=== PATIENT | female | born 1995 | race Caucasian/White ===

== ENCOUNTER 2019-09-22 12:12 | Outpatient (CLI) | payer OTHER, SELFPAY ==
--- NOTE | ~2019-09-22 | XR_ITS ---
EXAMINATION: XR wrist LT w scaphoid DATE: 09/22/2019 12:40 INDICATION: Left wrist pain. TECHNIQUE: 5 views of left wrist were obtained. COMPARISON: None. FINDINGS: Bone alignment is normal. No fracture. Joint spaces are well maintained. IMPRESSION: 1. Normal left wrist. Reviewed, dictated and finalized at location A. IMPRESSION: 1. Normal left wrist.
== END 2019-09-22 12:13 | disposition home or self-care (01) ==
LOC: ANHIMG 12:17
PROVIDERS: PCP Family Medicine; Visit Provider Physician Assistant
DX: M25.532 Pain in left wrist (principal)
CPT/HCPCS: 73110

== ENCOUNTER 2020-01-10 16:24 | Emergency (ER) | payer OTHER, SELFPAY ==
--- NOTE | ~2020-01-10 | XR_ITS ---
EXAMINATION: XR chest 2V EXAM DATE: 01/10/2020 16:54 INDICATION: Anterior chest pain for 2 weeks. TECHNIQUE: Frontal and lateral projections of the chest obtained and reviewed. There is no prior kyle dy for comparison. FINDINGS: The lungs are clear. There are no pleural effusions. The cardiomediastinal silhouette is within normal limits. There is no pneumothorax suspected. The bones and soft tissues are unremarkab le. IMPRESSION: No acute cardiopulmonary findings. Reviewed, dictated and finalized at location B.
[2020-01-10 16:35] VITALS: BP 154/97; PULSE 108; RESP 14; TEMP 36.9; O2SAT 100
--- NOTE | 2020-01-10 16:39 | ED.GENADULT ---
HPI - General Adult General Chief complaint: Upper Respiratory Infection Stated complaint: trouble breathing Time Seen by Provider: 01/10/20 16:40 Source: patient Mode of arrival: ambulatory Limitations: no limitations History of Present Illness HPI narrative: 24-year-old female patient presents to the [facility] with complaints of shortness of breath for the past 2 weeks. Patient states that she did have a coworker and they came up positive for COVID and patient states that she was tested on Friday and she was negative. Patient states that she does have a little bit of chest pain at times when she breathes in but no chest pain when breathing out. Patient states that she does have a cough at times and a little bit of congestion to the nose but no runny nose, no ear pain, no sore throat. No abdominal pain, nausea, vomiting or diarrhea. No fevers. And denies being on control at this time. Patient does have a history of asthma and does have an inhaler at home but she states that it last month and she has not tried using her inhaler at this time. Related Data Home Medications Medication Instructions Recorded Confirmed escitalopram oxalate 10 mg tablet 10 mg PO DAILY 04/26/19 01/10/20 Allergies Allergy/AdvReac Type Severity Reaction Status Date / Time cefdinir Allergy Unknown Abdominal Verified 01/10/20 16:46 pain Cephalosporins Allergy Unknown Abdominal Verified 01/10/20 16:46 pain citalopram Allergy Unknown Confusion Verified 01/10/20 16:46 Penicillins Allergy Unknown Urticaria Verified 01/10/20 16:46 Plan B (1.5mm levorogestrel) Allergy Intermediate urticaria Uncoded 11/09/19 11:15 Review of Systems Review of Systems: Narrative: CONSTITUTIONAL: Denies fever, chills, or sweats. EYES: Denies visual changes, redness, or discharge. ENT: Denies rhinorrhea, congestion, sore throat, or otalgia. CARDIOVASCULAR: Denies chest pain, palpitations, or edema. RESPIRATORY: Positive cough with dyspnea. GASTROINTESTINAL: Denies abdominal pain, nausea, vomiting, or diarrhea. GENITOURINARY: Denies dysuria or hematuria. SKIN: Denies rash or itching. MUSCULOSKELETAL: Denies back pain, joint pain, or myalgia. NEUROLOGIC: Denies headache, numbness, or weakness. PSYCHIATRIC: Denies anxiety or depression. COUNTS INCLUDE 234 BEDS AT THE [facility] Past Medical History Medical History Allergic drug reaction Left wrist pain Family History Family History Mother Diabetes mellitus Family history of mental disorder Family history of migraine headaches Hypertension Patient's mother is in good health Family history of restless legs syndrome Grandparent Family history of hypercholesterolemia Family history of mental disorder Depression Hypertension Cerebrovascular accident Family history of dementia, Onset Age: 79 Father Hypertension Patient's father is in good health Social History Social History Smoking status: Never smoker Alcohol intake: current Additional living arrangements comments: with parents 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 Gender identity (if verbalized by the patient): Female Comments At the time of my signature I agree with nursing past medical history, surgical, social, and family history. There is no relevant family history pertinent to the presenting complaint. Exam Narrative: Exam Narrative: GENERAL: Well-appearing, well-nourished, and in no acute distress. HEAD: Normocephalic, atraumatic. EYES: PERRLA and EOMI. ENT: Nares clear, no rhinorrhea or epistaxis. Mucous membranes moist. Bilateral TMs are clear with no erythema or foreign bodies of the canal. Posterior pharynx with no erythema, tonsillar margin, exudates or lesions present. NECK: Supple. No lymphadenopathy CHEST: Clear to auscultation. No respirato
== END 2020-01-10 17:13 | disposition home or self-care (01) ==
PROVIDERS: Emergency Provider Nurse Practitioner Family; PCP Family Medicine
DX: J45.21 Mild intermittent asthma with (acute) exacerbation (principal)
CPT/HCPCS: 71046; 99213; G0463

== ENCOUNTER 2020-02-18 10:54 | Emergency (ER) | payer OTHER, SELFPAY ==
--- NOTE | ~2020-02-18 | XR_ITS ---
EXAMINATION: XR ankle LT min 3V EXAM DATE: 02/18/2020 11:17 INDICATION: Initial encounter following injury, with pain of the left ankle. TECHNIQUE: Left ankle frontal, lateral and oblique projections obtained and reviewed. There is no pr ior study for comparison. FINDINGS: There are several ossifications between the left fibular tip and the talus, one of which i s clearly well corticated and chronic. Less certain about the smaller ossification, potentially could be a superimposed acute avulsion fracture. Please clinically correlate. No other suspicious finding s. IMPRESSION: Left distal fibular tip chronic or acute on chronic avulsion injury. Reviewed, dictated and finalized at location B. IMPRESSION: Left distal fibular tip chronic or acute on chronic avulsion injur y.
[2020-02-18 11:03] VITALS: BP 136/66; PULSE 107; RESP 16; TEMP 37.2; O2SAT 100
--- NOTE | 2020-02-18 11:10 | PC.NURSE ---
PT DECLINES WHEELCHAIR TO RADIOLOGY
--- NOTE | 2020-02-18 11:53 | ED.LOWEXIN ---
HPI - Extremity Injury (Lower) General Chief Complaint: Extremity Injury, Lower Stated Complaint: left ankle twist Time Seen by Provider: 02/18/20 11:42 Source: patient and RN notes reviewed Mode of arrival: ambulatory Limitations: no limitations History of Present Illness HPI Narrative: Patient presents today complaining of an injury To her left ankle. She fell while walking just prior to arrival. Numbness or tingling in the leg or foot. She has been nonambulatory since the injury and has been using crutches. She currently rates her pain 8/10 and has tried no medication or [id number] interventions prior to arrival. Reports previous ankle fracture in the currently affected ankle as a child. Most of her pain is lateral. MD complaint: ankle injury Related Data Home Medications Medication Instructions Recorded Confirmed escitalopram oxalate 10 mg tablet 10 mg PO DAILY 04/26/19 02/18/20 flu vac [id number] 36mos up(PF) See Rx Instructions .ROUTE .COMPLEX 02/18/20 02/18/20 [Afluria Qd 2020-21(3yr up)(PF)] Allergies Allergy/AdvReac Type Severity Reaction Status Date / Time cefdinir Allergy Unknown Abdominal Verified 02/18/20 11:12 pain Cephalosporins Allergy Unknown Abdominal Verified 02/18/20 11:12 pain citalopram Allergy Unknown Confusion Verified 02/18/20 11:12 Penicillins Allergy Unknown Urticaria Verified 02/18/20 11:12 Plan B (1.5mm levorogestrel) Allergy Intermediate urticaria Uncoded 11/09/19 11:15 Review of Systems Review of Systems: Narrative: CONSTITUTIONAL: Denies body aches, fever, chills, or sweats. EYES: Denies visual changes, redness, or discharge. ENT: Denies rhinorrhea, congestion, sore throat, or otalgia. CARDIOVASCULAR: Denies chest pain, palpitations, or edema. RESPIRATORY: Denies cough or dyspnea. GASTROINTESTINAL: Denies abdominal pain, nausea, vomiting, or diarrhea. GENITOURINARY: Denies dysuria or hematuria. SKIN: Denies rash, itching, or wounds. MUSCULOSKELETAL: Denies back pain, or myalgia. +Left ankle injury NEUROLOGIC: Denies headache, numbness, tingling, or weakness. PSYCH: Denies depression or anxiety. [facility] Social History Social History (Reviewed 01/10/20 @ 16:43 by AJ Fay Smoking status: Never smoker Alcohol intake: current Additional living arrangements comments: with parents 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 Gender identity (if verbalized by the patient): Female Comments At time of signature, I have reviewed and agree with nursing past medical, surgical, social and family history unless otherwise noted. Please see nursing chart for further information. There is no relevant family history pertinent to the presenting complaint Exam Narrative: Exam Narrative: GENERAL: Well-appearing, well-nourished, and in no acute distress. HEAD: Normocephalic, atraumatic. EYES: EOMI. No redness or drainage. Conjunctivae normal. ENT: Mucous membranes pink and moist. NECK: Normal AROM. CHEST: No respiratory distress. EXTREMITIES: Left ankle:Tenderness and mild edema to the lateral malleolus with mild ecchymosis. No tenderness posteriorly or medially. No tenderness to the foot. Distal sensation intact. Capillary refill normal. Pedal pulse normal. Limited AROM of the ankle due to pain. SKIN: Warm, dry, no rash. Capillary refill normal. Normal skin turgor. NEURO: No focal deficits. Alert and oriented x3. Gait steady. PSYCH: Normal affect. No signs of depression or anxiety. Course Course Emergency Course: Patient has a walking boot at home. We will Daniel wrap her ankle here, she will go home and put on her walking boot, and follow-up with orthopedics. Vital Signs Vital signs: Vital Signs Temperature 98.9 F 02/18/20 11:03 Pulse Rate 107 H 02/18/20 11:03 Respiratory Rate 16 02/18/20 11:03 Blood Pressure 136/66 02/18/20 11:03 Pulse Oximetry 100 02/18/20 11:03 Temperature 98.9 F 02/18/20 11:03
== END 2020-02-18 12:00 | disposition home or self-care (01) ==
PROVIDERS: Emergency Provider Nurse Practitioner; PCP Family Medicine
DX: S82.832A Other fracture of upper and lower end of left fibula, initial encounter for closed fracture (principal); W19.XXXA Unspecified fall, initial encounter; J45.909 Unspecified asthma, uncomplicated; F32.9 Major depressive disorder, single episode, unspecified
CPT/HCPCS: 73610; 99214; G0463

== ENCOUNTER 2020-04-21 00:43 | Outpatient (CLI) | payer OTHER, SELFPAY ==
[2020-04-21 21:25] LABS: SARS-CoV-2 RNA PCR Negative
== END 2020-04-21 00:44 | disposition home or self-care (01) ==
LOC: ANHCOVIDDT 00:43
PROVIDERS: PCP Family Medicine; Visit Provider Orthopaedic Surgery
DX: Z01.812 Encounter for preprocedural laboratory examination (principal); Z20.828 Contact with and (suspected) exposure to other viral communicable diseases
CPT/HCPCS: 87635; C9803; U0003

== ENCOUNTER 2020-04-24 01:44 | Day surgery (SDC) | payer OTHER, SELFPAY ==
[2020-04-10 13:20] VITALS: BMI 27.4
[2020-04-24] MEDS: ACETAMINOPHEN 500 MG TABLET 1000 MG PO (12:25)
[2020-04-24 12:30] VITALS: BP 127/73; PULSE 92; RESP 16; TEMP 36.7; O2SAT 98
[2020-04-24] MEDS: LACTATED RINGERS 1,000 ML 30 ML IV CONT (12:35)
[2020-04-24] MEDS: KETOROLAC 15 MG/ML VIAL (*BKC) IV PUSH (12:38)
--- NOTE | 2020-04-24 13:00 | WPDANESEPPF ---
Anes - Initial Pre Proc Eval Procedure: Operation Date: 04/24/20 14:00 Proposed Procedures p Left First Dorsal Compartment Release - Ehsan Pa MD Date/Time: 04/24/20 13:00 Surgeon: Ehsan Pa MD Pre Op Diagnosis: Left De Quervains Disease Patient Data Age: 25 Gender: F Height: 5 ft 6 in Weight: 76.2 kg Last Vital Signs Temp 36.7 C 04/24/20 12:30 Pulse 92 04/24/20 12:30 Resp 16 04/24/20 12:30 BP 127/73 04/24/20 12:30 Pulse Ox 98 04/24/20 12:30 Allergies Allergy/AdvReac Type Severity Reaction Status Date / Time Penicillins Allergy Severe Urticaria Verified 04/24/20 12:06 citalopram Allergy Mild Rash Verified 04/24/20 12:06 cefdinir AdvReac Mild Abdominal Verified 04/24/20 12:06 pain Cephalosporins AdvReac Mild Abdominal Verified 04/24/20 12:06 pain Plan B (1.5mm levorogestrel) Allergy Mild urticaria Uncoded 04/24/20 12:06 Home Medications Medication Instructions Recorded Confirmed Type albuterol sulfate [Ventolin HFA] 2 puff INHALATION PRN PRN 04/10/20 04/10/20 History apple cider vinegar 500 mg PO QAM 04/10/20 04/24/20 History atomoxetine [Strattera] 80 mg PO QAM 04/10/20 04/24/20 History trazodone 50 mg PO HS 04/10/20 04/24/20 History Patient hx anesthesia problems: none Family hx anesthesia problems: none PMFSH Past Medical History Medical History ADHD (attention deficit hyperactivity disorder), inattentive type Allergic drug reaction Chronic anxiety Chronic depression Left ankle sprain Left wrist pain Mild intermittent asthma in adult without complication Panic attacks Family History Family History Mother Diabetes mellitus Family history of mental disorder Family history of migraine headaches Hypertension Patient's mother is in good health Family history of restless legs syndrome Grandparent Family history of hypercholesterolemia Family history of mental disorder Depression Hypertension Cerebrovascular accident Family history of dementia, Onset Age: 79 Father Hypertension Patient's father is in good health Social History Social History Smoking status: Never smoker Alcohol intake: current Alcohol use details: 2 DRINKS PER MONTH Living arrangements: with family Additional living arrangements comments: with parents Additional occupation/education comments: [employer] Gender identity (if verbalized by the patient): Female Spiritual care concerns: No Anes - Eval Final PreProcedure Day of Procedure 04/24/20 13:00 Patient weight: overweight Heart: regular rate and rhythm Lungs: clear to auscultation Airway: Mallampati scale class II Neurological: alert and oriented Last oral intake: >/= 8 hours ASA classification: III Emergent: no Anesthetic plan: proceed Anesthesia type and monitoring: general LMA and standard monitoring Informed Consent: The patient's anesthetic plan and its attendant risks and benefits were discussed with the patient/family/POA. Questions were solicited and answers provided to the satisfaction of the patient/family/POA.
--- NOTE | 2020-04-24 13:19 | WPDHPUPDATE1 ---
History and Physical Update Update Date/Time: 04/24/20 13:19 History and Physical has been reviewed, including an updated exam of the patient. There are NO changes in the patient's condition. Risks, benefits, and alternatives have been discussed and questions answered. Patient agrees to proceed with procedure.
[2020-04-24] MEDS: CLINDAMYCIN 900 MG/D5W 50 ML 900 MG/50 ML PIGGYBACK 50 MG IVPB (13:23)
[2020-04-24 13:54] VITALS: BP 121/73; PULSE 89; RESP 14; O2SAT 100
--- NOTE | 2020-04-24 13:59 | PM.PROC ---
Procedure Note - Detailed Date of procedure: 04/24/20 Pre-op diagnosis: Left De Quervains Disease Post-op diagnosis: same Procedure performed: Left first dorsal compartment release Description of procedure: The patient was identified and proper site identified. She was taken to the operating room and transferred to the OR table placing her supine taking care to pad her torso and extremities. Nonsterile tourniquet was placed high on the left arm which was then prepped and draped in usual sterile fashion. She was administered IV sedation and several cc of 0.25% Marcaine and epinephrine chiseling was injected into the subcutaneous tissue over the left radial styloid. The extremity was exsanguinated and tourniquet inflated 250 mmHg remaining up for approximately 12 minutes. Longitudinal incision was made over the left first dorsal compartment. Subcutaneous tissue was bluntly dissected protecting neurovascular structures. The first dorsal compartment was identified and divided longitudinally in line with the incision. Was actually two parts to the compartment with a fiber soft tissue divider in between. This was excised to provide a complete release. The wound was irrigated with saline. Skin edges reapproximated with for 0 Prolene suture and Steri-Strips applied. Sterile dressing was applied. She tolerated the procedure well. She was transferred back to a cart and taken recovery area in stable condition. There were no known intraoperative complications. Estimated blood loss was negligible. Anesthesia: MAC and local Surgeon: Ehsan Pa MD Estimated blood loss (mL): 0 Drains: No Packing: No Pathology: none sent Complications: No immediate complications Condition: stable Disposition: PACU
[2020-04-24 14:24] VITALS: BP 108/64; PULSE 81; RESP 18; O2SAT 97
[2020-04-24 14:44] VITALS: BP 121/79; PULSE 68; RESP 16
== END 2020-04-24 14:55 | disposition home or self-care (01) ==
PROVIDERS: PCP Family Medicine; Visit Provider Orthopaedic Surgery
PROC: (CPT 25000; principal; 2020-04-24 14:00)
DX: M65.4 Radial styloid tenosynovitis [de Quervain] (principal); J45.20 Mild intermittent asthma, uncomplicated; F41.8 Other specified anxiety disorders; F90.0 Attention-deficit hyperactivity disorder, predominantly inattentive type
CPT/HCPCS: 25000; 87635; A9270; C9803; J1885; J2250; J2704; J3010; J7120; U0003

== ENCOUNTER 2021-12-11 00:11 | Day surgery (SDC) | payer BC, SELFPAY ==
[2021-12-04 15:06] VITALS: BMI 26.6
--- NOTE | 2021-12-04 15:13 | PC.NURSE ---
Report to the Outpatient Waiting Room, entrance under the green pavilion located off [facility], at time 0600 on date 12/11/21. OR Time: 0730. - You and your visitor will be asked a series of questions to screen for COVID 19 for your protection. - Only one visitor is allowed at this time. - The patient visitor is requested to leave or wait in car when not with patient. - A mask is required within the hospital. Patients may have clear liquids (water, carbonated beverages, clear teas, apple juice) until 3 hours prior to surgery with a maximum of 20 ounces. - No food from midnight until time of surgery Take the following medications with a SIP of water the morning of surgery: BUSPIRONE, INHALER (IF NEEDED) Medications to discontinue per physician: N/A Date to take last dose: N/A Please no make-up, nail spanish, hairspray, perfume, deodorant, or body powder the day of surgery. No jewelry (including any body piercings) or valuables the day of surgery, leave them at home. Please take a shower or bath the night before, or the morning of, surgery with an antibacterial soap. Wear comfortable, loose fitting clothing. - Jewelry must be removed prior to entering the operating room. Rings and piercings that are not removed may be cut off. - The hospital will not accept responsibility for valuables. - Please leave all valuables, including medications, at home the day of surgery. If you are going home after surgery, a licensed rivet driver must drive you home. - NO public transportation without another adult. - We recommend that an adult stay with you for 24 hours following discharge. - We also recommend that you do not drive, make important decision, drink alcoholic beverages, or take any drugs that were not prescribed by your health care provider for at least 24 hours after your discharge time. Follow any additional instructions given to you from your surgeon. If you or anyone in your household have experienced Covid symptoms in the past week, please notify your surgeon or the nurse liaison at the phone number below for possible testing. Telephone instructions given to PT - JEFF ROCK and asked if any additional questions and then verbalized understanding. Patient advised to call surgeon office or pre surgery nurse liaison [phone] if any additional questions.
--- NOTE | 2021-12-10 14:48 | WPDANESEPPF ---
Anes - Initial Pre Proc Eval Procedure: Operation Date: 12/11/21 07:30 Proposed Procedures p Left Trigger Thumb Release - Ehsan Pa MD Date/Time: 12/10/21 14:48 Surgeon: Ehsan Pa MD Pre Op Diagnosis: left trigger thumb Patient Data Age: 26 Gender: F Height: 1.68 m Weight: 74.84 kg Allergies Allergy/AdvReac Type Severity Reaction Status Date / Time Penicillins Allergy Severe Urticaria Verified 12/11/21 06:24 citalopram Allergy Mild Rash Verified 12/11/21 06:24 levonorgestrel [From Plan B] Allergy Mild urticaria Verified 12/11/21 06:24 cefdinir AdvReac Mild Abdominal Verified 12/11/21 06:24 pain Cephalosporins AdvReac Mild Abdominal Verified 12/11/21 06:24 pain Home Medications Medication Instructions Recorded Confirmed Type albuterol sulfate 90 mcg/actuation 2 puff inhalation PRN PRN SOB #8.5 06/04/21 12/04/21 Rx aerosol inhaler (Ventolin HFA) grams atomoxetine 100 mg capsule 100 mg PO QAM #90 caps 07/16/21 12/11/21 Rx (Strattera) trazodone 50 mg tablet 50 mg PO HS INSOMNIA #90 tabs 07/16/21 12/11/21 Rx buspirone 15 mg tablet 15 mg PO BID #60 tabs 09/03/21 12/11/21 Rx Patient hx anesthesia problems: none Family hx anesthesia problems: none Results Review: All pre-operative results and documents have been reviewed as part of the pre-operative evaluation. [facility], [facility] Past Medical History Medical History ADHD (attention deficit hyperactivity disorder), inattentive type Allergic drug reaction Cellulitis and abscess of face (~07/19/21) infected piercing in nose Chronic anxiety Chronic depression COVID-19 (05/27/21) fully vaccinated and positive test on 05/31/2021 Left ankle sprain Left wrist pain Mild intermittent asthma in adult without complication Panic attacks Pressure in chest Racing heart beat Surgical History Surgical History De Quervain's disease (radial styloid tenosynovitis) Left first dorsal compartment release March 2020 Family History Family History Mother Diabetes mellitus Family history of mental disorder Family history of migraine headaches Hypertension Patient's mother is in good health Family history of restless legs syndrome Grandparent Family history of hypercholesterolemia Family history of mental disorder Depression Hypertension Cerebrovascular accident Family history of dementia, Onset Age: 79 Father Hypertension Patient's father is in good health Social History Social History Smoking status: Never smoker Tobacco type: cigarettes 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 Alcohol intake: current Alcohol use details: 2 DRINKS PER MONTH Substance use: never Substance use type: does not use Living arrangements: alone Additional living arrangements comments: with parents 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 Gender identity (if verbalized by the patient): Female Spiritual care concerns: No Anes - Eval Final PreProcedure Day of Procedure 12/10/21 14:48 Patient weight: overweight Heart: regular rate and rhythm Lungs: clear to auscultation Airway: Mallampati scale class II Neurological: alert and oriented Last oral intake: >/= 8 hours ASA classification: II Emergent: no Anesthetic plan: proceed Anesthesia type and monitoring: general GIVS and LMA and standard monitoring Results Review: All pre-operative results and documents have been reviewed as part of the pre-operative evaluation. Informed Consent: The patient's anesthetic plan and its attendant risks and benefits were discussed with the patient/family/POA. Questions were solicited and answers provided to the satisfaction of the patient/family/POA.
[2021-12-11] MEDS: ACETAMINOPHEN 500 MG TABLET 1000 MG PO (06:27)
[2021-12-11] MEDS: LACTATED RINGERS 1,000 ML 30 ML IV CONT (07:03)
[2021-12-11] MEDS: KETOROLAC 15 MG/ML VIAL (*BKC) IV PUSH (07:05)
[2021-12-11 07:13] VITALS: BP 141/88; PULSE 75; RESP 16; TEMP 36.2; O2SAT 100
--- NOTE | 2021-12-11 07:18 | WPDHPUPDATE1 ---
History and Physical Update Update Date/Time: 12/11/21 07:18 History and Physical has been reviewed, including an updated exam of the patient. There are NO changes in the patient's condition. Risks, benefits, and alternatives have been discussed and questions answered. Patient agrees to proceed with procedure.
[2021-12-11] MEDS: ceFAZolin 2 GM/D5W 50 ML 2 GM/50 ML BAG IVPB (07:28)
[2021-12-11] MEDS: BUPIVACAINE HCL 0.25% PF 30 ML VIAL 4 ML INFILTRATE (07:50)
[2021-12-11 07:59] VITALS: BP 121/76; PULSE 90; RESP 16; O2SAT 100
--- NOTE | 2021-12-11 08:07 | P.OP_ITS ---
Procedure Note - Detailed Date of Procedure 12/11/21 Pre-op Diagnosis left trigger thumb Post-op Diagnosis Same Procedure Performed Left trigger thumb release Surgeon Ehsan Pa MD Anesthesia MAC and Local Description of Procedure The patient was identified and proper site identified. She taken to the op erating room and transferred to the OR table placing supine taking care to pad the torso and extremities. She was administered IV sedation. A nonsterile tourniquet was placed high on the left arm which was prepped and draped in the usual sterile fashion. Several cc of .25 % plain Marcaine was injected into the subcutaneous tissue over the A1 kinjal of the left first digit. The extremity was exsanguinated and the tourniquet was inflated to 200mmHg remaining up for about 8 minutes. A longitudinal incision was made over the A1 kinjal. Subcutaneous tissue was bluntly dissected down to the kinjal while protecting the neurovascular bundles. The A1 kinjal was identified and then transected longitudinally in line with the incision and tendons. The tendons were deli selena into the wound verifying the adequacy of the release. Hemostasis was carried out. The wound was irrigated with sterile saline. Skin edges were reapproximated with 4-0 nylon suture. Sterile dressing was applied. Tourniquet was released. She tolerated the procedure well and was transferred back to a cart, then taken to the recovery area in stable condition. There were no known intraoperative complications. Estimated blood loss was negligible. Perioperative antibiotics were administered. Estimated Blood Loss 0 Tourniquet Time 8 Drains No Packing No Pathology None sent Complications No immediate complications Condition Stable Disposition PACU
[2021-12-11 08:25] VITALS: BP 112/67; PULSE 68; RESP 16; O2SAT 100
[2021-12-11 08:45] VITALS: BP 120/84; PULSE 78; RESP 16
== END 2021-12-11 09:00 | disposition home or self-care (01) ==
PROVIDERS: PCP Family Medicine; Visit Provider Orthopaedic Surgery
PROC: (CPT 26055; principal; 2021-12-11 07:30)
DX: M65.312 Trigger thumb, left thumb (principal); J45.20 Mild intermittent asthma, uncomplicated; F90.9 Attention-deficit hyperactivity disorder, unspecified type; F41.9 Anxiety disorder, unspecified; F32.A Depression, unspecified; Z86.16 Personal history of COVID-19; Z79.51 Long term (current) use of inhaled steroids
CPT/HCPCS: 26055; A9270; J0690; J1885; J2250; J2704; J3010; J7120

== ENCOUNTER 2021-12-24 11:49 | Outpatient (CLI) | payer BC, SELFPAY ==
--- NOTE | 2021-12-24 12:19 | ECHO_ITS ---
Patient Info Name: Ira Apple Age: 26 years : 1995 Gender: Female Ht: 66 in Wt: 155 lbs BSA: 1.82 m2 HR: 78 bpm BP: 127 / 91 mmHg Technical Quality: Good Exam Date: 12/24/2021 1:12 PM Exam Location: [facility] Pulmonary Patient Status: Outpatient Admit Date: 12/24/2021 Staff Ordering Physician: Ca Vasquez NP Line Tester: Pattie Herr RDCS Attending Provider: Ca Vasquez NP Exam Type: CA echo doppler color flow Study Info Indications - tachycardia R00.8 - Other abnormalities of heart beat Summary 1. Left ventricular chamber dimension is normal. 2. Left ventricular systolic function is normal, estimated at 60-65%. 3. The left ventricular diastolic function is normal. 4. E/e' 5 is not elevated. 5. There is mild mitral valve regurgitation. 6. There is mild tricuspid valve regurgitation. 7. No pulmonary hypertension, estimated pulmonary arterial systolic pressure is 29 mmHg. Left Ventricle E/e' 5 is not elevated. Left ventricular chamber dimension is normal. Left ventricular systolic function is normal, estimated at 60-65%. The left ventricular diastolic function is normal. Right Ventricle Right ventricular chamber dimension is normal. Right ventricular systolic function is normal. Left Atria Left atrial chamber dimension is normal. Right Atria Right atrial chamber dimension is normal. Aortic Valve The aortic valve is trileaflet. There is no aortic valve stenosis. There is no aortic valve regurgitation. Pulmonic Valve There is no pulmonic regurgitation. Mitral Valve There is no mitral valve stenosis. There is mild mitral valve regurgitation. Tricuspid Valve There is mild tricuspid valve regurgitation. No pulmonary hypertension, estimated pulmonary arterial systolic pressure is 29 mmHg. Pericardium/Pleural There is no pericardial effusion. Inferior Vena Cava Normal inferior vena cava with >50% collapse upon inspiration consistent with normal right atrial pressure, 5 mmHg. Aorta The aortic root size at the sinus of Valsalva is normal. Left Ventricular Outflow Tract Name Value Normal LVOT 2D LVOT Diameter 2.0 cm LVOT Doppler LVOT Peak Gradient 5 mmHg LVOT Mean Gradient 3 mmHg LVOT VTI 22 cm LVOT VTI/AV VTI Ratio 1.0 LVOT Stroke Volume 67 ml LVOT CO 15.7 l/min LVOT CI 8.6 l/min/m2 Pulmonic Valve Name Value Normal PV Doppler PV Peak Gradient 3 mmHg Mitral Valve Name Value Normal
--- NOTE | 2021-12-26 12:33 | WPDHOLTEREM ---
Holter/Event Monitor Holter/Event Monitor Date of procedure: 12/24/21 Holter/Event Procedure: 24 Hr Holter Monitor Indications: Tachycardia Conclusion: 1. 24 hour holter monitor on 12/24/21. 2. Underlying rhythm is sinus rhythm. HR range 53-145 bpm; average HR 87 bpm. 3. No premature supraventricular complexes. No supraventricular tachycardia. 4. There is 1 premature ventricular complexes. No ventricular tachycardia. 5. No sinoatrial or atrioventricular blocks. No significant pauses greater than 2 seconds. 6. Patient reports symptoms of chest pressure which demonstrate sinus rhythm, HR range 86-104 bpm.
== END 2021-12-24 11:50 | disposition home or self-care (01) ==
PROVIDERS: PCP Family Medicine; Visit Provider Nurse Practitioner Family
DX: R07.89 Other chest pain (principal); R00.0 Tachycardia, unspecified
CPT/HCPCS: 93225; 93226; 93306

== ENCOUNTER 2022-02-04 08:57 | Outpatient (CLI) | payer BC, SELFPAY ==
--- NOTE | 2022-02-04 14:07 | WPDPFTINT ---
PFT Procedure Performed PFT Procedure Performed Spirometry with Pre/Post Bronchodilator Plethysmography (Lung Vol) Diffusing Cap (DLCO) Flow Vol Loop PFT Interpretation Lung volumes were measured with the body plethysmography method. Lung volumes are unremarkable. Spirometry showed normal expiratory flow rates and a normal FEV1 to FVC ratio of 87%. Following administration of a bronchodilator there was no significant change in the expiratory flow rates. Lung diffusion capacity is within the normal range at 107% predicted. The flow volume may be indicative of suboptimal effort. Clinical correlation advised. Impression: Spirometry, lung volumes, and lung diffusion capacity all within the normal range.
== END 2022-02-04 08:58 | disposition home or self-care (01) ==
PROVIDERS: PCP Family Medicine; Visit Provider Nurse Practitioner Family
DX: J45.909 Unspecified asthma, uncomplicated (principal)
CPT/HCPCS: 94060; 94726; 94729

== ENCOUNTER 2022-02-18 14:00 | Outpatient (RCR) | payer BC, SELFPAY ==
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
--- NOTE | 2021-12-31 14:28 | OTOPEVAL ---
OCCUPATIONAL THERAPY INITIAL EVALUATION 12/31/2021 Thank you for referring Ira Apple to [facility].? The patient is scheduled to be seen for therapy?1-2x/week for 6 weeks. Please review, sign, date and return this plan of care AXEL. I agree with and certify that the following plan of care is medically necessary. Referring Physician Date Attending Provider: Angel Hopson APN *OT Outpatient Evaluation Start: 12/31/21 12:37 Freq: Status: Active Protocol: Document 12/31/21 12:57 KJL (Rec: 12/31/21 14:20 KJL [id number]) Assessment Status Evaluation Evaluation Information Problem Diagnosis Trigger Thumb release 2021 Additional Evaluation Detail Patient reports trigger thumb on L hand beginning of 2021. Had a cortisone injection in July 2021 which did not work. Had surgery for a trigger thumb release on 12/11/2021. Subjective Information Patient reports prior to Query Text:As Reported By Patient/ surgery, there was increased Family triggering and pain daily. Patient report since surgery, still experiencing popping of thumb. Patient report thumb is uncomfortable, difficulties with gripping, grasping, increased stiffness. 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 Prior Level of Function Activity Level (Last 3 Months) Hand Dominance Right Activity of Daily Living Ability Independent Indoor/Home Mobility Independent Community Mobility Independent Stairs Ability Independent Functional Cognition (Planning, Shopping Independent , Taking Medications) Cooking Yes Cleaning Yes Laundry Yes Shopping Yes Driving Yes Pain Assessment Timing of Pain Assessment Timing of Pain Assessment Assessment Pain Scale Pain Scale Used Numeric (1 - 10) Self Report Pain Assessment Left Thumb(s) Reported Pain Level 0 Pain Description Incisional,Tender on Palpation ,Tightness Lowest Pain Intensity 0 Greatest Pain Intensity 4 Pain Score Pain Scor
--- NOTE | 2021-12-31 14:42 | OTOPEVAL ---
OCCUPATIONAL THERAPY INITIAL EVALUATION: 12/31/2021 Thank you for referring Ira Apple to [facility].? The patient is scheduled to be seen for therapy? 0-1x/week for 6 weeks. Please review, sign, date and return this plan of care AXEL. I agree with and certify that the following plan of care is medically necessary. Referring Physician Date Attending Provider: REGINA MonetOT Outpatient Evaluation Start: 12/31/21 12:37 Freq: Status: Active Protocol: Document 12/31/21 12:57 KJL (Rec: 12/31/21 14:20 KJL [id number]) Assessment Status Evaluation Evaluation Information Problem Diagnosis Trigger Thumb release 2021 Additional Evaluation Detail Patient reports trigger thumb on L hand beginning of 2021. Had a cortisone injection in July 2021 which did not work. Had surgery for a trigger thumb release on 12/11/2021. Subjective Information Patient reports prior to Query Text:As Reported By Patient/ surgery, there was increased Family triggering and pain daily. Patient report since surgery, still experiencing popping of thumb. Patient report thumb is uncomfortable, difficulties with gripping, grasping, increased stiffness. 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 Prior Level of Function Activity Level (Last 3 Months) Hand Dominance Right Activity of Daily Living Ability Independent Indoor/Home Mobility Independent Community Mobility Independent Stairs Ability Independent Functional Cognition (Planning, Shopping Independent , Taking Medications) Cooking Yes Cleaning Yes Laundry Yes Shopping Yes Driving Yes Pain Assessment Timing of Pain Assessment Timing of Pain Assessment Assessment Pain Scale Pain Scale Used Numeric (1 - 10) Self Report Pain Assessment Left Thumb(s) Reported Pain Level 0 Pain Description Incisional,Tender on Palpation ,Tightness Lowest Pain Intensity 0 Greatest Pain Intensity 4 Pain Score Pain Sco
--- NOTE | 2022-02-18 14:45 | OTOPDC ---
Assessment and note entered by Lisa Dumont, OT Evaluation Information Assessment Status Re-evaluation/Discharge Summary Reported Pain Level Pain Score 0: Self Report Assessment OT Clinical Summary Ira is a 26 year old female presenting to Outpatient Occupational Therapy s/p trigger finger release of L thumb on 12/11/2021 for re-evaluation following 4 weeks of treatment. 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 Strength is now WNL and comparable to R UE dominant hand. Patient 's active ROM of L thumb improved to WNL since initial evaluation. Subjectively patient reports strength and function of L thumb is back to normal and can complete all daily/work tasks without difficulties. Patient reports is back to baseline and does not feel she needs additional therapy at this time. No skilled OT is indicated, therapist and patient agreeable to discharge at this time with patient independent with all HEP materials. Plan of Care OT Services Indicated No
== END 2022-02-22 14:14 | disposition home or self-care (01) ==
LOC: ANHGOSHOT 14:00
PROVIDERS: PCP Family Medicine; Visit Provider Nurse Practitioner
DX: Z48.89 Encounter for other specified surgical aftercare (principal)
CPT/HCPCS: 97018; 97110; 97140; 97165

== ENCOUNTER 2022-04-02 14:22 | Emergency (ER) | payer BC, SELFPAY ==
--- NOTE | 2022-04-02 14:25 | ED.URI ---
HPI - URI/Sore Throat General Chief Complaint: Upper Respiratory Infection Stated Complaint: cough, runny nose, sore throat Time Seen by Provider: 04/02/22 14:25 Source: patient Mode of arrival: ambulatory Limitations: no limitations History of Present Illness HPI Narrative: Ms. Apple is a 27-year-old female patient presenting to clinic today with complaints sore throat, cough, and runny nose x4 days. She report that her PCP told her to come here for a influenza test although he is already sent her in a prescription for some azithromycin for her symptoms. She denies any fever or chills but has had a sore throat cough and runny nose. MD elicited complaint: sore throat and nasal congestion Related Data Home Medications Medication Instructions Recorded Confirmed cholecalciferol (vitamin D3) 1,250 50,000 unit PO WEEKLY 01/21/22 02/18/22 mcg (50,000 unit) tablet cyanocobalamin (vitamin B-12) 1,000 mcg PO DAILY 01/21/22 02/18/22 1,000 mcg tablet Allergies Allergy/AdvReac Type Severity Reaction Status Date / Time Penicillins Allergy Severe Urticaria Verified 02/18/22 09:33 citalopram Allergy Mild Rash Verified 02/18/22 09:33 levonorgestrel [From Plan B] Allergy Mild urticaria Verified 02/18/22 09:33 cefdinir AdvReac Mild Abdominal Verified 02/18/22 09:33 pain Cephalosporins AdvReac Mild Abdominal Verified 02/18/22 09:33 pain Review of Systems Review of Systems: Pertinent positives per HPI. Patient denies any fever, chills, rash, headache, visual changes, dizziness, shortness of breath, chest pain, palpitations, nausea, vomiting, diarrhea, constipation, abdominal pain, or any urinary issues. [facility] Past Medical History Medical History Acute bronchitis ADHD (attention deficit hyperactivity disorder), inattentive type Allergic drug reaction BMI 25.0-25.9,adult Cellulitis and abscess of face (~07/19/21) infected piercing in nose Chronic anxiety Chronic depression COVID-19 (05/27/21) fully vaccinated and positive test on 05/31/2021 Encounter for blood typing (02/11/22) Blood type is A positive on 02/12/2022 Left ankle sprain Left wrist pain Mild intermittent asthma in adult without complication Overweight (BMI 25.0-29.9) Panic attacks Pressure in chest Racing heart beat (~10/2021) Echocardiogram on 12/24/2021 with ejection fraction 60-65% with mild mitral valve regurgitation and tricuspid valve regurgitation. 24 hour Holter monitor on 12/24/2021 revealed sinus rhythm with no abnormalities. Symptoms of racing heart rate correlated with normal sinus rhythm. Vitamin B12 deficiency (11/27/21) level low at 280 with goal greater than 400 with folic acid 11.3 and hemoglobin 14.8 on 11/27/2021. Vitamin D deficiency, unspecified (~12/2021) Diagnosed and treated by stain remover Surgical History Surgical History De Quervain's disease (radial styloid tenosynovitis) Left first dorsal compartment release March 2020 Trigger thumb, left thumb Trigger thumb release December 11, 2021 Family History Family History Mother Diabetes mellitus Family history of mental disorder Family history of migraine headaches Hypertension Patient's mother is in good health Family history of restless legs syndrome Grandparent Family history of hypercholesterolemia Family history of mental disorder Depression Hypertension Cerebrovascular accident Family history of dementia, Onset Age: 79 Father Hypertension Patient's father is in good health Social History Social History Smoking status: Never smoker Tobacco type: cigarettes 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
[2022-04-02 14:42] VITALS: BP 135/102; PULSE 91; RESP 20; TEMP 37.4; O2SAT 100
== END 2022-04-02 15:11 | disposition home or self-care (01) ==
PROVIDERS: Emergency Provider Nurse Practitioner Family; PCP Family Medicine
DX: J06.9 Acute upper respiratory infection, unspecified (principal); J02.9 Acute pharyngitis, unspecified; R03.0 Elevated blood-pressure reading, without diagnosis of hypertension; Z87.891 Personal history of nicotine dependence; Z86.16 Personal history of COVID-19; J45.909 Unspecified asthma, uncomplicated; E55.9 Vitamin D deficiency, unspecified; E53.8 Deficiency of other specified B group vitamins
CPT/HCPCS: 87081; 87804; 87880; 99213; G0463

== ENCOUNTER 2023-02-26 19:08 | Emergency (ER) | payer OTHER, BC, SELFPAY ==
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
--- NOTE | ~2023-02-26 | CT_ITS ---
Noncontrast CT scan of the cervical spine Technique: Multiple contiguous axial [address] images of the cervical spine were obtained and rec onstructed in 2D sagittal and coronal planes on the acquisition scanner. Dose reduction technique was used on this scan by utilizing automated exposure control, adjustment of the mA and/or kV according to patient size. The dose-length product (DLP) was 361.77 mGy-cm. Clinical History: Pain Findings: No fractures or dislocations. Unremarkable visualized bony structures. The intervertebral disc spaces are preserved. No prevertebral soft tissue swelling. Impression: No fracture or subluxation of the cervical spine. Reviewed, dictated and finalized at location . Impression: No fracture or subluxation of the cervical spine.
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
--- NOTE | ~2023-02-26 | CT_ITS ---
CT of the Abdomen and Pelvis: Indication: Abdominal pain Technique: 2.5 mm axial scans were obtained through the abdomen and pelvis following intravenous adm inistration of 100 cc of Omnipaque 350. Dose reduction technique was used on this scan by utilizing a utomated exposure control and iterative reconstruction technique. The dose-length product (DLP) was 3 19.18 mGy-cm. Findings: Scans through the lung bases are unremarkable. The liver, spleen, pancreas, gallbladder, adrenals and kidneys are within normal limits. No evidence of aortic aneurysm. No lymphadenopathy. No bowel obstruction or bowel wall thickening. There is no evidence to suggest acute appendicitis. Images through the pelvis were performed. Urinary bladder unremarkable. No adnexal mass seen. No asci paulette. Impression: No significant abnormalities seen. Reviewed, dictated and finalized at [facility]. Impression: No significant abnormalities seen.
[2023-02-26 19:11] VITALS: BP 137/100; PULSE 74; RESP 16; TEMP 36.3; O2SAT 100
[2023-02-26 22:24] VITALS: BP 136/87; PULSE 67; RESP 20; O2SAT 100
[2023-02-26 22:31] VITALS: BP 128/89; PULSE 68; RESP 20; O2SAT 100
[2023-02-26 23:16] VITALS: BP 127/87; PULSE 70; RESP 19; O2SAT 100
[2023-02-26 23:31] VITALS: BP 129/96; PULSE 74; RESP 18; O2SAT 100
[2023-02-26 23:46] VITALS: BP 116/85; PULSE 68; RESP 20; O2SAT 100
[2023-02-27] VITALS (14 sets, daily range): BP systolic 118–142; BP diastolic 68–97; PULSE 60–89; RESP 16–20; O2SAT 100
--- NOTE | 2023-02-27 01:08 | PC.NURSE ---
Pt to CT at this time.
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
[2023-02-27] MEDS: ACETAMINOPHEN 500 MG TABLET 1000 MG PO (01:34)
[2023-02-27 01:42] LABS: Basophils Absolute Auto 0.1 K/mm3 (0.0-0.1); Basophils Percent Auto 0.7 % (0.2-1.2); Eosinophils Absolute Auto 0.2 K/mm3 (0-0.3); Eosinophils Percent Auto 2.2 % (0-4.4); Hematocrit 43.1 % (37.0-47.0); Hemoglobin 14.9 g/dL (12.0-15.0); Immature Granulocyte Absolute 0.02 K/mm3 (0.00-0.031); Immature Granulocyte Percent A 0.3 % (0-0.5); Lymphocytes Absolute Auto 1.92 K/mm3 (0.9-3.2); Lymphocytes Percent Auto 26.9 % (18.3-44.2); Mean Corpuscular HGB Conc 34.6 g/dl (32-36); Mean Corpuscular Hemoglobin 31.8 pg (26-34); Mean Corpuscular Volume 92.1 fl (80-100); Mean Platelet Volume 9.3 fl (7.4-10.4); Monocytes Absolute Auto 0.6 K/mm3 (0.1-0.6); Neutrophils Absolute Auto 4.3 K/mm3 (1.3-6.7); Neutrophils Percent Auto 60.9 % (45.5-73.1); Platelet Count Result 251 k/mm3 (150-375); Red Blood Count 4.68 M/mm3 (4.2-5.4); Red Cell Distribution Width 11.6 % (11.5-14.5); White Blood Count 7.1 K/mm3 (4.5-10.0)
[2023-02-27 01:51] LABS: Alanine Aminotransferase 23 U/L (6-35); Albumin Level 4.9 g/dL (3.5-5.1); Alkaline Phosphatase 57 U/L (38-126); Anion Gap 10 mmol/L (8-16); Aspartate Amino Transferase 24 U/L (14-36); Bilirubin,Total 0.7 mg/dL (0.2-1.3); Blood Urea Nitrogen 5 mg/dL (7-17); Calcium 9.4 mg/dL (8.4-10.2); Carbon Dioxide 27 mmol/L (22-30); Chloride 100 mmol/L (98-107); Estimated CRCL calculation 92 ml/min; Estimated Glomerular Filt Rate > 60; Glucose 96 mg/dL (65-110); Potassium 3.5 mmol/L (3.4-5.0); Sodium 137 mmol/L (137-145)
--- NOTE | 2023-02-27 07:07 | PC.NURSE ---
Report given to JOSUÉ Jefferson at this time.
== END 2023-02-27 07:22 | disposition home or self-care (01) ==
PROVIDERS: Emergency Provider Physician Assistant; PCP Family Medicine
DX: S16.1XXA Strain of muscle, fascia and tendon at neck level, initial encounter (principal); S09.90XA Unspecified injury of head, initial encounter; S80.02XA Contusion of left knee, initial encounter; J45.20 Mild intermittent asthma, uncomplicated; E53.8 Deficiency of other specified B group vitamins; E55.9 Vitamin D deficiency, unspecified; G25.81 Restless legs syndrome; F90.0 Attention-deficit hyperactivity disorder, predominantly inattentive type; F41.9 Anxiety disorder, unspecified; F32.A Depression, unspecified; Z86.16 Personal history of COVID-19; Z87.891 Personal history of nicotine dependence; V49.40XA Driver injured in collision with unspecified motor vehicles in traffic accident, initial encounter
CPT/HCPCS: 36415; 70450; 72040; 72125; 73030; 73502; 73562; 74177; 80053; 81025; 85025; 99284; A9270; Q9967

== ENCOUNTER → 2023-08-07 09:18 | Outpatient (CLI) | payer OTHER, SELFPAY ==
--- NOTE | ~2023-08-07 | XR_ITS ---
Lumbosacral Spine: AP, oblique, and lateral views Clinical History: Pain Findings: The normal lordotic curve is maintained. The vertebral bodies and posterior elements are i ntact. The intervertebral disc spaces are preserved. The sacroiliac joints are normally outlined. Impression: No significant abnormality. Reviewed, dictated and finalized at [facility]. Impression: No significant abnormality.
== END ==
PROVIDERS: PCP Nurse Practitioner Family; Visit Provider Nurse Practitioner Family
DX: M54.50 Low back pain, unspecified (principal)
CPT/HCPCS: 72110

== ENCOUNTER 2024-06-29 10:50 | Outpatient (CLI) | payer OTHER, SELFPAY ==
--- OUTSIDE RECORDS SUMMARY | 2024-06-29 11:33 | XMS_ITS | Clinical Summary ---
Author Organization [facility] Address [address] [place] [address] Phone Care Team Providers Care Molder Offbearer Name Role Phone Vikash Ibarra MD Primary Care Provider [phone] Sami Andersen MD Unavailable [phone] Allergies Active Allergy Reactions Criticality Noted Date Comments Cefdinir Unknown 04/04/2021 Cephalosporins Unknown 04/04/2021 Citalopram Unknown 04/04/2021 Penicillin G Unknown 04/04/2021 Medications busPIRone (BUSPAR) 15 MG Tablet Take 15 mg by mouth 2 times daily. 03/09/2021 Active traZODone (DESYREL) 50 MG Tablet TAKE 1 TABLET BY MOUTH AT BEDTIME FOR INSOMNIA 01/21/2021 Active valACYclovir (VALTREX) 500 MG Tablet TAKE 1 TABLET BY MOUTH TWICE DAILY FOR 5 DAYS 01/22/2021 Active Atomoxetine HCl 80 MG Capsule TAKE 1 CAPSULE BY MOUTH EVERY MORNING 02/10/2021 Active Family History Medical History Relation Name Comments Diabetes Mother Relation Name Status Comments Brother Alive Father Alive Mother Alive Social History Tobacco Use Types Packs/Day Years Used Date Smoking Tobacco: Never Smokeless Tobacco: Never Alcohol Use Standard Drinks/Week Comments Yes 0 (1 standard drink = 0.6 oz pur e alcohol) PHQ-2 Answer Date Recorded Total Score - Questions 1-9 0 03/26 Comments Unknown Sex and Gender Information Value Date Recorded Sex Assigned at Not on file Legal Sex Female 9:34 PM CDT Gender Identity Not on file Sexual Orientation Not on file Last Filed Vital Signs Vital Sign Reading Time Taken Comments Blood Pressure 118/86 04/04/2021 12:33 PM CENTRIFUGAL EXTRACTOR OPERATOR Pulse 99 04/04/2021 12:33 PM CENTRIFUGAL EXTRACTOR OPERATOR Temperature 36.7 ??C (98 ??F) 04/04/2021 12:33 PM CENTRIFUGAL EXTRACTOR OPERATOR Respiratory Rate - - Oxygen Saturation 98% 04/04/2021 12:33 PM CENTRIFUGAL EXTRACTOR OPERATOR Inhaled Oxygen Concentration - - Weight 73.5 kg (162 lb) 04/04/2021 12:33 PM CENTRIFUGAL EXTRACTOR OPERATOR Height 167.6 cm (5' 6 ) 04/04/2021 12:33 PM CENTRIFUGAL EXTRACTOR OPERATOR Body Mass Index 26.15 04/04/2021 12:33 PM CENTRIFUGAL EXTRACTOR OPERATOR Plan of Treatment Health Maintenance Due Date Last Done Comments Hepatitis C Virus (HCV) Screening 1993 Hepatitis B Immunization (1 of 3 - 19+ 3-dose series) 2012 Pap Smear 2014 Cervical Cancer Screening (CCS) 2023 HPV/Cotest 2023 Influenza Immunization (#1) 01/25/202401/24, 02/09/2019, 02/26/2018, Additional history exists SARS-COV-2 Immunization ( season) 2024 05/04/2021, 09/03/2020, 08/12/2020 Respiratory Syncytial Virus (RSV) Immunization (Adult) (1 - 1-dose 75+ series) 2068 DTaP/Tdap/Td Immunization Discontinued 03/10/2017 TdaP Immunization Completed 03/10/2017 Meningococcal Immunization (ACWY) Aged Out No longer eligible based on patient's age to complete this topic Pneumococcal Immunization Combined Aged Out No longer eligible based on patient's age to complete this topic Rotavirus Immunization Aged Out No lo nger eligible based on patient's age to complete this topic Insurance [facility] Care Teams Molder Offbearer Relationship Specialty Start Date End Date Vikash Ibarra MD [address] [address] PCP - General Family Medicine 02/23/21 Sami Andersen MD [address] [facility] [address] [place], [place] [address] Colon & Rectal Surgery 02/23/21
--- OUTSIDE RECORDS SUMMARY | 2024-06-29 11:34 | XMS_ITS | Encounter Summary ---
Author Organization [facility] Address [facility] [facility] [place] [address] [place] [address] Care Team Providers Care Marine Electrician Helper Name Role Phone Vikash Ibarra MD Primary Care Provider [phone] Reason for Referral * Surgical (Routine) - Closed Specialty Diagnoses / Procedures Referred By Amanda so Referred To Contact Procedures Case request operating room: COLONOSCOPY DIAGNOSTIC WITH/WITHOUT SPECIMEN BRUSH/WASH POSSIBLE POLYPECTOMY POSSIBLE BIOPSY Sami Andersen MD [address] [facility] [address] [place] [address] Phone: tel: fax: Referral ID Status Reason Start Date Expiration Date Visits Re quested Visits Authorized [id number] Closed 02/09/2021 03/11/2022 1 1 Encounter Details Date Type Department Care Team (Late st Contact Info) Description 02/09/2021 Prep for Procedure [facility] [address] [place] [address] Sami Andersen MD [address] [place] [address] Social History Tobacco Use Types Packs/Day Years Used Date Smoking Tobacco: Never Smokeless Tobacco: Never Alcohol Use Standard Drinks/Week Comments Yes 0 (1 standard drink = 0.6 oz pur e alcohol) rare Comments No Sex and Gender Information Value Date Recorded Sex Assigned at Not on file Legal Sex Female 8:33 PM CDT Gender Identity Not on file Sexual Orientation Not on file COVID-19 Exposure Response Date Recorded In the last month, have you been in contact with someone who was confirmed or suspected to have Coronavirus / COVID-19? No / Unsure 02/08/2021 8:35 PM CDT documented as of this encounter Plan of Treatment Not on file documented as of this encounter Visit Diagnoses Diagnosis Hemorrhoids- Primary Unspecified hemorrhoids without mention of complication documented in this encounter Care Teams Marine Electrician Helper Relationship Specialty Start Date End Date Vikash Ibarra MD [address] [place] [address] [address] [place] [address] PCP - General FAMILY PRACTICE 02/08/21 documented as of this encounter
--- OUTSIDE RECORDS SUMMARY | 2024-06-29 11:34 | XMS_ITS | Encounter Summary ---
Author Organization [facility] Address [address] [place] [address]. [place] [address] [place] [address] Care Team Providers Care Change Control Analyst Name Role Phone Vikash Ibarra MD Primary Care Provider [phone] Encounter Details Date Type Department Care Team (Late st Contact Info) Description 04/26/2022 M-Audiot Message Enc [facility] General Surgery [address], [address] [place] [address] Sami Andersen MD [address] [place] [address] Question Social History Tobacco Use Types Packs/Day Years Used Date Smoking Tobacco: Never Smokeless Tobacco: Never Alcohol Use Standard Drinks/Week Comments Not Currently 0 (1 standard drink = 0.6 oz pur e alcohol) rare Comments No Sex and Gender Information Value Date Recorded Sex Assigned at Not on file Legal Sex Female 8:33 PM CDT Gender Identity Not on file Sexual Orientation Not on file COVID-19 Exposure Response Date Recorded In the last 10 days, have yo u been in contact with someone who was confirmed or suspected to have Coronavirus/COVID-19? No / Unsure 03/27/2022 1:13 PM CDT documented as of this encounter Plan of Treatment Not on file documented as of this encounter Visit Diagnoses Not on filedocumented in this encounter Care Teams Change Control Analyst Relationship Specialty Start Date End Date Vikash Ibarra MD [address] [place] [address] [address] [place] [address] PCP - General FAMILY PRACTICE 02/08/21 documented as of this encounter
--- OUTSIDE RECORDS SUMMARY | 2024-06-29 11:34 | XMS_ITS | Patient Health Summary ---
Author Organization [facility] Address [address] [place] [address] Care Team Providers Care Garage Door Hanger Name Role Phone Unavailable Primary Care Provider Unavailabl e Note from [facility],non-owned Affiliates and Associated Physician Practices is amultiple site organization consisting of ambulatory clinics and hospital sitesin [place], [place], [place] and [place]. This disclosure is being madepursuant to the Care Everywhere program and may not contain all information available regarding this patient. Last updated 18.[facility] Allergies * Citalopram(Rash) -Medium Criticality * Cefdinir(Other) * Penicillins(Rash) -Medium Criticality Medications * Be aware that medications may not be up to date on this document. Alwaysverify current medications with the patient. * atomoxetine (STRATTERA) 80 MG capsule Take by mouth every morning * traZODone (DESYREL) 50 MG tablet Take 50 mg by mouth at bedtime * valACYclovir HCl (VALTREX PO) prn Active Problems No known active problems Social History Tobacco Use Types Packs/Day Years Used Date Smoking Tobacco: Never Smokeless Tobacco: Never Alcohol Use Standard Drinks/Week Comments Yes 0 (1 standard drink = 0.6 oz pur e alcohol) Sex and Gender Information Value Date Recorded Sex Assigned at Female 03/18/2021 10:13 PM CDT Gender Identity Not on file Sexual Orientation Straight 03/18/2021 10 :13 PM CDT Last Filed Vital Signs Vital Sign Reading Time Taken Comments Blood Pressure 132/84 07/08/2020 10:27 AM PURCHASE PRICE ANALYST Pulse 85 07/08/2020 10:27 AM PURCHASE PRICE ANALYST Temperature 37.2 ??C (99 ??F) 07/08/2020 10:27 AM PURCHASE PRICE ANALYST Respiratory Rate 16 07/08/2020 10:27 AM PURCHASE PRICE ANALYST Oxygen Saturation 98% 07/08/2020 10:27 AM PURCHASE PRICE ANALYST Inhaled Oxygen Concentration - - Weight 77.1 kg (170 lb) 07/08/2020 10:27 AM PURCHASE PRICE ANALYST Height 167.6 cm (5' 6 ) 07/08/2020 10:27 AM PURCHASE PRICE ANALYST Body Mass Index 27.44 07/08/2020 10:27 AM PURCHASE PRICE ANALYST
--- OUTSIDE RECORDS SUMMARY | 2024-06-29 11:34 | XMS_ITS | Clinical Summary ---
Author Organization [facility] Address [address] [facility] [place] [address] [place] [address] Care Team Providers Care Coldfusion Name Role Phone Vikash Ibarra MD Primary Care Provider [phone] Allergies Active Allergy Reactions Criticality Noted Date Comments Cefdinir Hives,Other (see comment),Unknown 07/08/2020 Cannot remember , stated maybe a rash and itching Cephalosporins Hives,Unknown 02/08/2021 Citalopram Hives,Rash,Unknown Medium 07/08/2020 Penicillin G Unknown 04/04/2021 Penicillins Hives,Rash Medium 07/08/2020 Medications traZODone 50 MG tablet Take 50 mg by mouth nightly at bedtime. Active valACYclovir 500 MG tablet Take 500 mg by mouth as needed. Active busPIRone 15 MG tablet 3 (three) times daily. Active metroNIDAZOLE (METROGEL) 0.75 % vaginal gel daily. Active fluconazole 150 MG tablet fluconazole 150 mg tablet TAKE 1 TABLET BY MOUTH EVERY DAY Active hydrocortisone (ANUSOL-HC) 2.5 % rectal cream Proctozone-HC 2.5 % topical cream perineal applicator APPLY RECTALLY TWICE DAILY Active busPIRone 15 MG tablet Take 15 mg by mouth 2 (two) times daily. 1 Active Atomoxetine HCl 100 MG Cap 80 mg. 2 Active Active Problems Problem Noted Date Diagnosed Date Internal hemorrhoid 02/09/2021 Family History Medical History Relation Comments Hypertension Father Diabetes Mother Hypertension Mother Relation Status Comments Father Alive Mother Alive Social History Tobacco Use Types Packs/Day Years Used Date Smoking Tobacco: Never Smokeless Tobacco: Never Tobacco Cessation:Counseling Given: No Alcohol Use Standard Drinks/Week Comments Not Currently 0 (1 standard drink = 0.6 oz pur e alcohol) rare Comments No Sex and Gender Information Value Date Recorded Sex Assigned at Not on file Legal Sex Female 8:33 PM CDT Gender Identity Not on file Sexual Orientation Not on file Last Filed Vital Signs Vital Sign Reading Time Taken Comments Blood Pressure 124/76 03/27/2022 1:40 PM CDT Pulse 89 03/27/2022 1:18 PM CDT Temperature 36.8 ??C (98.2 ??F) 03/27/2022 1:18 PM CD T Respiratory Rate 20 03/27/2022 1:18 PM CDT Oxygen Saturation 98% 03/27/2022 1:18 PM CDT Inhaled Oxygen Concentration - - Weight 72 kg (158 lb 12.8 oz) 03/27/2022 1:18 PM CDT Height 167.6 cm (5' 6 ) 03/27/2022 1:18 PM CDT Body Mass Index 25.63 03/27/2022 1:18 PM CDT Plan of Treatment Health Maintenance Due Date Last Done Comments Annual Physical 1996 Hepatitis C 2011 DTaP, Tdap and Td Vaccines (1 - Tdap) 2012 Hepatitis B Vaccines (1 of 3 - 19+ 3-dose series) 2012 Cervical Cancer Screening Pap with HPV Testing (Age 30 to 64) Every 5 Years 2023 12/17/2021, 02/05/2021 COVID-19 Vaccine ( - season) 2024 09/03/2020, 08/12/2020 Influenza Adult (#1) 2024 Cervical Cancer Screening Pap Smear (Age 30 to 64) Every 3 Years 12/17/2024 12/17/2021, 12/17/2021, 12/17/2021, Additional history exists Cervical Cancer Screening with HPV 12/17/2024 HPV Vaccines Aged Out No longer eligi ble based on patient's age to complete this topic Meningococcal B Vaccine Aged Out No l onger eligible based on patient's age to complete this topic Meningococcal Vaccine Aged Out No edelmira yvan eligible based on patient's age to complete this topic Pneumococcal Vaccine: Pediatrics (0 to 5 Years) and At-Risk Patients (6 to 64 Years) Aged Out No longer eligible based on patient's age to complete this topic RSV Immunizations Under 20 Months Aged Out No longer eligible based on patient's age to complete this topic Insurance [facility] Care Teams Coldfusion Relationship Specialty Start Date End Date Vikash Ibarra MD [address] [place] [address] [address] [place] [address] PCP - General FAMILY PRACTICE 02/08/21
--- OUTSIDE RECORDS SUMMARY | 2024-06-29 11:34 | XMS_ITS | Data Portability ---
Author Organization [facility] Address [address] [place] [place] [address] Care Team Providers Care Adjunct History Instructor Name Role Phone ROSE LAROSE Primary Care Provider [phone] Assessment Encounter Date Assessment Date Assessment LastModified by Organization Details LastModified Time 05/05/2024 05/05/2024 Patient is _24__weeks . Discussed plan. Not available 05/05/2024 10:41:42 06/10/2024 06/10/2024 Patient is _29__weeks . Discussed plan. [email or web address] Not available 06/10/2024 11:29:36 06/23/2024 06/23/2024 Patient is _31__weeks . Discussed plan. [email or web address] Not available 06/23/2024 11:24:48 Plan of Treatment Reminders Order Date Submit Date Provider Last Modified By Organization Details Last Modified Time Details Appointments U/S OB GROWTH 2024 08:30A M ULTRASOUND Not available Not available Not available OB ROUTINE 2024 09:15A M Katherin Hammond CNM Not available Not available Not available Lab None recorde d. Referral None recorde d. Procedures None recorde d. Surgeries None recorde d. Imaging US, obstetr ic, follow- up 2023 024 [email or web address] [place], [address], [place], [address], 05/05/2024 14:19:44 US, obstetr ic, limited 2024 025 [email or web address] [place], [address], [address], [place], [address], 06/28/2024 20:45:50 Medication Orders None recorde d. Patient TargetsNo targets recorded. Patient InstructionsNo instructions recorded. Reason for Referral None Reported. Results Created Date Observation Date Name Description Value Unit Range Abnormal Flag Note LastModifiedBy Organization Detail LastModifiedTime 06/10/1906/10/2024 HEMAT OCRIT (HCT) HCT 37.0 % (based on docume nted legal sex) 34.0-4 5.0 Not Available [facility] (Lab) [address] [facility], [place], [address], 06/11/2024 13:21:22 06/10/19 25 06/10/2024 HEMOG LOBIN (HGB) HGB 12.4 g/dL (based on docume nted legal sex) 11.6-1 5.4 Not Available [facility] (Lab) [address] [facility], [place], [address], 06/11/2024 13:21:23 06/10/19 25 06/10/2024 HIV 1/2 ANTIG EN/AN TIBOD Y, REFLE X CONFI RMATI ON HIV antigen/anti body Nonrea ctive nonrea ctive HIV-1 antig en and HIV-1 /HIV- 2 antib odies were not detec robby. No labor atory evide nce of HIV infec tion. Not Available [facility] (Lab) [address], [place], [address], 06/11/2024 13:21:23 06/10/19 25 06/10/2024 GTT - GESTA SARANYA L SCREE N, ACOG OB glucose, 1 hour screen 151 mg/dL 70-135 high Not Available [facility] (Lab) [address], [place], [address], 06/11/2024 13:21:23 06/10/19 25 06/10/2024 RPR SCREE N, REFLE X TITER /CONF IRMAT ION RPR screen Nonrea ctive nonrea ctive Not Available [facility] (Lab) [address] [facility], [place], [address], 06/11/2024 13:21:24 06/17/19 25 06/17/2024 GTT - GESTA SARANYA L, 3 HOUR, ACOG glucose, fasting acog 77 mg/dL 70-94 Not Available [facility] (Lab) [address] [place], [address], 06/18/2024 04:48:26 06/17/19 25 06/17/2024 GTT - GESTA SARANYA L, 3 HOUR, ACOG glucose, 1 hour acog 155 mg/dL 70-179 Not Available [facility] (Lab) [address] [place], [address], 06/18/2024 04:48:26 06/17/19 25 06/17/2024 GTT - GESTA SARANYA L, 3 HOUR, ACOG glucose, 2 hour acog 140 mg/dL 70-154 Not Available [facility] (Lab) [address] [facility], [place], [address], 06/18/2024 04:48:26 06/17/19 25 06/17/2024 GTT - GESTA SARANYA L, 3 HOUR, ACOG glucose, 3 hour acog 138 mg/dL 70-139 Not Available [facility] (Lab) [address] [place], [address], 06/18/2024 04:48:26 04/07/20 24 04/07/2024 US, obste tric, 2nd or 3rd trime ster No observ ation record ed. [email or web address] [place] [address], [place], [address], 04/07/2024 18:21:04 04/07/20 24 04/07/2024 US, obste tric, 2nd or 3rd trime ster No observ ation record ed. [email or web address] [address], [place], [address], 04/07/2024 23:13:22 05/05/20 24 05/05/2024 US, obste tric, follo w-up No observ ation record ed. [email or web address] [place] [address], [place], [address], 05/05/2024 13:09:30 05/05/20 24 05/05/2024 US, obste tric, follo w-up No observ ation record ed. [email or web address] [address], [place], [address], 05/05/2024 22:53:04 06/28/19 25 06/28/2024 US, obste tric, limit ed No observ ation record ed. [email or web address] [place] [address], [place], [address], 06/28/2024 16:26:57 06/28/19 25 06/28/2024 US, obste tric, limit ed No observ ation record ed. [email or web address] [address], [place], [address], 06/28/2024 21:45:19 Result Notes None recorded. Problems Name Problem SNOMED Code Status Onset Date Resolution Date Notes Provider Name and Address Organization Details Recorded Time Mixed anxiety and depressi ve disorder 970680566 Active no current meds Katherin Hammond CNM [address], [place], [address], [facility] 18:13:46 Attentio n deficit hyperact ivity disorder 349607794 Active no current meds Katherin Hammond CNM [address], [place], [address], [facility] 4 18:13:41 Human papillom a virus infectio n 083982971 Active Katherin Hammond CNM [address], [place], [address], [facility] 4 18:11:59 Herpesvi jhon infectio n 13720805 Active 2023 Sherrie Blankenship null, [facility] 4 17:47:43 Abnormal cervical Papanico laou smear 696163554 Active 2023 8 ascus hpv Sherrie Blankenship null, [facility] 4 17:48:39 Pregnanc y 26247039 Active 2023 Sherrie willard, [facility] 4 17:18:41 Herpes simplex 50668296 Active on blood test, plan 36 week valtrex, as a precauti on Katherin Hammond CNM [address], [place], [address], [facility] 4 18:14:14 Mixed anxiety and depressi ve disorder 481710524 Active no current meds Katherin Hammond CNM [address], [place], [address], [facility] 4 18:13:46 Attentio n deficit hyperact ivity disorder 790011274 Active no current meds Katherin Hammond CNM [address], [place], [address], [facility] 4 18:13:41 Hemorrho idectomy Active 2021 with colonosc opy Katherin Hammond CNM [address], [place], [address], [facility] 4 18:13:32 Placenta previa marginal is 04246764 Active resolved Katherin Hammond CNM [address], [place], [address], [facility] 4 10:41:39 Blood glucose outside referenc e range 802763491 Active decided on 3hr gtt sced 06/17 Re willard, [facility] 5 14:32:15 Blood glucose outside referenc e range 903068223 Active decided on 3hr gtt sced 06/17 Re willard, [facility] 5 14:32:15 Speciali zed medical examinat ion Completed 201305/23/2020 Other specifie d chlamydi al diseases ;Practic e ID: 0001 Jenn Solano MD [address], [place], [address], [facility] 0 16:44:24 Venereal disease screenin g Completed 201305/23/2020 Screenin g examinat ion for venereal disease; Practice ID: 0001 Jenn Solano MD [address], [place], [address], [facility] 0 16:44:40 Amenorrh ea 18605495 Completed 201405/23/2020 AMENORRH EA;Pract ice ID: 0001 Jenn Solano MD [address], [place], [address], [facility] 0 16:43:25 Pregnanc y test negative 684114575 Completed 201405/23/2020 Negative Pregnanc y Test;Pra ctice ID: 0001 Jenn Solano MD [address], [place], [address], [facility] 0 16:44:08 Female genital organ symptoms 092617650 Completed 201405/23/2020 Pelvic Pain;Pra ctice ID: 0001 Jenn Solano MD [address], [place], [address], [facility] 0 16:43:42 Leukorrh ea 101269303 Completed 201405/23/2020 Leukorrh ea, not specifie d as infectiv e;Practi ce ID: 0001 Jenn Solano MD [address], [place], [address], [facility] 0 16:44:00 Fever 925765977 Completed 201405/23/2020 FEVER NOS;Prac dorothy ID: [address] MD [address], [place], [address], [facility] 0 16:43:49 Nausea 998613303 Completed 201405/23/2020 Nausea alone;Pr actice ID: [address] MD [address], [place], [address], [facility] 0 16:44:03 Adult health examinat ion Completed 201405/23/2020 Routine general medical examinat ion at a health care facility ;Practic e ID: 0001 MD [address], [place], [address], [facility] 0 16:43:27 Sexually transmit robby infectio us disease 5766208 Completed 201402/05/2021 Venereal disease, unspecif ied;Prac dorothy ID: 0001 Galilea willard, [facility] 1 10:29:40 Vaginola bial hernia Completed 201405/23/2020 Other specifie d noninfla mmatory disorder s of vagina;P ractice ID: 0001 Jenn Solano MD [address], [place], [address], [facility] 0 16:44:36 Pelvic and perineal pain 109957427 Completed 201405/23/2020 Pelvic and perineal pain;Pra ctice ID: 0001 Jenn Solano MD [address], [place], [address], [facility] 0 16:44:06 Speciali zed medical examinat ion Completed 201305/23/2020 ROUTINE REHABILITATION LIAISON EXAMINAT ION;Cosmo rded Elsewher e: No Locat ion: [facility] S ource: EHR [employer] Fscm Developer kwame: N Practi ce ID: 0001 Scott lable Time: 01:30:00 PM Jenn Solano MD [address], [place], [address], [facility] 0 16:44:17 Educatio n Completed 201805/23/2020 Encounte r for other general counseli ng and advice on contrace ption;Re corded Elsewher e: No Locat ion: [facility] S ource: [employer] Developer kwame: N Practi ce ID: 0001 Scott lable Time: 11:00:00 AM Jenn Solano MD [address], [place], [address], [facility] 0 16:43:35 Bleeding 425939093 Completed 201905/23/2020 Abnormal uterine bleeding ;Recorde d Elsewher e: No Locat ion: [facility] S ource: [employer] Developer kwame: N Practi ce ID: 0001 Scott lable Time: 10:15:00 AM Jenn Solano MD [address], [place], [address], [facility] 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 0 16:44:21 Increase d frequenc y of urinatio n 537423157 Completed 201705/23/2020 Frequenc y of micturit ion;Cosmo rded Elsewher e: No Locat ion: [facility] S ource: EHR [employer] F[employer] Developer kwame: N Lyndsayti ce ID: 0001 Scott lable Time: 08:30:00 AM Jenn Solano MD [address], [place], [address], [facility] 0 16:43:57 Disorder of breast 68779281 Completed 201605/23/2020 Disorder of breast, unspecif ied;Cosmo rded Elsewher e: No Locat ion: [facility] S ource: EHR [employer] Developer kwame: N Lyndsayti ce ID: 0001 Scott lable Time: 09:30:00 AM Jenn Solano MD [address], [place], [address], [facility] 0 16:43:32 Finding of regulari ty of menstrua l cycle Completed 201905/23/2020 Irregula r menstrua tion, unspecif ied;Cosmo rded Elsewher e: No Locat ion: [facility] S ource: EHR [employer] Developer kwame: N Lyndsayti ce ID: 0001 Scott lable Time: 09:30:00 AM MD [address], [place], [address], [facility] [address] 16:43:[address] Concept Completed 201405/23/2020 Encntr for general adult medical exam w/o abnormal findings ;Recorde d Elsewher e: No Locat ion: [facility] S ource: EHR [employer] F[employer] Developer kwame: Alexandrea Herrmann ce ID: 0001 Scott lable Time: 09:45:00 AM Jenn Solano MD [address], [place], [address], [facility] 0 16:44:12 Urinary tract infectio us disease 58038612 Completed 201705/23/2020 Urinary tract infectio n, site not specifie d;Record ed Elsewher e: No Locat ion: [facility] S ource: EHR [employer] Developer kwame: Alexandrea Herrmann ce ID: 0001 Scott lable Time: 08:30:00 AM Jenn Solano MD [address], [place], [address], [facility] 0 16:44:30 Atypical squamous cells of undeterm ined signific ance on cervical Papanico laou smear 496311100 Completed 201712/17/2021 [facility] 2 11:49:39 Acute vaginiti s 22666362 Completed 201705/23/2020 Acute vulvovag initis;R ecorded Elsewher e: No Locat ion: [facility] S ource: EHR [employer] Developer kwame: Alexandrea Herrmann ce ID: 0001 Scott lable Time: 08:30:00 AM Jenn Solano MD [address], [place], [address], [facility] 0 16:43:22 Evaluati on finding Completed 201705/23/2020 Hematuri a, unspecif ied;Cosmo rded Elsewher e: No Locat ion: [facility] S ource: EHR [employer] F[employer] Developer kwame: Alexandrea Herrmann ce ID: 0001 Scott lable Time: 08:30:00 AM Jenn Solano MD [address] [place], [address], [place] [facility] 0 16:43:38 Herpes simplex 64426299 Completed 201512/17/2021 Irma Lanier [facility] 2 11:49:39 Atypical squamous cells on cervical Papanico laou smear cannot exclude high grade squamous intraepi thelial lesion 530908897 Completed 201802/05/2021 Galilea Power [facility] 1 10:41:03 Abnormal uterine bleeding 0233461868 9100 Completed 201802/05/2021 Other specifie d abnormal uterine and vaginal bleeding ;Practic e ID: 0001 Galilea [employer] [facility] 1 10:29:37 Problem Notes None recorded. Procedures Surgical History Date Name Laterality Status Provider Name and Address Organization Details Recorded Time 024 Date of Last Pap Smear completed Sherrie Blankenship [facility] 02/18/2024 17:17:49 022 thumb surgery completed Sherriemat Blankenship [facility] 01/15/2024 12:37:08 022 hemorrhoidectomy completed Sherriemat Blankenship [facility] 01/15/2024 12:36:55 021 Date of Last Colonoscopy completed Irma Lanier [facility] 12/17/2021 12:03:00 021 Colonoscopy completed Sherriemat Blankenship [facility] 01/15/2024 12:36:43 021 procedure on wrist completed Sherriemat Blankenship [facility] 01/15/2024 12:37:03 Imaging Results Imaging Date Name Status LastModified by Organiz ation Details LastModified Time 04/07/2024 US, obstetric, 2nd or 3rd trimester completed [email or web address] [place] [address], [place], [address], 04/07/2024 18:21:04 04/07/2024 US, obstetric, 2nd or 3rd trimester completed [email or web address] [address], [place], [address], 04/07/2024 23:13:22 05/05/2024 [facility] [address], [place], [address], 05/05/2024 13:09:30 05/05/2024 US, obstetric, follow-up completed [email or web address], [place], [address], 05/05/2024 22:53:04 06/28/2024 US, obstetric, limited completed [email or web address] [place] [address], [place], [address], 06/28/2024 16:26:57 06/28/2024 US, obstetric, limited completed [email or web address] [address], [place], [address], 06/28/2024 21:45:19 Procedure Notes None recorded. Medical Equipment None Reported. Allergies Allergen ID Allergen Name Allergen Category Reaction Reaction Severity Criticality Documentation Date Start Date Code Code System Note Provider Name and Address Organization Details Recorded Time 573 cefdinir medicatio n Not available Not available Not available 10/06/2019 31193 RxNorm Gayatri willard [facility] 0 11:50:55 574 Product containin g cephalosp lidia (product) medicatio n Not available Not available Not available 10/06/2019 34613 9009 SNOMED Gayatri willard [facility] 0 11:51:08 575 citalopra m medicatio n Not available Not available Not available 10/06/2019 2556 RxNorm cital opram hydro bromi de Gayatri Chong [facility] 0 11:51:56 576 Product containin g penicilli n and antibioti c (product) medicatio n Not available Not available Not available 10/06/2019 40175 05 SNOMED Gayatri Chong [facility] 0 11:52:07 Medications Name Sig Start Date Stop Date Status Note LastModified by Organization Details LastModified Time celecoxib 200 mg capsule TAKE 1 CAPSULE BY MOUTH DAILY 12/17 completed Not Available Not Available Not Available cyclobenz aprine 10 mg tablet TAKE 1 TABLET BY MOUTH THREE TIMES DAILY NEEDED FOR MUSCLE SPASM 01/13 completed Not Available Not Available Not Available prednison e 10 mg tablet 03/18 completed Not Available Not Available Not Available clindamyc in HCl 300 mg capsule TAKE 1 CAPSULE BY MOUTH THREE TIMES DAILY UNTIL GONE 02/05 completed Not Available Not Available Not Available trazodone 50 mg tablet TAKE 1 TABLET BY MOUTH AT BEDTIME FOR INSOMNIA 06/04 completed Not Available Not Available Not Available azithromy cricket 250 mg tablet 06/10 completed Not Available Not Available Not Available tizanidin e 4 mg tablet TAKE 1 TABLET BY MOUTH THREE TIMES DAILY NEEDED FOR MUSCLE SPASMS 01/13 completed Not Available Not Available Not Available Loestrin Fe 06/14 (28-Day) 1 mg-20 mcg (21)/75 mg (7) tablet take 1 tablet by oral route every day 06/15 completed Prescrib ed Elsewher e: No Locat ion: [facility] M odify By: [email or web address] ich Enco unter DateTime : 02/17/20 10:30:00 AM Not Available Not Available Not Available hydrocodo ne 5 mg-acetam inophen 325 mg tablet TAKE 1 TABLET BY MOUTH EVERY 6 HOURS NEEDED FOR PAIN 07/24 completed Not Available Not Available Not Available fluconazo le 200 mg tablet take 1 tablet by oral route on days 1, 4 & 7. 10/26 completed Not Available Not Available Not Available metronida zole 0.75 % (37.5 mg/5 gram) vaginal gel INSERT ONE APPLICAT ORFUL VAGINALL Y AT BEDTIME FOR 5 DAYS 12/17 completed Not Available Not Available Not Available prednison e 20 mg tablet TAKE 1 TABLET BY MOUTH EVERY MORNING 06/04 completed Not Available Not Available Not Available Pyridium 200 mg tablet Take 1 tablet 3 times a day by oral route for 7 days. 03/18 completed Not Available Not Available Not Available Diflucan 150 mg tablet Take 1 tablet by oral route. 06/10 completed Not Available Not Available Not Available Flonase 50 mcg/actua tion nasal spray,bailey pension spray 1 spray by intranas al route every day in each nostril 01/12 completed Prescrib ed Elsewher e: Yes [facility] By: [email or web address] trick En counter DateTime : 06/30/19 15 02:30:00 PM Not Available Not Available Not Available metronida zole 500 mg tablet 06/10 completed Not Available Not Available Not Available valacyclo vir 500 mg tablet TAKE 1 TABLET BY MOUTH TWICE DAILY FOR 5 DAYS 02/05 completed Not Available Not Available Not Available sulfameth oxazole 800 mg-trimet hoprim 160 mg tablet TAKE 1 TABLET BY MOUTH EVERY 12 HOURS 12/17 completed Not Available Not Available Not Available tramadol 50 mg tablet TK 1 T PO Q 6 H PRF PAIN 05/23 completed Not Available Not Available Not Available Macrobid 100 mg capsule Take 1 capsule every 12 hours by oral route. 06/10 completed Not Available Not Available Not Available Proctozon e-HC 2.5 % topical cream perineal applicato r APPLY RECTALLY TWICE DAILY 12/17 completed Not Available Not Available Not Available pantopraz ole 40 mg tablet,de layed release TAKE 1 TABLET BY MOUTH EVERY MORNING 06/04 completed Not Available Not Available Not Available Cipro 500 mg tablet take 1 tablet by oral route every 12 hours 01/12 completed Prescrib ed Elsewher e: No [facility] By: [email or web address] trick En counter DateTime : 12/20/19 15 10:37:18 AM Not Available Not Available Not Available Diflucan 50 mg tablet take 2 tablet by oral route every day 01/12 completed Prescrib ed Elsewher e: Yes Loca tion: [facility] odify By: [email or web address] torie En counter DateTime : 12/15/19 15 09:00:00 AM Not Available Not Available Not Available Loestrin 06/14 (21) 1 mg-20 mcg tablet take 1 tablet by oral route every day 11/25 completed Prescrib ed Elsewher e: No Locat ion: [facility] odify By: [email or web address] koch DateTime : 11/04/19 03:55:59 PM Not Available Not Available Not Available Valtrex 1 gram tablet take 1 tablet by oral route every 24 hours 05/23 completed Prescrib ed Elsewher e: No Locat ion: [facility] odify By: lissette Montaño nter DateTime : 02/17/20 19 10:30:00 AM Not Available Not Available Not Available mupirocin 2 % topical ointment APPLY TOPICALL Y TO THE AFFECTED AREA TWICE DAILY UNTIL GONE 07/24 completed Not Available Not Available Not Available ergocalci ferol (vitamin D2) 1,250 mcg (50,000 unit) capsule TAKE 1 CAPSULE BY MOUTH EVERY WEEK active Not Available Not Available No t Available albuterol sulfate HFA 90 mcg/actua tion aerosol inhaler INHALE 2 PUFFS BY MOUTH EVERY 4 HOURS NEEDED FOR SHORTNES S OF BREATH 06/04 completed Not Available Not Available Not Available Terazol 7 0.4 % vaginal cream insert 1 applicat orful by vaginal route every day for 7 days at bedtime 11/03 completed Prescrib ed Elsewher e: No Locat ion: [facility] odify By: fabiola stahluntbrady DateTime : 10/29/19 18 03:01:34 PM Not Available Not Available Not Available doxycycli ne hyclate 100 mg tablet TAKE 1 TABLET BY MOUTH EVERY 12 HOURS 07/24 completed Not Available Not Available Not Available buspirone 15 mg tablet TAKE 1 TABLET BY MOUTH THREE TIMES DAILY 07/23 completed Not Available Not Available Not Available Bactrim 400 mg-80 mg tablet take 2 tablet by oral route every 12 hours 01/12 completed Prescrib ed Elsewher e: Yes Loca tion: [employer] odify By: [email or web address] trick En counter DateTime : 12/17/19 15 02:35:38 PM Not Available Not Available Not Available Zithromax 500 mg tablet Take 2 pills all at once by oral route 01/12 completed Prescrib ed Elsewher e: No Locat ion: [facility] odify By: [email or web address] trick En counter DateTime : 12/17/19 15 02:35:38 PM Not Available Not Available Not Available escitalop kory 10 mg tablet TK 1 T PO QD 05/23 completed Not Available Not Available Not Available atomoxeti ne 40 mg capsule take 1 capsule by oral route every day in the morning 03/18 completed Not Available Not Available Not Available atomoxeti ne 60 mg capsule TAKE 1 CAPSULE BY MOUTH EVERY MORNING 01/13 completed Not Available Not Available Not Available bupropion HCl XL 150 mg 24 hr tablet, extended release TAKE 1 TABLET BY MOUTH EVERY MORNING 06/04 completed Not Available Not Available Not Available methylphe nidate LA 20 mg biphasic 50-50 capsule,e xtended release 03/18 completed Not Available Not Available Not Available Azo 95 mg tablet 01/12 completed Prescrib ed Elsewher e: Yes [facility] odify By: [email or web address] trick En counter DateTime : 12/15/19 15 09:00:00 AM Not Available Not Available Not Available Lexapro 5 mg tablet take 1 tablet by oral route every day 05/23 completed Prescrib ed Elsewher e: Yes Loca tion: [facility] odify By: [email or web address] z Encoun ter DateTime : 02/17/20 19 10:30:00 AM Not Available Not Available Not Available Ritalin LA 10 mg capsule,e xtended release take 1 capsule by oral route every day in the morning 05/23 completed Prescrib ed Elsewher e: Yes Loca tion: [facility] M odify By: padmaja Teixeira ncounter DateTime : 06/01/19 03:30:00 PM Not Available Not Available Not Available Flovent HFA 110 mcg/actua tion aerosol inhaler 06/04 completed Not Available Not Available Not Available trazodone 05/23 completed Not Available Not Available Not Available Valtrex 05/23 completed Not Available Not Available Not Available Lexapro 03/18 completed Not Available Not Available Not Available atomoxeti ne 80 mg capsule TAKE 1 CAPSULE BY MOUTH EVERY MORNING 01/13 completed Not Available Not Available Not Available atomoxeti ne 100 mg capsule TAKE 1 CAPSULE BY MOUTH EVERY MORNING. 07/23 completed Not Available Not Available Not Available Pulmicort Flexhaler 90 mcg/actua tion breath activated INHALE 1 PUFF BY MOUTH EVERY 12 HOURS. RINSE MOUTH AND SPIT AFTER EACH USE 06/04 completed Not Available Not Available Not Available lidocaine 2 % mucosal jelly in applicato r apply 1 by Topical route PRN pain 02/23 completed Prescrib ed Elsewher e: No Locat ion: [facility] odify By: [email or web address] aranda Encou nter DateTime : 02/17/20 10:30:00 AM Not Available Not Available Not Available B12 5,000 mcg-100 mcg sublingua l lozenge 05/23 completed Prescrib ed Elsewher e: Yes Loca tion: [facility] odify By: padmaja stahlunter DateTime : 06/01/19 03:30:00 PM Not Available Not Available Not Available ProChambe r USE DIRECTED 07/24 completed Not Available Not Available Not Available Gynazole- 1 2 % vaginal cream insert 1 applicat orful by vaginal route once 06/15 completed Prescrib ed Elsewher e: No Locat ion: [facility] odify By: david ba Enco unter DateTime : 02/19/20 19 01:26:20 PM Not Available Not Available Not Available Nasacort 55 mcg nasal spray aerosol 05/23 completed Prescrib ed Elsewher e: Yes Loca tion: [facility] odify By: padmaja Puneet jesus DateTime : 06/01/19 03:30:00 PM Not Available Not Available Not Available Isibloom 0.15 mg-0.03 mg tablet take 1 tablet by oral route every day 03/18 completed Not Available Not Available Not Available OneTouch Delica Plus Lancet 33 gauge 06/23 completed Not Available Not Available Not Available ID NOW COVID-19 Test Kit TEST DIRECTED TODAY 07/24 completed Not Available Not Available Not Available Afluria Qd (36 mos up)(PF)60 mcg (15 mcg x4)/0.5 mL IM syringe 03/18 completed Not Available Not Available Not Available Vitals Date Recorded Body weight Body mass index (BMI) Body height Systolic blood pressure Diastolic blood pressure Provider Name and Address Organization Details Last Updated DateTime 05/05/2024 56653.81 134 g 29.8 kg/m2 166.37 cm 142 mm[Hg] 97 mm[Hg] Sherrie Blankenship [facility] 4 10:37:13 Date Recorded Body height Body mass index (BMI) Body weight Systolic blood pressure Diastolic blood pressure Provider Name and Address Organization Details Last Updated DateTime 06/10/2024 166.37 cm 31.6 kg/m2 07117.33 g 133 mm[Hg] 87 mm[Hg] Shantell Bateman [facility] 5 10:41:35 Date Recorded Body weight Body mass index (BMI) Body height Systolic blood pressure Diastolic blood pressure Provider Name and Address Organization Details Last Updated DateTime 06/23/2024 40470.10 452 g 32.1 kg/m2 166.37 cm 139 mm[Hg] 87 mm[Hg] Sherrie Blankenship [facility] 5 11:21:27 Social History Question Answer Notes LastModified by Organizat ion Details LastModified Time Tobacco Smoking Status Never Smoker [facility] 06/04/2023 09:52:40 Do You Have An Advance Directive? No [email or web address] Information n ot available 02/05/2021 What Is Your Level Of Alcohol Consumption? None [email or web address] Information not available 01/14/2024 If You Are , What Was Your Level Of Alcohol Consumption Prior To ? Occasional [email or web address] Information not available 01/14/2024 Are You Blind Or Do You Have Difficulty Seeing? No [email or web address] Information n ot available 02/05/2021 What Is Your Level Of Caffeine Consumption? Moderate Information not available 12/17/2021 How Much Tobacco Do You Chew? None [email or web address] Information not available 02/05/2021 In The 14 Days Before Symptom Onset, Have You Had Close Contact With A Laboratory-confirm ed COVID-19 While That Case Was Ill? No [email or web address] Information n ot available 02/05/2021 In The 14 Days Before Symptom Onset, Have You Had Close Contact With A Person Who Is Under Investigation For COVID-19 While That Person Was Ill? No [email or web address] Information not available 02/05/2021 Have You Been To An Area Known To Be High Risk For COVID-19? No [email or web address] Information not available 02/05/2021 Are You Deaf Or Do You Have Serious Difficulty Hearing? No [email or web address] Information not available 02/05/2021 What Type Of Diet Are You Following? REGULAR [email or web address] Information n ot available 02/05/2021 What Is The Highest Grade Or Level Of School You Have Completed Or The Highest Degree You Have Received? [id number] [email or web address] Information not available 02/05/2021 Are There Any Guns Present In Your Home? No [email or web address] Information not available 02/05/2021 Do You Use Protection During Sex? No Information not available 12/17/2021 Do You Use Your Seat Belt Or Car Seat Routinely? Yes [email or web address] Information not available 02/05/2021 Are You Sexually Active? Yes [email or web address] Information not available 06/10/2024 Do You Have Smoke And Carbon Monoxide Detectors In Your Home? No [email or web address] Information not available 02/05/2021 How Much Tobacco Do You Smoke? No [email or web address] Information not available 02/05/2021 Do You Feel Stressed (tense, Restless, Nervous, Or Anxious, Or Unable To Sleep At Night)? [id number] [email or web address] Information not available 02/05/2021 Do You Use Any Illicit Or Recreational Drugs? No [email or web address] Information not available 02/05/2021 Do You Use Sunscreen Routinely? No [email or web address] Information not available 02/05/2021 Have You Used IV Drugs? No [email or web address] Information not available 02/05/2021 Sex: Unknown Functional Status Question Answer Note LastModified by Organizat ion Details LastModified Time Do you have difficulty walking or climbing stairs? No [email or web address] Information not available 06/04/2023 Are you able to walk? [email or web address] Information not available 02/05/2021 Are you able to care for yourself? Yes [email or web address] Information not available 06/04/2023 Do you have difficulty dressing or bathing? No [email or web address] Information not available 06/04/2023 What is your exercise level? Occasional [email or web address] Information not available 02/18/2024 Mental Status None recorded. Family History Relationship Description Onset Age of this Age Resolved Age Notes LastModified by Organization Details LastModified Time Mother Asthma [email or web address] Not available 12:02:56 Mother Diabetes mellitus [email or web address] Not available 2019 11:52:51 Mother Hypertensive disorder [email or web address] Not available 2019 11:53:19 Mother Female infertility Not available 07/2024 11:48:47 Mother Cyst of ovary [email or web address] Not available 2024 11:48:47 Mother Polycystic ovary syndrome [email or web address] Not available 2024 11:48:47 Mother Anxiety disorder phewitt Not available 2020 10:34:10 Mother Mental disorder phewitt Not available 2020 10:34:10 Mother Depressive disorder [email or web address] Not available 2021 12:02:56 Mother Heart disease [email or web address] Not available 2021 12:02:56 Mother Myocardial infarction [email or web address] Not available 12/25 12:37:37 Maternal Grandmother Hypertensive disorder jgumber Not available 2019 11:53:19 Father Hypertensive disorder jgumber Not available 2019 11:53:19 Maternal Grandfather Family history of blood coagulation disorder [email or web address] Not available 2024 11:48:47 Paternal Grandmother Depressive disorder [email or web address] Not available 2021 12:02:57 Paternal Grandmother Mental disorder phewitt Not available 2020 10:34:10 Unspecified Relation Asthma [email or web address] Not available 12:02:57 Medical History Condition Response Allergies (Food, seasonal, environmental ) Y Other N Breast Cancer N Drug/Latex Allergies/Reactions Y Blood Transfusion N Dermatologic Disorders N Lung Disease N Defects or Inherited Disease N Breast Problem N Gestational Diabetes N Hematologic disorders N Anesthesia Complications N History of STI Y Deep Vein Thrombosis N Polycystic ovary syndrome N Anxiety Disorder Y Autoimmune disease N Arthritis N Infertility N Polyps N Acid Reflux (GERD) Y History of abnormal pap Y Cancer N Stroke N Varicosities N Neurologic/Epilepsy Y Endometriosis N High Cholesterol N Headaches N Fibromyalgia N Kidney Disease N Heart Problems N Kidney or Bladder Problems N Thyroid Problems N GI Problems Y Eating Disorder N Anemia N Art (IVF or FET) N Psychiatric Illness Y Ovarian Cancer N Diabetes N Pulmonary (TB, Asthma) Y Hepatitis/Liver Disease N No Past Medical History N Eczema N Urinary Tract Infection N Abuse/Domestic Violence N Asthma Y Trauma/Violence N Depression/ depression Y Heart Disease N Pre-Eclampsia N Hypertension N Osteoporosis N Thrombophilias N Gynecological History Statement/Question Response Date of Last Mammogram Flow Moderate Date of LMP 11/18/2023 N Was last menstrual period normal Y STIs/STDs Yes Date of Last Colonoscopy 02/12/2021 Desired Control Method None Abnormal Pap Y On BCP's at Conception? N HPV Vaccine N Duration of Flow (days) 5 Current Control Method Are cycles usually normal N Frequency of Cycle (Q days) 35 Sexually Active? Y Menses Monthly Y Date of DEXA bone scan Age of first menstrual cycle 10 Date of Last Pap Smear 01/14/2024 Sexual Problems? N LMP Approximate N Obstetrics History GPAL:G 1 P 0 0 0 0 Type Value Living 0 Total 1 Past Encounters Encounter ID Performer Location Encounter Start Date Encounter Closed Date Diagnosis/Indication Diagnosis SNOMED-CT Code Diagnosis ICD10 Code Diagnosis Note [id number] Henny Jake [place] [address] [address] 10/06/2019 11:38:39 10/07/2019 10:48:16 Acute urinary tract infection 393848453 N39.0 Increase water and decrease caffeine. WIll start macrobid and send out diflucan since she is prone to yeast infections . Pt is also agreeable to have STD screening from urine. [id number] Mirian Chandler [place] [address],[place] [address] 10/27/2019 10:28:54 10/27/2019 11:24:47 Dysuria 53999022 R30.9 R35.0 Patient is here today for UTI sx's that include urinary frequency, urgency, dysuria very prominent. Neg vag infection sx's. Neg pain. Neg CVA. Neg N/V/F/D Treated for UTI presumptiv e Macrobid & pyridum Time spent in visit is a total of 15 mins with at least 50% of visit consisting of counseling and review of plan of care. Urinary tr act infectious disease 10069278 N39.0 [id number] Mirian Chandler [place] [address],[place] [address] 03/13/2020 10:23:48 03/14/2020 13:16:27 Urinary tract infectious disease 89072093 N39.0 Urine dip sent for culture/UA . Will treat based on sx's & await return of results. [id number] Kris Huynh MD [place] [address],[place] [address] 03/18/2020 10:13:08 03/18/2020 13:40:22 Sexually transmitted infectious disease 4045761 A64 this patient is a 25-year-ol d female presents for STD testing. She has no symptoms. She has no recent exposures that she is concerned of that she can identify. She is just interested in having her status known to her. She is examined. The distal vagina and vulva appear normal. Swab was taken. She will look for normal Zoloft result on the portal.She willbe contacted for abnormal results. [id number] Kris Huynh MD [place] [address],[place] [address] 04/17/2020 15:02:49 04/17/2020 15:55:17 Infection by Trichomonas 32463420 A59.9 this patient is a 25-year-ol d female presents for test of cure for Trichomona s. The vulva and distal vagina were examined and a swab was taken. It all appeared normal. We will follow up on those results. She has not had exposure to the partner she previously had. [id number] Jenn Solano MD [place] [address],[place] [address] 05/23/2020 16:15:44 05/23/2020 16:54:00 Urgent desire to urinate 94825149 R39.15 Increased frequency of urination 556915118 R35.0 Venereal d isease screening 107751321 Z11.3 Contracept ion care management 074075153 Z30.9 [id number] Katherin Hammond [facility] [address],[place] [address] 08/02/2020 09:18:58 08/02/2020 10:01:57 Urinary tract infectious disease 71276390 N39.0 [id number] Henny Jake [place] [address],[place] [address] 02/05/2021 10:33:03 02/05/2021 12:08:03 Vaginitis 44174342 N76.0 Discussed use of mild soap like dove or ivory, cotton underwear w/out dye, hypoallerg enic detergent, wipe from front to back, avoid tub baths, keep perineum clean and dry, d/c use of baby wipes. Encouraged daily intake of yogurt or womens health probiotic. Internal and external affirm collected along with STD screen. [id number] [facility]ian [facility] [address],[place] [address] 12/17/2021 11:40:46 12/17/2021 12:36:48 Gynecologic examination 85731159 Z01.419 Take Calcium with Vitamin D 1200mg daily if not receiving in daily diet. It is strongly advised to have an annual flu shot and up can obtain at most pharmacies . If you have not had a TDap shot in the last 10 years you should obtain one as well. Discussed with patient & provided with informatio n regarding Gardisil vaccine to prevent the 4 strains for HPV that cause cervical cancer if under age 26. Encourage safe sexual practices, to use condoms and limit partners if not already in a monogamous relationsh ip. Do monthly self breast exams. Have mammogram yearly or every other year depending on family history. BRCA testing is now available for patients with strong genetic history of female cancer. If interested contact the office. Engage in daily exercise of low impact aerobic exercise 45-60 minutes 4-5 times weekly. Avoid tobacco and illicit drugs as well as using moderation with alcohol intake less than 1-2 8 oz beverages daily. This lifestyle behavior pattern will lead to less health conditions and longer life span. If BMI greater than 25 weight watchers or dietary consult advised. Patient received above instructio ns, and questions have been answered. If you have any questions please call or respond to this email. Patient was made aware of the patient portal and may obtain a paper copy of today's plan if desired. Pap sentSTD Screen declinedGe netic Screen discussedC olon Screen naDexa Screen naRoutine Labs orderedmam mo na Adult heal th examination 437974493 Z00.00 Will update routine labs to ensure body systems are in check Reproducti ve care management 965658862 Z31.9 Will evaluate AMH to gain an idea of fertilityD oesn't use BC & has never gotten . [id number] [facility] [address] [address] 07/24/2022 11:13:17 07/24/2022 12:33:26 Trying to conceive 199663379 Z31.9 [id number] ALCON [facility] [address] [address] 06/04/2023 09:50:45 06/04/2023 10:35:27 Irregular periods 20416535 N92.6 Today we reviewed her menstrual applicatio n tracker.Co unseled on menstrual cycle duration, frequency, flow, onset/reso lution/ovu lation.Her menses are very normal and staying within the 23-36 day menstrual cycle ranges.She very reassured by this informatio n and has no other concerns today. Time spent in visit is a total of 15 mins with at least 50% of visit consisting of counseling and review of plan of care. [id number] [facility] [address],[place] [address] 01/01/2024 12:14:39 01/01/2024 12:40:58 Uncertain viability of 009214380 O36.80X0 Z3A.01 [id number] Sofia Wakefield [place] [address],[place] [address] 01/14/2024 16:45:29 01/14/2024 17:19:04 [id number] [facility] [address],[place] [address] 01/14/2024 16:45:51 01/15/2024 09:47:50 Amenorrhea 75693312 N91.2 [id number] [facility] [address],[place] [address] 02/18/2024 16:44:03 02/18/2024 23:27:31 screening 339546571 Z36.82 Z3A.13 [id number] Sherrie Blankenship [place] [address],[place] [address] 02/18/2024 16:44:43 02/19/2024 11:36:35 Routine care 485943976 Z34.90 Gestation period, 12 weeks 20022830 Z3A.12 [id number] [facility] [address],[place] [address] 03/17/2024 16:49:53 03/17/2024 17:25:00 Gestation period, 17 weeks 20856004 Z3A.17 [id number] Guerita Jiménez [place] [address] [place] [address] 03/23/2024 15:14:06 03/23/2024 15:35:59 Vaginitis 95184791 N76.0 [id number] Irma Mendoza [place] [address] [place] [address] 03/31/2024 13:01:02 03/31/2024 13:23:11 Urinary tract infectious disease 54827617 N39.0 Yeast detected 497324993 R89.5 [id number] [facility] [address],[place] [address] 04/07/2024 11:33:40 04/07/2024 12:52:43 screening for malformation 737888709 Z36.3 Z3A.20 [id number] Katherin Hammond [facility] [address],[place] [address] 04/07/2024 11:34:02 04/07/2024 13:01:19 Gestation period, 20 weeks 70964546 Z3A.20 continue vitamin Placenta p revia partialis 51540200 O44.20 [id number] [facility] [address] [place] [address] 05/05/2024 09:20:42 05/05/2024 10:25:15 Placenta circumvallata 1395523 O43.112 O44.40 Z3A.24 [id number] [facility] [address] [place] [address] 05/05/2024 09:21:22 05/05/2024 10:52:21 Gestation period, 24 weeks 587785211 Z3A.24 [id number] [facility] [address] [place] [address] 06/10/2024 09:53:50 06/10/2024 11:35:44 Gestation period, 29 weeks 98541729 Z3A.29 [id number] [facility] [address] [place] [address] 06/23/2024 10:51:13 06/23/2024 12:11:51 Gestation period, 31 weeks 81347785 Z3A.31 [id number] [facility] [address] [place] [address] 06/28/2024 11:47:52 06/28/2024 12:42:11 Spotting per vagina in 371349323 O26.853 Z3A.31 Health Concerns Section Related Observation LastModified by Organization Detai ls LastModified Time None Recorded Concern Status LastModified by Organization Details LastModified Time None Recorded Advance Directives Directive N: Payers Encounter Date Sequence Insurance Name Policy Number Policy Ellison Covered Member ID Ellison Member ID Guarantor Name 05/05/2024 1 [employer] [id number] Ira Boeser [id number] Ira Boeser 05/05/2024 1 UMR [id number] Ira Boeser [id number] Ira Boeser 06/10/2024 1 UMR [id number] Ira Boeser [id number] Ira Boeser 06/23/2024 1 UMR [id number] Ira Boeser [id number] Ira Boeser 06/28/2024 1 UMR [id number] Ira Boeser [id number] Ira Boeser OBGyn Episode Ob Episode Information Episode Created Date Number of Fetuses Patient Bloodtype Patient rh Status Prepregnancy Weight lbs Domestic Partner Domestic Partner Phone Father Name 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 Status 02/18/20 24 1 A Positive 153 OPEN Fetus Data First Name Last Name Admitted to NICU Weight (g) Sex Living Outcome Pediatric Complications Fetus ID Race Codes Race Delivery Type [id number] Problems Problem Notes Checking BS x 2 wks Problem Name Start Date End Date Resolution Snomed Code Not e Blood glucose outside reference range 134725604 decided on 3 hr gtt sced 06/17 Mixed anxiety and depressive disorder 901301009 no curre nt meds Hemorrhoidectomy 98660643 202 2 with colonoscopy Placenta previa marginalis 11395112 resolved Herpes simplex 52996313 on bl ood test, plan 36 week valtrex, as a precaution Attention deficit hyperactivity disorder 963938061 no cu rrent meds Alber Calculation Initial Alber Date Initial Exam Date Initial Exam Provider Initial Ultrasound Date Last Menstrual Period Date Ultra Sound Weeks Gestation 08/24/2024 01/14/2024 Katherin Hammond 01/01/2024 11/18/2023 6 Eighteen To Twenty Week Alber Update Ultra Sound Date Fundal Height At Umbil Quickening Date Ultra Sound Latest Weeks Gestation Final Alber Confirmed By Final Alber Confirmed Date Final Alber Date Ultra Sound Latest Days Gestation 0 0 Pre- Flowsheet Flowsheet Date 02/18/2024 Nunez Score Blood Edema Fundus Height Fundus Units Glucose Ketones Leukocytes Nitrite Labor Signs Protein Cervic Dilation Cervic Effacement Cervic Station Type Weight in lbs Pre/Post Dialysis Refused BP Diastolic BP Location Tested BP Systolic BP Type Fetus Heart Rate Present Fetus Movement Comments Flowsheet Date 02/18/2024 Nunez Score Blood Edema Fundus Height Fundus Units Glucose Ketones Leukocytes Nitrite Labor Signs Protein Cervic Dilation Cervic Effacement Cervic Station neg none none trace Type Weight in lbs Pre/Post Dialysis Refused 158.805929850184 BP Diastolic BP Location Tested BP Systolic BP Type 93 125 Fetus Heart Rate Present Fetus Movement A No Comments reviewed history, no current medications, moving from [place] to [place] this weekend with FOB, doing well, some stress after told family about , reviewed US, blood work complete, ok for flu and covid, start routine care Flowsheet Date 03/17/2024 Nunez Score Blood Edema Fundus Height Fundus Units Glucose Ketones Leukocytes Nitrite Labor Signs Protein Cervic Dilation Cervic Effacement Cervic Station none Type Weight in lbs Pre/Post Dialysis Refused 167.906525076215 BP Diastolic BP Location Tested BP Systolic BP Type 84 131 Fetus Heart Rate Present Fetus Movement A No Comments Patient states that is havin g some pain. not feeling baby move yet, anatomy next visit, did not get the house trying to find another, precautions and education f/u 3 weeks Flowsheet Date 03/23/2024 Nunez Score Blood Edema Fundus Height Fundus Units Glucose Ketones Leukocytes Nitrite Labor Signs Protein Cervic Dilation Cervic Effacement Cervic Station Type Weight in lbs Pre/Post Dialysis Refused Weight 168.525228816132 BP Diastolic BP Location Tested BP Systolic BP Type 85 L arm 126 sitting Fetus Heart Rate Present Fetus Movement Comments Flowsheet Date 03/31/2024 Nunez Score Blood Edema Fundus Height Fundus Units Glucose Ketones Leukocytes Nitrite Labor Signs Protein Cervic Dilation Cervic Effacement Cervic Station Type Weight in lbs Pre/Post Dialysis Refused Weight 168.871141282279 BP Diastolic BP Location Tested BP Systolic BP Type 84 L arm 124 sitting Fetus Heart Rate Present Fetus Movement Comments Flowsheet Date 04/07/2024 Nunez Score Blood Edema Fundus Height Fundus Units Glucose Ketones Leukocytes Nitrite Labor Signs Protein Cervic Dilation Cervic Effacement Cervic Station Type Weight in lbs Pre/Post Dialysis Refused BP Diastolic BP Location Tested BP Systolic BP Type Fetus Heart Rate Present Fetus Movement Comments Flowsheet Date 04/07/2024 Nunez Score Blood Edema Fundus Height Fundus Units Glucose Ketones Leukocytes Nitrite Labor Signs Protein Cervic Dilation Cervic Effacement Cervic Station none Type Weight in lbs Pre/Post Dialysis Refused 171.621463375430 BP Diastolic BP Location Tested BP Systolic BP Type 96 146 83 138 Fetus Heart Rate Present Fetus Movement A Yes Comments Patient states that has some pain. reviewed US, marginal previa, reviewed precautions start pelvic rest and lifting restrictions and f/u in 4 weeks. anatomy complete Flowsheet Date 05/05/2024 Nunez Score Blood Edema Fundus Height Fundus Units Glucose Ketones Leukocytes Nitrite Labor Signs Protein Cervic Dilation Cervic Effacement Cervic Station Type Weight in lbs Pre/Post Dialysis Refused BP Diastolic BP Location Tested BP Systolic BP Type Fetus Heart Rate Present Fetus Movement Comments Flowsheet Date 05/05/2024 Nunez Score Blood Edema Fundus Height Fundus Units Glucose Ketones Leukocytes Nitrite Labor Signs Protein Cervic Dilation Cervic Effacement Cervic Station trace Type Weight in lbs Pre/Post Dialysis Refused [id number] BP Diastolic BP Location Tested BP Systolic BP Type 97 142 Fetus Heart Rate Present Fetus Movement A Yes Comments Patient is having some swell ing. reviewed precautions education, cHTN possibly pt to monitor f/u 4 weeks off pelvic rest, LLP resolved f/u 4 weeks with gct Flowsheet Date 06/10/2024 Nunez Score Blood Edema Fundus Height Fundus Units Glucose Ketones Leukocytes Nitrite Labor Signs Protein Cervic Dilation Cervic Effacement Cervic Station neg trace 27 cm Type Weight in lbs Pre/Post Dialysis Refused Weight 193.721069042530 BP Diastolic BP Location Tested BP Systolic BP Type 87 L arm 133 sitting Fetus Heart Rate Present A 150 Present Fetus Movement A Yes Comments Patient c/o of swelling in l egs and feet. precautions and education rx for tdap and rsv given, +FM GCT today. f/u 2 weeks Flowsheet Date 06/23/2024 Nunez Score Blood Edema Fundus Height Fundus Units Glucose Ketones Leukocytes Nitrite Labor Signs Protein Cervic Dilation Cervic Effacement Cervic Station neg trace Type Weight in lbs Pre/Post Dialysis Refused 196.310847058959 BP Diastolic BP Location Tested BP Systolic BP Type 87 139 Fetus Heart Rate Present Fetus Movement A Yes Comments bp elevated last night with chest tightness, had this 2 years ago had echo and cardiac workup all was negative, went away and now back only at hs, feels fine now, will plan cardiac cath technologist. passed 3 hr GCTnormotensive today, +FM precautions and education f/u 2 weeks Flowsheet Date 06/28/2024 Nunez Score Blood Edema Fundus Height Fundus Units Glucose Ketones Leukocytes Nitrite Labor Signs Protein Cervic Dilation Cervic Effacement Cervic Station Type Weight in lbs Pre/Post Dialysis Refused BP Diastolic BP Location Tested BP Systolic BP Type Fetus Heart Rate Present Fetus Movement Comments Menstrual History Last Menstrual Date Menses Monthly On Bcp Conception Prior Menses Frequency Hcg Plus Date Menarche Onset Age 0611/18/2023 Delivery Information Delivery Date Delivery Type Labor Anesthesia Weeks Gestation Incision Type Labor Labor Length Hrs Delivered By Post Complications Tubal Sterilization Discharge Date Comments Discharge Information Feeding Method Contraceptive Method Maternal HG B and HCT Levels
--- OUTSIDE RECORDS SUMMARY | 2024-06-29 11:34 | XMS_ITS | Referral Summary ---
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 This disclosure is being madepursuant to the Care Everywhere program and may not contain all information available regarding this patient. Last updated 18.[facility] Allergies Active Allergy Reactions Criticality Noted Date Comments Citalopram Rash Medium 07/08/2020 Cefdinir Other 07/08/2020 Cannot remember , stated maybe a rash and itching Penicillins Rash Medium 07/08/2020 Medications * Be aware that medications may not be up to date on this document. Alwaysverify current medications with the patient. Medication Sig Dispensed Refills Start Date End Date Status atomoxetine (STRATTERA) 80 MG capsule Take by mouth every morning Active traZODone (DESYREL) 50 MG tablet Take 50 mg by mouth at bedtime Active valACYclovir HCl (VALTREX PO) prn Active Active Problems No known active problems Social [...] Comments Blood Pressure 132/84 07/08/2020 10:27 AM YOU[employer] PROFESSIONAL Pulse 85 07/08/2020 10:27 AM YOU[employer] C[employer] PROFESSIONAL Temperature 37.2 ??C (99 ??F) 07/08/2020 10:27 AM YOU[employer] C[employer] PROFESSIONAL Respiratory Rate 16 07/08/2020 10:27 AM YOU[employer] PROFESSIONAL Oxygen Saturation 98% 07/08/2020 10:27 AM YOU[employer] PROFESSIONAL Inhaled Oxygen Concentration - - Weight 77.1 kg (170 lb) 07/08/2020 10:27 AM YOU[employer] C[employer] PROFESSIONAL Height 167.6 cm (5' 6 ) 07/08/2020 10:27 AM YOU[employer] PROFESSIONAL Body Mass Index 27.44 07/08/2020 10:27 AM YOU[employer] C[employer] PROFESSIONAL Plan of Treatment Not on file Jenny Apple Personal/Famil y Self 1995 [address] [address]
--- OUTSIDE RECORDS SUMMARY | 2024-06-29 11:34 | XMS_ITS | Continuity of Care Document ---
Author Organization [facility] [place] Address [address] [place] [address] [place] [address] Care Team Providers Care Adjunct Physics Instructor Name Role Phone ROSE LAROSE Primary Care Provider Assessment No assessment recorded. Plan of Treatment Reminders Order Date Submit [...] None recorde d. Imaging US, obstetr ic, limited 2024 025 [email or web address] [place], [address], [place], [address], 06/28/2024 20:45:50 Medication Orders None recorde d. Patient TargetsNo targets recorded. Patient InstructionsNo instructions recorded. Reason for Referral None Reported. Results Created Date Observation Date Name Description Value Unit Range Abnormal Flag Note LastModifiedBy Organization Detail LastModifiedTime 02/18/2002/18/2024 US, obste tric, nucha l trans lucen cy No observ ation record ed. [email or web address] [place] [address], [place], [address], 02/18/2024 18:17:42 02/18/2002/18/2024 US, obste tric, nucha l trans lucen cy No observ ation record ed. HAYDE [address], [place], [address], 02/19/2024 10:17:39 04/07/20 24 04/07/2024 US, obste tric, 2nd or 3rd trime ster No observ ation record ed. [email or web address] [place] [address], [place], [address], 04/07/2024 18:21:04 04/07/20 24 04/07/2024 US, obste tric, 2nd or 3rd trime ster No observ ation record ed. [email or web address] [address], [place], [address], 04/07/2024 23:13:22 05/05/20 24 05/05/2024 US, obste tric, follo w-up No observ ation record ed. [facility] [address], [place], [address], 05/05/2024 13:09:30 05/05/20 24 05/05/2024 US, obste tric, follo w-up No observ ation record ed. [email or web address] [address], [place], [address], 05/05/2024 22:53:04 06/28/19 25 06/28/2024 US, obste tric, limit ed No observ ation record ed. [email or web address] [place] [address], [place], [address], 06/28/2024 16:26:57 06/28/19 25 06/28/2024 US, obste tric, limit ed No observ ation record ed. [email or web address] [address], [place], [address], 06/28/2024 21:45:19 Result Notes None recorded. Problems Name Problem SNOMED Code Status Onset Date Resolution Date Notes Provider Name and Address Organization Details Recorded Time Mixed anxiety and depressi ve disorder 816885672 Active no current meds Katherin Hammond CNM [address], [place], [address], [facility] 4 18:13:46 Attentio n deficit hyperact ivity disorder 833085489 Active no current meds Katherin Hammond CNM [address], [place], [address], [facility] 4 18:13:41 Human papillom a virus infectio n 389509421 Active Katherin Hammond CNM [address], [place], [address], [facility] 4 18:11:59 Herpesvi jhon infectio n 09260340 Active 2023 Sherrie willard, [facility] 4 17:47:43 Abnormal cervical Papanico laou smear 630409244 Active 2023 8 ascus hpv Sherrie willard, [facility] 4 17:48:39 Pregnanc y 97274026 Active 2023 Sherrie willard, [facility] 4 17:18:41 Herpes simplex 15372118 Active on blood test, plan 36 week valtrex, as a precauti on Katherin Hammond CNM [address], [place], [address], [facility] 4 18:14:14 Mixed anxiety and depressi ve disorder 175262200 Active no current meds Katherin Hammond CNM [address], [place], [address], [facility] 4 18:13:46 Attentio n deficit hyperact ivity disorder 806348028 Active no current meds Katherin Hammond CNM [address], [place], [address], [facility] 4 18:13:41 Hemorrho idectomy Active 2021 with colonosc opy Katherin Hammond CNM [address], [place], [address], [facility] 4 18:13:32 Placenta previa marginal is 46719556 Active resolved Katherin Hammond CNM [address], [place], [address], [facility] 4 10:41:39 Blood glucose outside referenc e range 203573274 Active decided on 3hr gtt sced 06/17 Re Sidney willard, [facility] 5 14:32:15 Blood glucose outside referenc e range 018728560 Active decided on 3hr gtt sced 06/17 [facility] 14:32:15 Speciali zed medical examinat ion Completed 201305/23/2020 Other specifie d chlamydi al diseases ;Practic e ID: 0001 Jenn Solano MD [address], [place], [address], [facility] 0 16:44:24 Venereal disease screenin g Completed 201305/23/2020 Screenin g examinat ion for venereal disease; Practice ID: 0001 Jenn Solano MD [address], [place], [address], [facility] 0 16:44:40 Amenorrh ea 19564509 Completed 201405/23/2020 AMENORRH EA;Pract ice ID: 0001 Jenn Solano MD [address], [place], [address], [facility] 0 16:43:25 Pregnanc y test negative 482596649 Completed 201405/23/2020 Negative Pregnanc y Test;Pra ctice ID: 0001 Jenn Solano MD [address], [place], [address], [facility] 0 16:44:08 Female genital organ symptoms 993895027 Completed 201405/23/2020 Pelvic Pain;Pra ctice ID: 0001 Jenn Solano MD [address], [place], [address], [facility] 0 16:43:42 Leukorrh ea 499476225 Completed 201405/23/2020 Leukorrh ea, not specifie d as infectiv e;Practi ce ID: 0001 Jenn Solano MD [address], [place], [address], [facility] 0 16:44:00 Fever 796116304 Completed 201405/23/2020 FEVER NOS;Prac dorothy ID: 0001 Jenn Solano MD [address], [place], [address], [facility] 0 16:43:49 Nausea 154004500 Completed 201405/23/2020 Nausea alone;Pr actice ID: 0001 Jenn Solano MD [address], [place], [address], [facility] 0 16:44:03 Adult health examinat ion Completed 201405/23/2020 Routine general medical examinat ion at a health care facility ;Practic e ID: [address] MD [address], [place], [address], [facility] 0 16:43:27 Sexually transmit robby infectio us disease 9698322 Completed 201402/05/2021 Venereal disease, unspecif ied;Prac dorothy ID: 0001 Galilea Power montse, [facility] 1 10:29:40 Vaginola bial hernia Completed 201405/23/2020 Other specifie d noninfla mmatory disorder s of vagina;P ractice ID: 0001 Jenn Solano MD [address], [place], [address], [facility] 0 16:44:36 Pelvic and perineal pain 957256392 Completed 201405/23/2020 Pelvic and perineal pain;Pra ctice ID: 0001 Jenn Solano MD [address], [place], [address], [facility] 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 0 16:44:17 Educatio n Completed 201805/23/2020 Encounte r for other general counseli ng and advice on contrace ption;Re corded Elsewher e: No Locat ion: [facility] S ource: [employer] Founder kwame: N Practi ce ID: 0001 Scott lable Time: 11:00:00 AM Jenn Solano MD [address], [place], [address], [facility] 0 16:43:35 Bleeding 740499278 Completed 201905/23/2020 Abnormal uterine bleeding ;Recorde d Elsewher e: No Locat ion: [facility] S ource: [employer] Founder kwame: N Practi ce ID: 0001 Scott lable Time: 10:15:00 AM Jenn Solano MD [address], [place], [address], [facility] [address] 16:43:[address] Concept Completed 201605/23/2020 Encntr for deli slicer exam (general ) (routine ) w/o abn findings ;Recorde d Elsewher e: No Locat ion: [facility] S ource: [employer] Founder kwame: N Practi ce ID: 0001 Scott lable Time: 08:30:00 AM Jenn Solano MD [address], [place], [address], [facility] 0 16:44:21 Increase d frequenc y of urinatio n 295911743 Completed 201705/23/2020 Frequenc y of micturit ion;Cosmo rded Elsewher e: No Locat ion: [facility] S ource: [employer] Founder kwame: N Montez ce ID: 0001 Scott lable Time: 08:30:00 AM Jenn Solano MD [address], [place], [address], [facility] 0 16:43:57 Disorder of breast 17235817 Completed 201605/23/2020 Disorder of breast, unspecif ied;Cosmo rded Elsewher e: No Locat ion: [facility] S ource: [employer] Founder kwame: N Practi ce ID: 0001 Scott lable Time: 09:30:00 AM MD [address], [place], [address], [facility] 0 16:43:32 Finding of regulari ty of menstrua l cycle Completed 201905/23/2020 Irregula r menstrua tion, unspecif ied;Cosmo rded Elsewher e: No [facility] [employer] Co Founder kwame: N Practi ce ID: 0001 Scott lable Time: 09:30:00 AM Jenn Solano MD [address], [place], [address], [facility] 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 0 16:44:30 Atypical squamous cells of undeterm ined signific ance on cervical Papanico laou smear 490426787 Completed 201712/17/2021 [facility] 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 0 16:43:38 Herpes simplex 79539907 Completed 201512/17/2021 Irma willard [facility] 2 11:49:39 Atypical squamous cells on cervical Papanico laou smear cannot exclude high grade squamous intraepi thelial lesion 772479051 Completed 201802/05/2021 Galilea willard [facility] 1 10:41:03 Abnormal uterine bleeding 9758082860 9100 Completed 201802/05/2021 Other specifie d abnormal uterine and vaginal bleeding ;Practic e ID: 0001 Galilea willard, [facility] 1 10:29:37 Problem Notes None recorded. Procedures Surgical History Date Name Laterality Status Provider Name and Address Organization Details Recorded Time 024 Date of Last Pap Smear completed Sherrie Blankenship [facility] 02/18/2024 17:17:49 022 thumb surgery completed Sherrie Blankenship [facility] 01/15/2024 12:37:08 022 hemorrhoidectomy completed Sherrie Blankenship [facility] 01/15/2024 12:36:55 09/20/2 021 Date of Last Colonoscopy completed Irma Lanier [facility] 12/17/2021 12:03:00 021 Colonoscopy completed Sherrie Blankenship [facility] 01/15/2024 12:36:43 021 procedure on wrist completed Sherrie Blankenship [facility] 01/15/2024 12:37:03 Imaging Results Imaging Date Name Status LastModified by Organiz ation Details LastModified Time 06/28/2024 US, obstetric, limited completed [email or web address] [place] [address], [place], [address], 06/28/2024 16:26:57 Procedure Notes None recorded. Medical Equipment None Reported. Allergies Allergen ID Allergen Name Allergen Category Reaction Reaction Severity Criticality Documentation Date Start Date Code Code System Note Provider Name and Address Organization Details Recorded Time 573 cefdinir medicatio n Not available Not available Not available 10/06/2019 22492 RxNorm Gayatri Chong [facility] 0 11:50:55 574 Product containin g cephalosp lidia (product) medicatio n Not available Not available Not available 10/06/2019 84219 9009 SNOMED Gayatri Chong [facility] 0 11:51:08 575 citalopra m medicatio n Not available Not available Not available 10/06/2019 2556 RxNorm cital opram hydro bromi de Gayatri Chong [facility] 0 11:51:56 576 Product containin g penicilli n and antibioti c (product) medicatio n Not available Not available Not available 10/06/2019 93125 05 SNOMED Gayatri Chong [facility] 0 11:52:07 Medications Name Sig Start [...] Elsewher e: No Locat ion: [facility] M odify By: [email or web address] ich Enco unter [...] Elsewher e: Yes Loca tion: Indigo te[facility] odify By: [email or web address] trick En counter DateTime [...] Prescrib ed Elsewher e: No Locat ion: Dejahmarielle puneet [facility] odify By: [email or web address] trick En counter DateTime : 12/20/19 15 10:37:18 AM Not Available Not Available Not Available Diflucan 50 mg tablet take 2 tablet by oral route every day 01/12 completed Prescrib ed Elsewher e: Yes Loca tion: Dejahmarielle [facility] odify By: [email or web address] trick En counter DateTime : 12/15/19 15 09:00:00 AM Not Available Not Available Not Available Loestrin 06/14 (21) 1 mg-20 mcg tablet take 1 tablet by oral route every day 11/25 completed Prescrib ed Elsewher e: No Locat ion: Dejahbatshevahiginio teixeira [facility] odify By: [email or web address] koch DateTime : 11/04/19 03:55:59 PM Not Available Not Available Not Available Valtrex 1 gram tablet take 1 tablet by oral route every 24 hours 05/23 completed Prescrib ed Elsewher e: No Locat ion: [facility] odify By: lbillhar tz Encou nter DateTime : 02/17/20 10:30:00 AM [...] Prescrib ed Elsewher e: No Locat ion: [facility] odify By: fabiola lee DateTime : 10/29/19 03:01:34 PM Not Available Not Available Not [...] Prescrib ed Elsewher e: Yes Loca tion: [facility] odify By: [email or web address] torie willis DateTime : 12/17/19 02:35:38 PM Not Available Not Available Not Available Zithromax 500 mg tablet Take 2 pills all at once by oral route 01/12 completed Prescrib ed Elsewher e: No [facility] By: [email or web address] trick En counter DateTime [...] Elsewher e: Yes Loca tion: Indigo te[facility]eira [facility] odify By: [email or web address] trick En counter DateTime : 12/15/19 15 09:00:00 AM Not Available Not Available Not Available Lexapro 5 mg tablet take 1 tablet by oral route every day 05/23 completed Prescrib ed Elsewher e: Yes [facility] By: [email or web address] z Encoun ter DateTime : 02/17/20 10:30:00 AM Not Available Not Available Not Available Ritalin LA 10 mg capsule,e xtended release take 1 capsule by oral route every day in the morning 05/23 completed Prescrib ed Elsewher e: Yes [facility] By: [email or web address] E ncounter DateTime : 06/01/19 03:30:00 PM Not [...] Elsewher e: No Locat ion: [facility] te[facility] odify By: lissette aranda Encou nter DateTime : 02/17/20 10:30:00 AM Not Available Not Available Not Available B12 5,000 mcg-100 mcg sublingua l lozenge 05/23 completed Prescrib ed Elsewher e: Yes Loca tion: Dejahmarielle puneet [facility] odify By: padmaja Teixeira ncounter DateTime : 06/01/19 03:30:00 PM Not Available Not Available Not Available ProChambe r USE DIRECTED 07/24 completed Not Available Not Available Not Available Gynazole- 1 2 % vaginal cream insert 1 applicat orful by vaginal route once 06/15 completed Prescrib ed Elsewher e: No Locat ion: [facility] odify By: david ich Enco unter DateTime : 02/19/20 01:26:20 PM Not Available Not Available Not Available Nasacort 55 mcg nasal spray aerosol 05/23 completed Prescrib ed Elsewher e: Yes Loca tion: [facility] te[facility] odify By: padmaja Teixeira ncounter DateTime : [...] Available Not Available Not Available Afluria Qd 2019- (36 mos up)(PF)60 mcg (15 mcg x4)/0.5 mL IM syringe 03/18 completed Not Available Not Available Not Available Vitals None Recorded Social History Question Answer Notes LastModified by Organizat ion Details LastModified Time Tobacco Smoking Status Never Smoker Naila Paul [facility], [facility] 06/04/2023 09:52:40 Do You Have An Advance Directive? No [email or web address] Information n ot available 02/05/2021 What Is Your Level Of Alcohol Consumption? None [email or web address] Information not available 01/14/2024 If You Are , What Was Your Level Of Alcohol Consumption Prior To ? Occasional [email or web address] Information not available 01/14/2024 Are You Blind Or Do You Have Difficulty Seeing? No [email or web address] Information n ot available 02/05/2021 What Is Your Level Of Caffeine Consumption? Moderate Information not available 12/17/2021 How Much Tobacco Do You Chew? None [email or web address] Information not available 02/05/2021 In The 14 Days Before Symptom Onset, Have You Had Close Contact With A Laboratory-confirm ed COVID-19 While That Case Was Ill? No Information n ot available 02/05/2021 In The 14 Days Before Symptom Onset, Have You Had Close Contact With A Person Who Is Under Investigation For COVID-19 While That Person Was Ill? No [email or web address] Information not available 02/05/2021 Have You Been To An Area Known To Be High Risk For COVID-19? No [email or web address] Information not available 02/05/2021 Are You Deaf Or Do You Have Serious Difficulty Hearing? No Information not available 02/05/2021 What Type Of Diet Are You Following? REGULAR [email or web address] Information n ot available 02/05/2021 What Is The Highest Grade Or Level Of School You Have Completed Or The Highest Degree You Have Received? [id number] [email or web address] Information not available 02/05/2021 Are There Any Guns Present In Your Home? No [email or web address] Information not available 02/05/2021 Do You Use Protection During Sex? No Information not available 12/17/2021 Do You Use Your Seat Belt Or Car Seat Routinely? Yes [email or web address] Information not available 02/05/2021 Are You Sexually Active? Yes [email or web address] Information not available 06/10/2024 Do You Have Smoke And Carbon Monoxide Detectors In Your Home? No Information not available 02/05/2021 How Much Tobacco Do You Smoke? No [email or web address] Information not available 02/05/2021 Do You Feel Stressed (tense, Restless, Nervous, Or Anxious, Or Unable To Sleep At Night)? [id number] [email or web address] Information not available 02/05/2021 Do You Use Any Illicit Or Recreational Drugs? No [email or web address] Information not available 02/05/2021 Do You Use Sunscreen Routinely? No [email or web address] Information not available 02/05/2021 Have You Used IV Drugs? No [email or web address] Information not available 02/05/2021 Sex: Unknown Functional Status Question Answer Note LastModified by Organizat ion Details LastModified Time Do you have difficulty walking or climbing stairs? No [email or web address] Information not available 06/04/2023 Are you able to walk? YESWOREST [email or web address] Information not available 02/05/2021 Are you able to care for yourself? Yes [email or web address] Information not available 06/04/2023 Do you have difficulty dressing or bathing? No [email or web address] Information not available 06/04/2023 What is your exercise level? Occasional [email or web address] Information not available 02/18/2024 Mental Status None recorded. Family History Relationship Description Onset Age of this Age Resolved Age Notes LastModified by Organization Details LastModified Time Mother Asthma [email or web address] Not available 12:02:56 Mother Diabetes mellitus [email or web address] Not available 2019 11:52:51 Mother Hypertensive disorder [email or web address] Not available 2019 11:53:19 Mother Female infertility [email or web address] Not available 07/2024 11:48:47 Mother Cyst of ovary [email or web address] Not available 2024 11:48:47 Mother Polycystic ovary syndrome [email or web address] Not available 2024 11:48:47 Mother Anxiety disorder phewitt Not available 2020 10:34:10 Mother Mental disorder phewitt Not available 2020 10:34:10 Mother Depressive disorder [email or web address] Not available 2021 12:02:56 Mother Heart disease [email or web address] Not available 2021 12:02:56 Mother Myocardial infarction [email or web address] Not available 12/25 12:37:37 Maternal Grandmother Hypertensive disorder jgumber Not available 2019 11:53:19 Father Hypertensive disorder jgumber Not available 2019 11:53:19 Maternal Grandfather Family history of blood coagulation disorder [email or web address] Not available 2024 11:48:47 Paternal Grandmother Depressive disorder [email or web address] Not available 2021 12:02:57 Paternal Grandmother Mental disorder phewitt Not available 2020 10:34:10 Unspecified Relation Asthma [email or web address] Not available 12:02:57 Medical History Condition Response Allergies (Food, seasonal, environmental ) Y Other N Blood Transfusion N Drug/Latex Allergies/Reactions Y Breast Cancer N Dermatologic Disorders N Lung Disease N [...] SNOMED-CT Code Diagnosis ICD10 Code Diagnosis Note [id number] Katherin Hammond [facility] [address] [address] 06/10/2024 09:53:50 06/10/2024 11:35:44 Gestation period, 29 weeks 54301277 Z3A.29 [id number] Katherin Hammond [facility] [address],[place] [address] 06/23/2024 10:51:13 06/23/2024 12:11:51 Gestation period, 31 weeks 28861451 Z3A.31 [id number] Janice Lanier [facility] [address] [address] 06/28/2024 11:47:52 06/28/2024 12:42:11 Spotting per vagina in 940331853 O26.853 Z3A.31 Health Concerns Section Related Observation LastModified by Organization Detai ls LastModified Time None Recorded Concern Status LastModified by Organization Details LastModified Time None Recorded Payers Encounter Date Sequence Insurance Name Policy Number Policy Ellison Covered Member ID Ellison Member ID Guarantor Name 06/28/2024 1 [facility] [id number] Ira Apple [id number] Ira Apple OBGyn Episode Ob Episode Information Episode Created Date Number of Fetuses Patient Bloodtype Patient rh Status Prepregnancy Weight lbs Domestic Partner Domestic Partner Phone Father Name Cutter Woodwind Reeds Status 02/18/20 24 1 A Positive 153 OPEN Fetus Data First Name Last Name Admitted to NICU Weight (g) Sex Living Outcome Pediatric Complications Fetus ID Race Codes Race Delivery Type [id number] Problems Problem Notes Checking BS x 2 wks Problem Name Start Date End Date Resolution Snomed Code Not e Blood glucose outside reference range [id number] decided on 3 hr gtt sced 06/17 Mixed anxiety and depressive disorder [id number] no curre nt meds Hemorrhoidectomy [id number] 202 2 with colonoscopy Placenta previa marginalis [id number] resolved Herpes simplex [id number] on bl ood test, plan 36 week valtrex, as a precaution Attention deficit hyperactivity disorder [id number] no cu rrent meds Alber Calculation Initial [...] Ultra Sound Latest Days Gestation 0 0 Pre-anabelle Flowsheet Flowsheet Date 02/18/2024 Nunez Score Blood [...] Type Weight in lbs Pre/Post Dialysis Refused 158.402821415399 BP Diastolic BP Location Tested BP Systolic BP Type 93 125 Fetus Heart Rate Present Fetus Movement A No Comments reviewed history, no current medications, moving from [place] to [place] this weekend with FOB, doing well, some stress after told family about , reviewed US, blood work complete, ok for flu and covid, start routine care Flowsheet Date 03/17/2024 Nunez Score Blood Edema Fundus Height Fundus Units Glucose Ketones Leukocytes Nitrite Labor Signs Protein Cervic Dilation Cervic Effacement Cervic Station none Type Weight in lbs Pre/Post Dialysis Refused 167.847671815116 BP Diastolic BP Location Tested BP Systolic [...] Weight in lbs Pre/Post Dialysis Refused Weight 168.493060461897 BP Diastolic BP Location Tested BP Systolic BP Type 85 L arm 126 sitting Fetus Heart Rate Present Fetus Movement Comments Flowsheet Date 03/31/2024 Nunez Score Blood Edema Fundus Height Fundus Units Glucose Ketones Leukocytes Nitrite Labor Signs Protein Cervic Dilation Cervic Effacement Cervic Station Type Weight in lbs Pre/Post Dialysis Refused Weight 168.034607850130 BP Diastolic BP Location Tested BP Systolic [...] Type Weight in lbs Pre/Post Dialysis Refused 171.996550687115 BP Diastolic BP Location Tested BP Systolic [...] Type Weight in lbs Pre/Post Dialysis Refused 182.808017789772 BP Diastolic BP Location Tested BP Systolic [...] Weight in lbs Pre/Post Dialysis Refused Weight 193.792055602686 BP Diastolic BP Location Tested BP Systolic [...] Type Weight in lbs Pre/Post Dialysis Refused 196.072476107042 BP Diastolic BP Location Tested BP Systolic BP Type 87 139 Fetus Heart Rate Present Fetus Movement A Yes Comments bp elevated last night with chest tightness, had this 2 years ago had echo and cardiac workup all was negative, went away and now back only at hs, feels fine now, 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 passed 3 hr GCTnormotensive today, +FM precautions [...]
--- OUTSIDE RECORDS SUMMARY | 2024-06-29 11:34 | XMS_ITS | Encounter Summary ---
Author Organization [facility] Address [address] [place] [address] Care Team Providers Care Bleach Liquor Maker Name Role Phone Unavailable Primary Care Provider Unavailabl e Encounter Details Date Type Department Care Team (Latest Contact Info) Description 03/09/2024 Transcribe Orders [facility] [place] [address] [place] [id number] Cassandra Butt MD [address] [facility] [address] [facility] [address] [place] [address] resulting from in vitro fertilization in second trimester (HCC) Social History Tobacco Use Types Packs/Day Years Used Date Smoking Tobacco: Never Smokeless Tobacco: Never Alcohol Use Standard Drinks/Week Comments Yes 0 (1 standard drink = 0.6 oz pur e alcohol) Sex and Gender Information Value Date Recorded Sex Assigned at Female 03/18/2021 10:13 PM CDT Gender Identity Not on file Sexual Orientation Straight 03/18/2021 10 :13 PM CDT documented as of this encounter Plan of Treatment Not on file documented as of this encounter Visit Diagnoses Diagnosis resulting from in vitro fertilization in second trimester (HCC)- Primary documented in this encounter
--- OUTSIDE RECORDS SUMMARY | 2024-06-29 11:34 | XMS_ITS | Encounter Summary ---
Author Organization [facility] Address [facility] [facility] [address] [place] [address] Care Team Providers Care Private Secretary Name Role Phone Vikash Ibarra MD Primary Care Provider [phone] Encounter Details Date Type Department Care Team (Late st Contact Info) Description 07/25/2022 Outdoor Promotions Message [facility] Patient [facility] [address] [place] [address] [facility] Provider Monthly Credit Card Payment Social History Tobacco Use Types Packs/Day Years [...] on file Sexual Orientation Not on file documented as of this encounter Plan of Treatment Not on file documented as of this encounter Visit Diagnoses Not on filedocumented in this encounter Care Teams Private Secretary Relationship Specialty Start Date End Date Vikash Ibarra MD [address] [place] [address] [address] [place] [address] PCP - General FAMILY PRACTICE 02/08/21 documented as of this encounter
--- OUTSIDE RECORDS SUMMARY | 2024-06-29 11:34 | XMS_ITS | Clinical Summary ---
Author Organization [email or web address] Address [address] [place] [address] Care Team Providers Care Mail Truck Driver Name Role Phone Unavailable Primary Care Provider Unavailabl e Source Comments [facility],non-owned Affiliates and Associated Physician Practices is amultiple site organization consisting of ambulatory clinics and hospital sitesin [place], [place], [place] and [place]. This disclosure is being madepursuant to the Care Everywhere program and may not contain all information available regarding this patient. Last updated 18.[email or web address] Allergies Active Allergy Reactions Criticality Noted Date [...] Comments Blood Pressure 132/84 07/08/2020 10:27 AM SENIOR ARCHITECTURAL DESIGNER Pulse 85 07/08/2020 10:27 AM SENIOR ARCHITECTURAL DESIGNER Temperature 37.2 ??C (99 ??F) 07/08/2020 10:27 AM SENIOR ARCHITECTURAL DESIGNER Respiratory Rate 16 07/08/2020 10:27 AM SENIOR ARCHITECTURAL DESIGNER Oxygen Saturation 98% 07/08/2020 10:27 AM SENIOR ARCHITECTURAL DESIGNER Inhaled Oxygen Concentration - - Weight 77.1 kg (170 lb) 07/08/2020 10:27 AM SENIOR ARCHITECTURAL DESIGNER Height 167.6 cm (5' 6 ) 07/08/2020 10:27 AM SENIOR ARCHITECTURAL DESIGNER Body Mass Index 27.44 07/08/2020 10:27 AM SENIOR ARCHITECTURAL DESIGNER Plan of Treatment Health Maintenance Due Date Last Done Comments PAP SMEAR 1993 HIV SCREENING 2008 HEPATITIS C SCREENING 03/11/2011 DTAP/TDAP/TD VACCINES (1 - Tdap) 2012 HEPATITIS B VACCINE (1 of 3 - 19+ 3-dose series) 2012 COVID-19 VACCINE (1 - 2023-2 5 season) 2024 INFLUENZA VACCINE (#1) 2024 DEPRESSION SCREENING 05/26/2024 ZOSTER VACCINE (1 of 2) 2043 HIB VACCINE Aged Out No longer eligi ble based on patient's age to complete this topic HPV VACCINE Aged Out No longer eligi ble based on patient's age to complete this topic MENINGOCOCCAL (Group B) VACCINE Aged Out No longer eligible based on patient's age to complete this topic MENINGOCOCCAL VACCINE Aged Out No edelmira yvan eligible based on patient's age to complete this topic PNEUMOCOCCAL VACCINE Aged Out No long er eligible based on patient's age to complete this topic Jenny Apple Personal/Famil y Self 1995 [place] [address]
--- OUTSIDE RECORDS SUMMARY | 2024-06-29 11:34 | XMS_ITS | Encounter Summary ---
Author Organization [facility] Address [facility] [facility] [place] [address] [place] [address] Care Team Providers Care Hand Carver Name Role Phone Vikash Ibarra MD Primary Care Provider [phone] Encounter Details Date Type Department Care Team (Late st Contact Info) Description 07/18/2021 Quantcastt Message Enc [facility] General Surgery [address], [address] [place] [address] Sami Andersen MD [address] [address] Question Social History Tobacco Use Types Packs/Day [...] on filedocumented in this encounter Care Teams Hand Carver Relationship Specialty Start Date End Date Vikash Ibarra MD [address] [place] [address] [address] [place] [address] PCP - General FAMILY PRACTICE 02/08/21 documented as of this encounter
--- NOTE | 2024-07-08 15:19 | WPDHOLTEREM ---
Holter/Event Monitor Holter/Event Monitor Date of procedure: 06/29/24 Holter/Event Procedure: 3-7 Day Holter Monitor Indications: Chest pain Conclusion: 1. 3 days holter monitor on 06/29/24. 2. Underlying rhythm is sinus rhythm. HR range 41-158 bpm; average HR 97 bpm. HR at 41 bpm was on 06/30/24 at 6:10 am due to second degree AV block as 1 drop beat. HR at 158 bpm was on 06/29/24 at 1:54 pm. 3. There are rare premature supraventricular complexes. No supraventricular tachycardia. 4. There are rare premature ventricular complexes, rare ventricular couplets. No ventricular tachycardia. 5. No significant pauses greater than 3 seconds. 1 episode of second degree AV block, type I as desribed above. 6. Patient reports 3 episodes of symptoms of shortness of breath, chest pressure which demonstrate sinus rhythm, HR range 92-103 bpm.
== END 2024-06-29 10:51 | disposition home or self-care (01) ==
LOC: ANHCARD 10:53
PROVIDERS: PCP Family Medicine; Visit Provider Advanced Practice Midwife
DX: R07.89 Other chest pain (principal); I44.1 Atrioventricular block, second degree; I49.1 Atrial premature depolarization; I49.3 Ventricular premature depolarization; R06.02 Shortness of breath
CPT/HCPCS: 93242

== ENCOUNTER 2024-07-28 12:25 | Outpatient (CLI) | payer OTHER, SELFPAY ==
[2024-07-28 12:46] VITALS: BP 141/86; PULSE 95
[2024-07-28 13:01] VITALS: BP 136/85; PULSE 93
[2024-07-28 13:06] LABS: Add Urine Microscopic? YES; Appearance Urine Cloudy (Clear); Bacteria Urine Rare /hpf; Bilirubin Urine Negative (Negative); Blood Urine Negative (Negative); Color Urine Yellow (Yellow); Glucose Urine UA Negative (Negative); Ketones Urine Negative (Negative); Leukocyte Esterase Ur 2+ LEU/UL (Negative); Nitrate Urine Negative (Negative); Non Pathogenic Casts 0-2; Protein Urine Negative (Negative); RBC Urine 0-2 /hpf (0-2); Specific Grav Ur 1.016 (1.001-1.035); Squamous Epithelial Cell Urine Few /hpf (Few); Urobilinogen Urine 0.2 mg/dL (<2.0)
[2024-07-28 13:07] LABS: Basophils Absolute Auto 0.1 K/mm3 (0.0-0.1); Basophils Percent Auto 0.6 % (0.2-1.2); Eosinophils Absolute Auto 0.3 K/mm3 (0-0.3); Eosinophils Percent Auto 2.4 % (0-4.4); Hematocrit 35.4 % (37.0-47.0); Hemoglobin 11.9 g/dL (12.0-15.0); Immature Granulocyte Absolute 0.09 K/mm3 (0.00-0.031); Immature Granulocyte Percent A 0.8 % (0-0.5); Lymphocytes Absolute Auto 1.43 K/mm3 (0.9-3.2); Lymphocytes Percent Auto 12.5 % (18.3-44.2); Mean Corpuscular HGB Conc 33.6 g/dl (32-36); Mean Corpuscular Hemoglobin 30.8 pg (26-34); Mean Corpuscular Volume 91.7 fl (80-100); Mean Platelet Volume 9.6 fl (7.4-10.4); Monocytes Percent Auto 8.5 % (2.6-8.5); Neutrophils Absolute Auto 8.6 K/mm3 (1.3-6.7); Neutrophils Percent Auto 75.2 % (45.5-73.1); Platelet Count Result 237 k/mm3 (150-375); Red Blood Count 3.86 M/mm3 (4.2-5.4); Red Cell Distribution Width 12.8 % (11.5-14.5); White Blood Count 11.5 K/mm3 (4.5-10.0)
[2024-07-28 13:14] LABS: Alanine Aminotransferase 18 U/L (6-35); Albumin Level 3.6 g/dL (3.5-5.1); Alkaline Phosphatase 107 U/L (38-126); Anion Gap 13 mmol/L (4-12); Aspartate Amino Transferase 26 U/L (14-36); Bilirubin,Total 0.2 mg/dL (0.2-1.3); Blood Urea Nitrogen 10 mg/dL (7-17); Calcium 9.1 mg/dL (8.4-10.2); Carbon Dioxide 16 mmol/L (22-30); Chloride 104 mmol/L (98-107); Estimated Glomerular Filt Rate > 60; Glucose 79 mg/dL (65-110); Sodium 133 mmol/L (137-145); Uric Acid 3.4 mg/dL (2.5-7.5)
[2024-07-28 13:15] VITALS: BMI 34.1
[2024-07-28 13:16] VITALS: BP 132/90; PULSE 91
[2024-07-28 13:31] VITALS: BP 131/82; PULSE 87
[2024-07-28 13:33] LABS: Creatinine Urine 62.6 mg/dL; Total Protein Urine Random 10 mg/dL; Ur Ttl Prot Creatinine Ratio 0.16 mg/mg (0-0.20)
--- NOTE | 2024-07-28 13:47 | PC.NURSE ---
1345- Spoke with Jean Hammond CNM regarding labs and BPs. Orders for patient to be discharged to home. Induction scheduled on 08/03/24 at 1600 for gestational hypertension.
--- OUTSIDE RECORDS SUMMARY | 2024-07-28 13:47 | XMS_ITS | Continuity of Care Document ---
Author Organization [facility] Address [address] [place] [address] Care Team Providers Care Wax Pattern Assembler Name Role Phone ROSE LAROSE Primary Care Provider [phone] Assessment No assessment recorded. Plan of Treatment Reminders Order Date Submit Date Provider Last Modified By Organization Details Last Modified Time Details Appointments NST 2024 11:00A M NST SCHEDULE Not available Not available Not available U/S OB BPP 2024 11:30A M ULTRASOUND Not available Not available Not available OB ROUTINE 2024 11:45A M Katherin Hammond CNM Not available Not available Not available U/S OB BPP 2024 09:30A M ULTRASOUND Not available Not available Not available NST 2024 09:00A M NST SCHEDULE Not available Not available Not available OB ROUTINE 2024 09:45A M Katherin Hammond CNM Not available Not available Not available U/S OB BPP 2024 08:30A M ULTRASOUND Not available Not available Not available NST 2024 09:00A M NST SCHEDULE Not available Not available Not available OB ROUTINE 2024 09:45A M Katherin Hammond CNM Not available Not available Not available U/S OB BPP 2024 09:00A M ULTRASOUND Not available Not available Not available NST 2024 09:30A M NST SCHEDULE Not available Not available Not available OB ROUTINE 2024 09:45A M Katherin Hammond CNM Not available Not available Not available OB ROUTINE 2024 09:15A M Katherin MAXIMINO HammondM Not available Not available Not available Lab None recorde d. Referral None recorde d. Procedures None recorde d. Surgeries None recorde d. Imaging US, obstetr ic, biophys ical profile + non-str ess test 2024 025 [email or web address] Formoso [facility] [address], [address], [place], [address], 07/28/2024 13:33:13 Medication Orders None recorde d. Patient TargetsNo targets recorded. Patient InstructionsNo instructions recorded. Reason for Referral None Reported. Results Created Date Observation Date Name Description Value Unit Range Abnormal Flag Note LastModifiedBy Organization Detail LastModifiedTime 02/18/20 24 02/18/2024 US, obste tric, nucha l trans lucen cy No observ ation record ed. [email or web address] [facility] [address], [place], [address], 02/18/2024 18:17:42 02/18/20 24 02/18/2024 US, obste tric, nucha l trans lucen cy No observ ation record ed. HAYDE [address], [place], [address], 02/19/2024 10:17:39 04/07/20 24 04/07/2024 US, obste tric, 2nd or 3rd trime ster No observ ation record ed. [email or web address] [facility] [address], [place], [address], 04/07/2024 18:21:04 04/07/20 24 04/07/2024 US, obste tric, 2nd or 3rd trime ster No observ ation record ed. tee [address], [place], [address], 04/07/2024 23:13:22 05/05/20 24 05/05/2024 US, obste tric, follo w-up No observ ation record ed. [email or web address] [facility] [address], [place], [address], 05/05/2024 13:09:30 05/05/20 24 05/05/2024 US, obste tric, follo w-up No observ ation record ed. [email or web address] [address], [place], [address], 05/05/2024 22:53:04 06/28/19 25 06/28/2024 US, obste tric, limit ed No observ ation record ed. [email or web address] [facility] [address], [place], [address], 06/28/2024 16:26:57 06/28/19 25 06/28/2024 US, obste tric, limit ed No observ ation record ed. [email or web address] [address], [place], [address], 06/28/2024 21:45:19 07/07/19 25 07/07/2024 US, obste tric, follo w-up No observ ation record ed. [email or web address] [facility] [address], [place], [address], 07/07/2024 12:50:28 07/07/19 25 07/07/2024 US, obste tric, follo w-up No observ ation record ed. [email or web address] [address], [place], [address], 07/12/2024 09:58:53 07/08/19 25 06/29/2024 johana r monit or No observ ation record ed. [email or web address] [facility] [address], [place], [address], 07/19/2024 16:01:44 07/08/19 25 06/29/2024 johana r monit or No observ ation record ed. [email or web address] [facility] (Neurology) [address], [place], [address], 07/19/2024 16:01:45 07/23/19 25 07/23/2024 non-s tress test No observ ation record ed. [email or web address] [place] [address] [address], [place], [address], 07/23/2024 18:04:10 07/23/19 25 07/23/2024 non-s tress test No observ ation record ed. [email or web address] [facility] [address], [place], [address], 07/23/2024 18:18:35 07/29/19 US, obste tric, bioph ysica l profi le + non-s tress test No observ ation record ed. [email or web address] [facility] [address], [place], [address], 07/28/2024 13:06:01 07/29/19 25 07/28/2024 US, obste tric, bioph ysica l profi le + non-s tress test No observ ation record ed. [email or web address] [address], [place], [address], 07/28/2024 13:09:23 Result Notes None recorded. Problems Name Problem SNOMED Code Status Onset Date Resolution Date Notes Provider Name and Address Organization Details Recorded Time Mixed anxiety and depressi ve disorder 532308685 Active no current meds Katherin Hammond CNM [address], [place], [address], [facility] 18:13:46 Attentio n deficit hyperact ivity disorder 676084171 Active no current meds Katherin Hammond CNM [address], [place], [address], [facility] 4 18:13:41 Human papillom a virus infectio n 630716087 Active Katherin Hammond CNM [address], [place], [address], [facility] 4 18:11:59 Herpesvi jhon infectio n 67094983 Active 2023 Sherrie willard, [facility] 4 17:47:43 Abnormal cervical Papanico laou smear 143177998 Active 2023 8 ascus hpv Sherrie willard, [facility] 4 17:48:39 Pregnanc y 66414895 Active 2023 Sherrie willard, [facility] 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 5 17:39:03 Mixed anxiety and depressi ve disorder 882364847 Active no current meds Katherin Hammond CNM [address], [place], [address], [facility] 4 18:13:46 Attentio n deficit hyperact ivity disorder 442386808 Active no current meds Katherin Hammond CNM [address], [place], [address], [facility] 4 18:13:41 Hemorrho idectomy Active 2021 with colonosc opy Katherin Hammond CNM [address], [place], [address], [facility] 4 18:13:32 Placenta previa marginal is 04282669 Active resolved Katherin Hammond CNM [address], [place], [address], [facility] 4 10:41:39 Blood glucose outside referenc e range 975767827 Active decided on 3hr gtt sced 06/17 Re Little null, [facility] 5 14:32:15 Blood glucose outside referenc e range 340486313 Active decided on 3hr gtt sced 06/17 Re willard, [facility] 5 14:32:15 Pregnanc y-induce d hyperten abigail 76244960 Active 37wk delivery , antenata l testing Re Little [facility], [facility] 5 12:27:56 Pregnanc y-induce d hyperten abigail 67158099 Active 37wk delivery , antenata l testing Re willard, [facility] 5 12:27:56 Speciali zed medical examinat ion Completed 201305/23/2020 Other specifie d chlamydi al diseases ;Practic e ID: 0001 Jenn Solano MD [address], [place], [address], [facility] 0 16:44:24 Venereal disease screenin g Completed 201305/23/2020 Screenin g examinat ion for venereal disease; Practice ID: 0001 Jenn Solano MD [address], [place], [address], [facility] 0 16:44:40 Amenorrh ea 20959227 Completed 201405/23/2020 AMENORRH EA;Pract ice ID: 0001 Jenn Solano MD [address], [place], [address], [facility] 0 16:43:25 Pregnanc y test negative 933226089 Completed 201405/23/2020 Negative Pregnanc y Test;Pra ctice ID: 0001 Jenn Solano MD [address], [place], [address], [facility] 0 16:44:08 Female genital organ symptoms 314046247 Completed 201405/23/2020 Pelvic Pain;Pra ctice ID: 0001 Jenn Solano MD [address], [place], [address], [facility] 0 16:43:42 Leukorrh ea 033624670 Completed 201405/23/2020 Leukorrh ea, not specifie d as infectiv e;Practi ce ID: 0001 Jenn Solano MD [address], [place], [address], [facility] 0 16:44:00 Fever 248417538 Completed 201405/23/2020 FEVER NOS;Prac dorothy ID: 0001 Jenn Solano MD [address], [place], [address], [facility] 0 16:43:49 Nausea 978547066 Completed 201405/23/2020 Nausea alone;Pr actice ID: 0001 Jenn Solano MD [address], [place], [address], [facility] 0 16:44:03 Adult health examinat ion Completed 201405/23/2020 Routine general medical examinat ion at a health care facility ;Practic e ID: 0001 Jenn Solano MD [address], [place], [address], [facility] 0 16:43:27 Sexually transmit robby infectio us disease 4134505 Completed 201402/05/2021 Venereal disease, unspecif ied;Prac dorothy ID: 0001 Galileaashley willard, [facility] 1 10:29:40 Vaginola bial hernia Completed 201405/23/2020 Other specifie d noninfla mmatory disorder s of vagina;P ractice ID: 0001 Jenn Solano MD [address], [place], [address], [facility] 0 16:44:36 Pelvic and perineal pain 701660679 Completed 201405/23/2020 Pelvic and perineal pain;Pra ctice ID: 0001 Jenn Solano MD [address], [place], [address], [facility] 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 0 16:44:17 Educatio n Completed 201805/23/2020 Encounte r for other general counseli ng and advice on contrace ption;Re corded Elsewher e: No [facility] S ource: EHR Quality Control Clerk kwame: N Practi ce ID: 0001 Scott lable Time: 11:00:00 AM Jenn Solano MD [address], [place], [address], [facility] 0 16:43:35 Bleeding 380889064 Completed 201905/23/2020 Abnormal uterine bleeding ;Recorde d Elsewher e: No [facility] Quality Control Clerk kwame: N Practi ce ID: 0001 Scott lable Time: 10:15:00 AM Jenn Solano MD [address], [place], [address], [facility] 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 0 16:44:21 Increase d frequenc y of urinatio n 789904620 Completed 201705/23/2020 Frequenc y of micturit ion;Cosmo rded Elsewher e: No Locat ion: [facility] S ource: EHR Quality Control Clerk kwame: N Lyndsayti ce ID: 0001 Scott lable Time: 08:30:00 AM Jenn Solano MD [address], [place], [address], [facility] 0 16:43:57 Disorder of breast 82473355 Completed 201605/23/2020 Disorder of breast, unspecif ied;Cosmo rded Elsewher e: No Locat ion: [facility] S ource: EHR Quality Control Clerk kwame: N Practi ce ID: 0001 Scott lable Time: 09:30:00 AM Jenn Solano MD [address], [place], [address], [facility] 0 16:43:32 Finding of regulari ty of menstrua l cycle Completed 201905/23/2020 Irregula r menstrua tion, unspecif ied;Cosmo rded Elsewher e: No [facility]: E[facility] Quality Control Clerk kwame: N Lyndsayti ce ID: 0001 Scott lable Time: 09:30:00 AM MD [address], [place], [address], [facility] [address] 16:43:[address] Concept Completed 201405/23/2020 Encntr for general adult medical exam w/o abnormal findings ;Recorde d Elsewher e: No Locat ion: [facility] S ource: EHR Quality Control Clerk kwame: N Lyndsayti ce ID: 0001 Scott lable Time: 09:45:00 AM Jenn Solano MD [address], [place], [address], [facility] 0 16:44:12 Urinary tract infectio us disease 01489586 Completed 201705/23/2020 Urinary tract infectio n, site not specifie d;Record ed Elsewher e: No Locat ion: [facility] S ource: EHR Quality Control Clerk kwame: N Montez ce ID: 0001 Scott lable Time: 08:30:00 AM Jenn Solano MD [address], [place], [address], [facility] 0 16:44:30 Atypical squamous cells of undeterm ined signific ance on cervical Papanico laou smear 873547118 Completed 201712/17/2021 Irma Lanier [facility] 2 11:49:39 Acute vaginiti s 72274280 Completed 201705/23/2020 Acute vulvovag initis;R ecorded Elsewher e: No [facility]: EHR Quality Control Clerk kwame: N Montez ce ID: 0001 Scott lable Time: 08:30:00 AM Jenn Solano MD [address], [place], [address], [facility] 0 16:43:22 Evaluati on finding Completed 201705/23/2020 Hematuri a, unspecif ied;Cosmo rded Elsewher e: No Locat ion: [facility] S ource: EHR Quality Control Clerk kwame: N Practi ce ID: 0001 Scott lable Time: 08:30:00 AM Jenn Solano MD [address], [place], [address], [facility] 0 16:43:38 Herpes simplex 93082786 Completed 201512/17/2021 Irma Lanier [facility] 2 11:49:39 Atypical squamous cells on cervical Papanico laou smear cannot exclude high grade squamous intraepi thelial lesion 526536166 Completed 201802/05/2021 Galilea Power [facility] 1 10:41:03 Abnormal uterine bleeding 7808904679 9100 Completed 201802/05/2021 Other specifie d abnormal uterine and vaginal bleeding ;Practic e ID: 0001 Galilea Tono [facility] 1 10:29:37 Problem Notes None recorded. Procedures Surgical History Date Name Laterality Status Provider Name and Address Organization Details Recorded Time 024 Date of Last [facility] 17:17:49 022 thumb surgery completed Sherriemat Blankenship [facility] 01/15/2024 12:37:08 022 [facility]idectomy [facility] 01/15[facility]2024 12:36:55 021 Date of Last Colonoscopy completed Irma Lanier [facility] 12/17/2021 12:03:00 021 Colonoscopy completed Sherrie Krzysztof [facility] 01/15/2024 12:36:43 021 procedure on wrist completed Sherrie Jamestz [facility] 01/15/2024 12:37:03 Imaging Results Imaging Date Name Status LastModified by Organiz ation Details LastModified Time 07/28/2024 US, obstetric, biophysical profile + non-stress test active [facility] [address], [place], [address], 07/28/2024 13:06:01 Procedure Notes None recorded. Medical Equipment None Reported. Allergies Allergen ID Allergen Name Allergen Category Reaction Reaction Severity Criticality Documentation Date Start Date Code Code System Note Provider Name and Address Organization Details Recorded Time 573 cefdinir medicatio n Not available Not available Not available 10/06/2019 29147 RxNorm Gayatri Chong [facility] 0 11:50:55 574 Product containin g cephalosp lidia (product) medicatio n Not available Not available Not available 10/06/2019 77935 9009 SNOMED Gayatri Chong [facility] 0 11:51:08 575 citalopra m medicatio n Not available Not available Not available 10/06/2019 2556 RxNorm cital opram hydro bromi de Gayatri Chong [facility] 0 11:51:56 576 Product containin g penicilli n (product) medicatio n Not available Not available Not available 10/06/2019 15574 8001 SNOMED Gayatri Chong [facility] [...] Not Available azithromy cricket 250 mg tablet TAKE 2 TABLETS (500 MG) BY ORAL ROUTE ONCE DAILY FOR 1 DAY THEN 1 TABLET (250 MG) BY ORAL ROUTE ONCE DAILY FOR 4 DAYS active Not Available Not Available No t Available tizanidin e 4 mg tablet TAKE 1 TABLET BY MOUTH THREE TIMES DAILY NEEDED FOR MUSCLE SPASMS 01/13 completed Not Available Not Available Not Available Loestrin Fe 06/14 (28-Day) 1 mg-20 mcg (21)/75 mg (7) tablet take 1 tablet by oral route every day 06/15 completed Prescrib ed Elsewher e: No Locat ion: [facility] odify By: cfrieder ich Enco unter DateTime [...] Prescrib ed Elsewher e: Yes Loca tion: [facility] odify By: [email or web address] trick En counter DateTime : 06/30/19 15 02:30:00 PM Not Available Not Available Not Available metronida zole 500 mg tablet 06/10 completed Not Available Not Available Not Available valacyclo vir 500 mg tablet Take 1 tablet twice a day by oral route as directed for 3 days, for and take 1 tablet daily after until delivery 08/24/24. active Not Available Not Available No t Available sulfameth oxazole 800 mg-trimet hoprim 160 [...] Prescrib ed Elsewher e: No Locat ion: [facility] odify By: [email or web address] trick En counter DateTime : 12/20/19 15 10:37:18 AM Not Available Not Available Not Available Diflucan 50 mg tablet take 2 tablet by oral route every day 01/12 completed Prescrib ed Elsewher e: Yes Loca tion: [facility] odify By: [email or web address] trick En counter DateTime : 12/15/19 15 09:00:00 AM Not Available Not Available Not Available Loestrin 06/14 (21) 1 mg-20 mcg tablet take 1 tablet by oral route every day 11/25 completed Prescrib ed Elsewher e: No Locat ion: [facility]ify By: bchamariah koch DateTime : 11/04/19 03:55:59 PM Not Available Not Available Not Available Valtrex 1 gram tablet take 1 tablet by oral route every 24 hours 05/23 completed Prescrib ed Elsewher e: No Locat ion: [facility] odify By: lissette tz Danyel ntbrady DateTime : 02/17/20 10:30:00 AM Not Available [...] Elsewher e: No Locat ion: [facility] odify By: fabiola lee DateTime : 10/29/19 [...] Elsewher e: Yes Loca tion: [facility] odify By: [email or web address] torie willis DateTime : 12/17/19 15 02:35:38 PM Not Available Not Available Not Available Zithromax 500 mg tablet Take 2 pills all at once by oral route 01/12 completed Prescrib ed Elsewher e: No Locat ion: [facility] odify By: [email or web address] trick En counter DateTime [...] Elsewher e: Yes Loca tion: [facility] odify By: kmkirkpa trick En counter DateTime : 12/15/19 15 09:00:00 AM Not Available Not Available Not Available Lexapro 5 mg tablet take 1 tablet by oral route every day 05/23 completed Prescrib ed Elsewher e: Yes [facility] By: [email or web address] z Encoun ter DateTime : 02/17/20 19 10:30:00 AM Not Available Not Available Not Available Ritalin LA 10 mg capsule,e xtended release take 1 capsule by oral route every day in the morning 05/23 completed Prescrib ed Elsewher e: Yes [facility] By: [email or web address] E ncounter DateTime : 06/01/19 03:30:00 PM [...] Elsewher e: No Locat ion: [facility] odify By: lissette aranda Encou nter DateTime : 02/17/20 10:30:00 AM Not Available Not Available Not Available B12 5,000 mcg-100 mcg sublingua l lozenge 05/23 completed Prescrib ed Elsewher e: Yes Loca tion: [facility] odify By: padmaja stahlunter DateTime : 06/01/19 03:30:00 PM Not Available Not Available Not Available ProChambe r USE DIRECTED 07/24 completed Not Available Not Available Not Available Gynazole- 1 2 % vaginal cream insert 1 applicat orful by vaginal route once 06/15 completed Prescrib ed Elsewher e: No Locat ion: [facility] odify By: david ich Enco unter DateTime : 02/19/20 01:26:20 PM Not Available Not Available Not Available Nasacort 55 mcg nasal spray aerosol 05/23 completed Prescrib ed Elsewher e: Yes Loca tion: [facility] odify By: padmaja Teixeira ncounter DateTime : [...] height Systolic blood pressure Diastolic blood pressure Systolic blood pressure Diastolic blood pressure Provider Name and Address Organization Details Last Updated DateTime 5 30493.4 3585 g 33.6 kg/m2 166.37 cm 155 mm[Hg] 101 mm[Hg] 160 mm[Hg] 108 mm[Hg] Sherrie Blankenship [facility] 5 13:14:30 Social History Question Answer Notes LastModified by Organizat ion Details LastModified Time Tobacco Smoking Status Never Smoker Naila willard, [facility] 06/04/2023 09:52:40 Do You Have An Advance Directive? No [email or web address] Information n ot available 02/05/2021 What Is Your Level Of Alcohol Consumption? None [email or web address] Information not available 01/14/2024 If You Are , What Was Your Level Of Alcohol Consumption Prior To ? Occasional [email or web address] Information not available 01/14/2024 Are You Blind Or Do You Have Difficulty Seeing? No [email or web address] Information n ot available 02/05/2021 What Is Your Level Of Caffeine Consumption? Moderate Information not available 12/17/2021 How Much Tobacco Do You Chew? None [email or web address] Information not available 02/05/2021 In The 14 Days Before Symptom Onset, Have You Had Close Contact With A Laboratory-confirm ed COVID-19 While That Case Was Ill? No [email or web address] Information n ot available 02/05/2021 In The 14 Days Before Symptom Onset, Have You Had Close Contact With A Person Who Is Under Investigation For COVID-19 While That Person Was Ill? No [email or web address] Information not available 02/05/2021 Have You Been To An Area Known To Be High Risk For COVID-19? No [email or web address] Information not available 02/05/2021 Are You Deaf Or Do You Have Serious Difficulty Hearing? No [email or web address] Information not available 02/05/2021 What Type Of Diet Are You Following? REGULAR [email or web address] Information n ot available 02/05/2021 What Is The Highest Grade Or Level Of School You Have Completed Or The Highest Degree You Have Received? [id number] [email or web address] Information not available 02/05/2021 Are There Any Guns Present In Your Home? No Information not available 02/05/2021 Do You Use Protection During Sex? No Information not available 12/17/2021 Do You Use Your Seat Belt Or Car Seat Routinely? Yes Information not available 02/05/2021 Are You Sexually Active? Yes [email or web address] Information not available 06/10/2024 Do You Have Smoke And Carbon Monoxide Detectors In Your Home? No [email or web address] Information not available 02/05/2021 How Much Tobacco Do You Smoke? No [email or web address] Information not available 02/05/2021 Do You Feel Stressed (tense, Restless, Nervous, Or Anxious, Or Unable To Sleep At Night)? [id number] [email or web address] Information not available 02/05/2021 Do You Use Any Illicit Or Recreational Drugs? No [email or web address] Information not available 02/05/2021 Do You Use Sunscreen Routinely? No [email or web address] Information not available 02/05/2021 Have You Used IV Drugs? No Information not available 02/05/2021 Sex: Unknown Functional Status Question Answer Note LastModified by Organizat ion Details LastModified Time Do you have difficulty walking or climbing stairs? No [email or web address] Information not available 06/04/2023 Are you able to walk? [email or web address] Information not available 02/05/2021 Are you able to care for yourself? Yes [email or web address] Information not available 06/04/2023 Do you have difficulty dressing or bathing? No [email or web address] Information not available 06/04/2023 What is your exercise level? Occasional [email or web address] Information not available 02/18/2024 Mental Status None recorded. Family History Relationship Description Onset Age of this Age Resolved Age Notes LastModified by Organization Details LastModified Time Mother Asthma [email or web address] Not available 12:02:56 Mother Diabetes mellitus [email or web address] Not available 2019 11:52:51 Mother Hypertensive disorder [email or web address] Not available 2019 11:53:19 Mother Female infertility [email or web address] Not available 11:42:30 Mother Cyst of ovary [email or web address] Not available 09/2024 11:42:30 Mother Polycystic ovary syndrome [email or web address] Not available 09/2024 11:42:30 Mother Anxiety disorder [email or web address] Not available 2020 10:34:10 Mother Mental disorder [email or web address] Not available 2020 10:34:10 Mother Depressive disorder [email or web address] Not available 2021 12:02:56 Mother Heart disease [email or web address] Not available 2021 12:02:56 Mother Myocardial infarction Not available 12/25 12:37:37 Maternal Grandmother Hypertensive disorder [email or web address] Not available 2019 11:53:19 Father Hypertensive disorder [email or web address] Not available 2019 11:53:19 Maternal Grandfather Family history of blood coagulation disorder [email or web address] Not available 09/2024 11:42:30 Paternal Grandmother Depressive disorder [email or web address] Not available [...] SNOMED-CT Code Diagnosis ICD10 Code Diagnosis Note [id number] Janice Lanier [facility] [address] [address] 07/07/2024 09:24:38 07/07/2024 10:06:57 Placenta circumvallata 0017219 O43.113 Z3A.33 [id number] Katherin Hammond [facility] [address] [place] [address] 07/07/2024 09:24:57 07/07/2024 10:26:33 Gestation period, 33 weeks 10539996 Z3A.33 [id number] Katherin Hammond [facility] [address] [place] [address] 07/16/2024 09:43:14 07/16/2024 10:06:11 Gestation period, 34 weeks 01535650 Z3A.34 [id number] Katherin Hammond [facility] [address] [place] [address] 07/23/2024 11:43:30 07/23/2024 12:37:39 screening 186645052 Z36.85 - induced hypertension 92274273 O13.9 Gestation period, 35 weeks 46487298 Z3A.35 [id number] Sherrie Blankenship [facility] [address],[place] [address] 07/23/2024 18:00:14 07/26/2024 02:46:21 -induced hypertension 23983672 O13.9 [id number] Sofia Wakefield [facility] [address] [address] 07/28/2024 11:43:02 07/28/2024 13:33:13 Chronic hypertension complicating AND/OR reason for care during 40002917 O16.3 Z3A.36 [id number] Katherin Hammond [facility] [address] [address] 07/28/2024 11:43:24 07/28/2024 14:09:14 Gestation period, 36 weeks 81893964 Z3A.36 Health Concerns Section Related Observation LastModified by Organization Detai ls LastModified Time None Recorded Concern Status LastModified by Organization Details LastModified Time None Recorded Payers Encounter Date Sequence Insurance Name Policy Number Policy Ellison Covered Member ID Ellison Member ID Guarantor Name 07/28/2024 1 [facility] [id number] Ira Apple [id number] Ira Apple OBGyn Episode Ob Episode Information Episode Created Date Number of Fetuses Patient Bloodtype Patient rh Status Prepregnancy Weight lbs Domestic Partner Domestic Partner Phone 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 Status 02/18/20 24 1 A Positive 153 OPEN Fetus Data First Name Last Name Admitted to NICU Weight (g) Sex Living Outcome Pediatric Complications Fetus ID Race Codes Race Delivery Type [id number] Problems Problem Notes Checking BS x 2 wk07/19/2024 referral to cardiology for chest pain and shortness of breathe had holter monitor done Cardiolgy consult scheduled Dr Nicholson 08/02/24 1030 Problem Name Start Date End Date Resolution Snomed Code Not e Blood glucose outside reference range 808978539 decided on 3 hr gtt sced 06/17 Mixed anxiety and depressive disorder 015784305 no curre nt meds Hemorrhoidectomy 91611263 202 2 with colonoscopy Placenta previa marginalis 27603917 resolved -induced hypertension 92307749 37wk delivery , testing Herpes simplex 59017600 on bl ood test, plan 36 week valtrex, as a precaution2/4 Outbreak Valtrex 500mg BID x3 days , followed by daily suppression until delivery Attention deficit hyperactivity disorder 096170520 no cu rrent meds Alber Calculation Initial [...] Type Weight in lbs Pre/Post Dialysis Refused 158.354618968168 BP Diastolic BP Location Tested BP Systolic BP Type 93 125 Fetus Heart Rate Present Fetus Movement A No Comments reviewed history, no current medications, moving from [place] to [place] this weekend with FOB, doing well, some stress after told family about , reviewed US, blood work complete, ok for flu and covid, start routine care Flowsheet Date 03/17/2024 Nunez Score Blood Edema Fundus Height Fundus Units Glucose Ketones Leukocytes Nitrite Labor Signs Protein Cervic Dilation Cervic Effacement Cervic Station none Type Weight in lbs Pre/Post Dialysis Refused 167.927426847494 BP Diastolic BP Location Tested BP Systolic [...] Weight in lbs Pre/Post Dialysis Refused Weight 168.546508862168 BP Diastolic BP Location Tested BP Systolic BP Type 85 L arm 126 sitting Fetus Heart Rate Present Fetus Movement Comments Flowsheet Date 03/31/2024 Nunez Score Blood Edema Fundus Height Fundus Units Glucose Ketones Leukocytes Nitrite Labor Signs Protein Cervic Dilation Cervic Effacement Cervic Station Type Weight in lbs Pre/Post Dialysis Refused Weight 168.046991792668 BP Diastolic BP Location Tested BP Systolic [...] Type Weight in lbs Pre/Post Dialysis Refused 171.130432466566 BP Diastolic BP Location Tested BP Systolic [...] Type Weight in lbs Pre/Post Dialysis Refused 182.127425349249 BP Diastolic BP Location Tested BP Systolic [...] Weight in lbs Pre/Post Dialysis Refused Weight 193.742625329148 BP Diastolic BP Location Tested BP Systolic [...] Type Weight in lbs Pre/Post Dialysis Refused 196.652492201611 BP Diastolic BP Location Tested BP Systolic BP Type 87 139 Fetus Heart Rate Present Fetus Movement A Yes Comments bp elevated last night with chest tightness, had this 2 years ago had echo and cardiac workup all was negative, went away and now back only at hs, feels fine now, will plan monitoring analyst. passed 3 hr GCTnormotensive today, +FM precautions and education f/u 2 weeks Flowsheet Date 06/28/2024 Nunez Score Blood Edema Fundus Height Fundus Units Glucose Ketones Leukocytes Nitrite Labor Signs Protein Cervic Dilation Cervic Effacement Cervic Station Type Weight in lbs Pre/Post Dialysis Refused BP Diastolic BP Location Tested BP Systolic BP Type Fetus Heart Rate Present Fetus Movement Comments Flowsheet Date 07/07/2024 Nunez Score Blood Edema Fundus Height Fundus Units Glucose Ketones Leukocytes Nitrite Labor Signs Protein Cervic Dilation Cervic Effacement Cervic Station Type Weight in lbs Pre/Post Dialysis Refused BP Diastolic BP Location Tested BP Systolic BP Type Fetus Heart Rate Present Fetus Movement Comments Flowsheet Date 07/07/2024 Nunez Score Blood Edema Fundus Height Fundus Units Glucose Ketones Leukocytes Nitrite Labor Signs Protein Cervic Dilation Cervic Effacement Cervic Station neg trace Type Weight in lbs Pre/Post Dialysis Refused 198.569384502848 BP Diastolic BP Location Tested BP Systolic BP Type 92 130 Fetus Heart Rate Present Fetus Movement A Yes Comments Patient is having some bh co ntractions, had some bleeding the other day and swelling. US wnl, efw 32%, no bleeding today, continue to monitor, +FM, had Tdap is planning on rsv, call for preadmit, precautions and education Flowsheet Date 07/16/2024 Nunez Score Blood Edema Fundus Height Fundus Units Glucose Ketones Leukocytes Nitrite Labor Signs Protein Cervic Dilation Cervic Effacement Cervic Station neg trace Type Weight in lbs Pre/Post Dialysis Refused 205.895448173392 BP Diastolic BP Location Tested BP Systolic BP Type 85 127 Fetus Heart Rate Present Fetus Movement A Yes Comments Patient is having increased swelling. 2+ , bp normotensive +FM, denies mondragon, visual changes, epigastric pain, precautions reviewed, check labs f/u one week Flowsheet Date 07/23/2024 Nunez Score Blood Edema Fundus Height Fundus Units Glucose Ketones Leukocytes Nitrite Labor Signs Protein Cervic Dilation Cervic Effacement Cervic Station neg trace Type Weight in lbs Pre/Post Dialysis Refused 202.018142894600 BP Diastolic BP Location Tested BP Systolic BP Type 93 132 Fetus Heart Rate Present Fetus Movement A Yes Comments Patient is having back pain and swelling. discussed GHTN delivery between 37-38 weeks, weekly labs, us and nst next week, precautions, denies current mondragon, visual changes, epigastric pain NST today Flowsheet Date 07/23/2024 Nunez Score Blood Edema Fundus Height Fundus Units Glucose Ketones Leukocytes Nitrite Labor Signs Protein Cervic Dilation Cervic Effacement Cervic Station Type Weight in lbs Pre/Post Dialysis Refused Weight 202.916664299863 BP Diastolic BP Location Tested BP Systolic BP Type 93 132 Fetus Heart Rate Present Fetus Movement Comments Flowsheet Date 07/28/2024 Nunez Score Blood Edema Fundus Height Fundus Units Glucose Ketones Leukocytes Nitrite Labor Signs Protein Cervic Dilation Cervic Effacement Cervic Station Type Weight in lbs Pre/Post Dialysis Refused BP Diastolic BP Location Tested BP Systolic BP Type Fetus Heart Rate Present Fetus Movement Comments Flowsheet Date 07/28/2024 Nunez Score Blood Edema Fundus Height Fundus Units Glucose Ketones Leukocytes Nitrite Labor Signs Protein Cervic Dilation Cervic Effacement Cervic Station Type Weight in lbs Pre/Post Dialysis Refused BP Diastolic BP Location Tested BP Systolic BP Type Fetus Heart Rate Present Fetus Movement Comments Flowsheet Date 07/28/2024 Nunez Score Blood Edema Fundus Height Fundus Units Glucose Ketones Leukocytes Nitrite Labor Signs Protein Cervic Dilation Cervic Effacement Cervic Station neg trace Type Weight in lbs Pre/Post Dialysis Refused 205.452782729797 BP Diastolic BP Location Tested BP Systolic BP Type 101 155 108 160 Fetus Heart Rate Present Fetus Movement A Yes Comments Patient has had some pain an d back pain and swelling. denies mondragon, visual changes, epigastric pain to LD for evaluation Menstrual History Last Menstrual Date Menses Monthly [...]
--- OUTSIDE RECORDS SUMMARY | 2024-07-28 13:47 | XMS_ITS | Clinical Summary ---
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 Care Teams Nuclear Test Technician Relationship Specialty Start Date End Date Vikash Ibarra MD [address] [address] PCP - General Family Medicine 02/23/21 Sami Andersen MD [address] [facility] [address] [place] [address] Colon & Rectal Surgery 02/23/21
--- OUTSIDE RECORDS SUMMARY | 2024-07-28 13:48 | XMS_ITS | Encounter Summary ---
Author Organization [facility] Address [facility] [place] [address] Care Team Providers Care Cashier Manager Name Role Phone Vikash Ibarra MD Primary Care Provider [phone] Encounter Details Date Type Department Care Team (Late st Contact Info) Description 04/26/2022 imgix Message Enc [facility] General Surgery - [address], [address] [place] [address] Sami Andersen MD [address] [id number] Question Social History Tobacco Use Types Packs/Day [...] on filedocumented in this encounter Care Teams Cashier Manager Relationship Specialty Start Date End Date Vikash Ibarra MD [address] [place] [address] [address] [place] [address] PCP - General FAMILY PRACTICE 02/08/21 documented as of this encounter
--- OUTSIDE RECORDS SUMMARY | 2024-07-28 13:48 | XMS_ITS | Data Portability ---
Author Organization [facility] Address [address] [place] [address] Care Team Providers Care Snowmaker Name Role Phone ROSE LAROSE Primary Care Provider [phone] Assessment Encounter Date Assessment Date Assessment LastModified by Organization Details LastModified Time 07/23/2024 07/23/2024 Patient is _35__weeks . Discussed plan. [email or web address] Not available 07/23/2024 12:33:48 07/28/2024 07/28/2024 Patient is __36_weeks . Discussed plan. Not available 07/28/2024 14:05:05 Plan of Treatment Reminders Order Date Submit [...] available OB ROUTINE 2024 09:45A M Katherin Hammond, CNM Not available Not available Not available U/S OB BPP 2024 09:00A M ULTRASOUND Not available Not available Not available NST 2024 09:30A M NST SCHEDULE Not available Not available Not available OB ROUTINE 2024 09:45A M Katherin Hammond, CNM Not available Not available Not available OB ROUTINE 2024 09:15A M Katherin Hammond, CNM Not available Not available Not available Lab CBC w/ auto diff 2024 025 [facility] (Lab), [address], [place], [address], 07/26/2024 15:08:34 CMP, serum or plasma 2024 025 [facility] (Lab), [address], [place], [address], 07/26/2024 15:08:34 uric acid, serum or plasma 2024 025 [facility] (Lab), [address], [place], [address], 07/26/2024 15:08:34 protein :creati nine ratio, urine 2024 025 [facility] (Lab), [address], [place], [address], 07/26/2024 15:08:35 strepto coccus group B, culture , unspeci fied specime n 2024 025 [facility] (Lab), [address], [place], [address], 07/26/2024 15:08:35 Referral None recorde d. Procedures None recorde d. Surgeries None recorde d. Imaging US, obstetr ic, biophys ical profile + non-str ess test [address], [address], [address], [place], [address], 07/28/2024 13:33:13 non-str ess test 2024 025 [email or web address] [address], [address], [place], [address], 07/23/2024 18:06:31 Medication Orders None recorde d. Patient TargetsNo targets recorded. Patient InstructionsNo instructions recorded. Reason for Referral None Reported. Results Created Date Observation Date Name Description Value Unit Range Abnormal Flag Note LastModifiedBy Organization Detail LastModifiedTime 07/16/1907/16/2024 CBC W/DIF F WBC 9.8 10'3/ uL 3.5-10 .5 Not Available [facility] (Lab) [address], [place], [address], 07/18/2024 23:59:14 07/16/19 25 07/16/2024 CBC W/DIF F RBC 3.66 10'6/ uL (based on docume nted legal sex) 3.80-5 .20 low Not Available [facility] (Lab) [address], [place], [address], 07/18/2024 23:59:14 07/16/19 25 07/16/2024 CBC W/DIF F HGB 11.2 g/dL (based on docume nted legal sex) 11.6-1 5.4 low Not Available [facility] (Lab) [address], [place], [address], 07/18/2024 23:59:14 07/16/19 25 07/16/2024 CBC W/DIF F HCT 34.5 % (based on docume nted legal sex) 34.0-4 5.0 Not Available [facility] (Lab) [address], [place], [address], 07/18/2024 23:59:14 07/16/19 25 07/16/2024 CBC W/DIF F MCV 94.3 fL 80.0-9 9.0 Not Available [facility] (Lab) [address], [place], [address], 07/18/2024 23:59:14 07/16/19 25 07/16/2024 CBC W/DIF F MCH 30.6 pg 27.0-3 4.0 Not Available [facility] (Lab) [address], [place], [address], 07/18/2024 23:59:14 07/16/19 25 07/16/2024 CBC W/DIF F MCHC 32.5 g/dL 32.0-3 5.5 Not Available [facility] (Lab) [address], [place], [address], 07/18/2024 23:59:14 07/16/19 25 07/16/2024 CBC W/DIF F RDW 13.2 % 11.0-1 5.0 Not Available [facility] (Lab) [address], [place], [address], 07/18/2024 23:59:14 07/16/19 25 07/16/2024 CBC W/DIF F plt 254 10'3/ uL 150-40 0 Not Available [facility] (Lab) [address], [place], [address], 07/18/2024 23:59:14 07/16/19 25 07/16/2024 CBC W/DIF F MPV 10.5 fL 8.8-12 .1 Not Available [facility] (Lab) [address], [place], [address], 07/18/2024 23:59:14 07/16/19 25 07/16/2024 CBC W/DIF F neutrophils 74.0 % 34.0-7 3.0 high Not Available [facility] (Lab) [address], [place], [address], 07/18/2024 23:59:14 02/21/20 25 07/16/2024 CBC W/DIF F lymphocytes 11.9 % 15.0-5 0.0 low Not Available [facility] (Lab) [address] [facility], [place], [address], 07/18/2024 23:59:14 07/16/19 25 07/16/2024 CBC W/DIF F monocytes 9.0 % 1.0-15 .0 Not Available [facility] (Lab) [address] [facility], [place], [address], 07/18/2024 23:59:14 07/16/19 25 07/16/2024 CBC W/DIF F eosinophils 3.8 % 0.0-8. 0 Not Available [facility] (Lab) [address] [facility], [place], [address], 07/18/2024 23:59:14 07/16/19 25 07/16/2024 CBC W/DIF F basophils 0.6 % 0.0-2. 0 Not Available [facility] (Lab) [address] [facility], [place], [address], 07/18/2024 23:59:14 07/16/19 25 07/16/2024 CBC W/DIF F immature granulocytes 0.7 % no define d refere nce range Immat ure Granu locyt es (IG) repre sents autom ated enume ratio n of Metam yeloc ytes, Myelo cytes and Promy elocy paulette when IG is < 5%. Blast s are not inclu ded in IG and repor robby separ ately if prese nt. Not Available [facility] (Lab) [address] [facility], [place], [address], 07/18/2024 23:59:14 07/16/19 25 07/16/2024 CBC W/DIF F absolute neutrophils 7.2 10'3/ uL 1.5-8. 0 Not Available [facility] (Lab) [address], [place], [address], 07/18/2024 23:59:14 07/16/19 25 07/16/2024 CBC W/DIF F absolute lymphocytes 1.2 10'3/ uL 1.0-4. 0 Not Available [facility] (Lab) [address], [place], [address], 07/18/2024 23:59:14 07/16/19 25 07/16/2024 CBC W/DIF F absolute monocytes 0.9 10'3/ uL 0.2-1. 0 Not Available [facility] (Lab) [address], [place], [address], 07/18/2024 23:59:14 07/16/19 25 07/16/2024 CBC W/DIF F absolute eosinophils 0.4 10'3/ uL 0.0-0. 6 Not Available [facility] (Lab) [address], [place], [address], 07/18/2024 23:59:14 07/16/19 25 07/16/2024 CBC W/DIF F absolute basophils 0.1 10'3/ uL 0.0-0. 3 Not Available [facility] (Lab) [address], [place], [address], 07/18/2024 23:59:14 07/16/19 25 07/16/2024 CBC W/DIF F absolute immature granulocytes 0.1 10'3/ uL 0.00-0 .10 Refer ence range s for nonbi nary/ inter sex or unspe cifie d gende r patie nts have not been estab lishe d. Pleas e refer to the follo wing table for range s estab lishe d for cisge nder patie nts and evalu ate in the clini ned azeem xt of the indiv idual patie nt: https ://landon joyner book. nm.or g/gen derx Not Available [facility] (Lab) [address], [place], [address], 07/18/2024 23:59:14 07/16/19 25 07/16/2024 CMP(C OMPRE HENSI VE METAB OLIC PANEL ) sodium 137 mmol/ L 133-14 6 Not Available [facility] (Lab) [address] [facility], [place], [address], 07/18/2024 23:59:15 07/16/19 25 07/16/2024 CMP(C OMPRE HENSI VE METAB OLIC PANEL ) potassium 4.1 mmol/ L 3.5-5. 1 Not Available [facility] (Lab) [address] [facility], [place], [address], 07/18/2024 23:59:15 07/16/19 25 07/16/2024 CMP(C OMPRE HENSI VE METAB OLIC PANEL ) chloride 105 mmol/ L 98-107 Not Available [facility] (Lab) [address] [facility], [place], [address], 07/18/2024 23:59:15 07/16/19 25 07/16/2024 CMP(C OMPRE HENSI VE METAB OLIC PANEL ) carbon dioxide 23 mmol/ L 21-31 Not Available [facility] (Lab) [address] [facility], [place], [address], 07/18/2024 23:59:15 07/16/19 25 07/16/2024 CMP(C OMPRE HENSI VE METAB OLIC PANEL ) anion gap 9 mmol/ L 4-13 Not Available [facility] (Lab) [address] [facility], [place], [address], 07/18/2024 23:59:15 07/16/19 25 07/16/2024 CMP(C OMPRE HENSI VE METAB OLIC PANEL ) blood urea nitrogen 5 mg/dL 7-25 low Not Available [facility] (Lab) [address] [facility], [place], [address], 07/18/2024 23:59:15 07/16/19 25 07/16/2024 CMP(C OMPRE HENSI VE METAB OLIC PANEL ) creatinine 0.52 mg/dL 0.60-1 .30 low Not Available [facility] (Lab) [address] [facility], [place], [address], 07/18/2024 23:59:15 07/16/19 25 07/16/2024 CMP(C OMPRE HENSI VE METAB OLIC PANEL ) egfrcr (CKD-epi 2020) >90 mL/mi n/1.7 3_m2 >=60 Not Available [facility] (Lab) [address] [facility], [place], [address], 07/18/2024 23:59:15 07/16/19 25 07/16/2024 CMP(C OMPRE HENSI VE METAB OLIC PANEL ) calcium 8.9 mg/dL 8.3-10 .5 Not Available [facility] (Lab) [address] [facility], [place], [address], 07/18/2024 23:59:15 07/16/19 25 07/16/2024 CMP(C OMPRE HENSI VE METAB OLIC PANEL ) glucose 75 mg/dL 70-100 Not Available [facility] (Lab) [address] [facility], [place], [address], 07/18/2024 23:59:15 07/16/19 25 07/16/2024 CMP(C OMPRE HENSI VE METAB OLIC PANEL ) protein, total 6.0 g/dL 6.4-8. 3 low Not Available [facility] (Lab) [address] [facility], [place], [address], 07/18/2024 23:59:15 07/16/19 25 07/16/2024 CMP(C OMPRE HENSI VE METAB OLIC PANEL ) albumin 3.4 g/dL 3.5-5. 0 low Not Available [facility] (Lab) [address] [facility], [place], [address], 07/18/2024 23:59:15 07/16/19 25 07/16/2024 CMP(C OMPRE HENSI VE METAB OLIC PANEL ) ALT 11 units /L 9-43 Not Available [facility] (Lab) [address] [facility], [place], [address], 07/18/2024 23:59:15 07/16/19 25 07/16/2024 CMP(C OMPRE HENSI VE METAB OLIC PANEL ) alkaline phosphatase 81 units /L 34-104 Not Available [facility] (Lab) [address] [facility], [place], [address], 07/18/2024 23:59:15 07/16/19 25 07/16/2024 CMP(C OMPRE HENSI VE METAB OLIC PANEL ) AST 12 units /L 13-39 low Not Available [facility] (Lab) [address] [facility], [place], [address], 07/18/2024 23:59:15 07/16/19 25 07/16/2024 CMP(C OMPRE HENSI VE METAB OLIC PANEL ) bilirubin, total 0.3 mg/dL 0.2-1. 2 Not Available [facility] (Lab) [address] [facility], [place], [address], 07/18/2024 23:59:15 07/16/19 25 07/16/2024 URIC ACID uric acid 3.6 mg/dL 2.3-6. 6 Not Available [facility] (Lab) [address] [place], [address], 07/18/2024 23:59:15 07/16/19 25 07/16/2024 PROTE IN/CR EATIN INE RATIO , URINE creatinine, urine 50.1 mg/dL R-No refer ence range estab lishe d for this assay Not Available [facility] (Lab) [address] [place], [address], 07/18/2024 23:59:15 07/16/19 25 07/16/2024 PROTE IN/CR EATIN INE RATIO , URINE protein, urine 11 mg/dL R-No refer ence range estab lishe d for this assay Not Available [facility] (Lab) [address] [place], [address], 07/18/2024 23:59:15 07/16/19 25 07/16/2024 PROTE IN/CR EATIN INE RATIO , URINE protein/crea tinine ratio, urine 0.22 . No Refer ence Range avail able for Rando m Urine s. A prote in to creat inine ratio of >=0.1 9 is a good predi ctor of signi fican t prote inuri a. A level of <0.14 can rule out signi fican t prote inuri a. Not Available [facility] (Lab) [address], [place], [address], 07/18/2024 23:59:15 07/23/19 25 07/23/2024 CBC W/DIF F WBC 9.9 10'3/ uL 3.5-10 .5 Not Available [facility] (Lab) [address], [place], [address], 07/26/2024 15:08:34 07/23/1907/23/2024 CBC W/DIF F RBC 3.95 10'6/ uL (based on docume nted legal sex) 3.80-5 .20 Not Available [facility] (Lab) [address], [place], [address], 07/26/2024 15:08:34 07/23/19 25 07/23/2024 CBC W/DIF F HGB 12.0 g/dL (based on docume nted legal sex) 11.6-1 5.4 Not Available [facility] (Lab) [address], [place], [address], 07/26/2024 15:08:34 07/23/1907/23/2024 CBC W/DIF F HCT 36.3 % (based on docume nted legal sex) 34.0-4 5.0 Not Available [facility] (Lab) [address], [place], [address], 07/26/2024 15:08:34 07/23/19 25 07/23/2024 CBC W/DIF F MCV 91.9 fL 80.0-9 9.0 Not Available [facility] (Lab) [address], [place], [address], 07/26/2024 15:08:34 07/23/19 25 07/23/2024 CBC W/DIF F MCH 30.4 pg 27.0-3 4.0 Not Available [facility] (Lab) [address], [place], [address], 07/26/2024 15:08:34 07/23/19 25 07/23/2024 CBC W/DIF F MCHC 33.1 g/dL 32.0-3 5.5 Not Available [facility] (Lab) [address], [place], [address], 07/26/2024 15:08:34 07/23/19 25 07/23/2024 CBC W/DIF F RDW 12.9 % 11.0-1 5.0 Not Available [facility] (Lab) [address], [place], [address], 07/26/2024 15:08:34 07/23/19 25 07/23/2024 CBC W/DIF F plt 269 10'3/ uL 150-40 0 Not Available [facility] (Lab) [address], [place], [address], 07/26/2024 15:08:34 07/23/19 25 07/23/2024 CBC W/DIF F MPV 10.3 fL 8.8-12 .1 Not Available [facility] (Lab) [address], [place], [address], 07/26/2024 15:08:34 07/23/19 25 07/23/2024 CBC W/DIF F neutrophils 73.6 % 34.0-7 3.0 high Not Available [facility] (Lab) [address], [place], [address], 07/26/2024 15:08:34 07/23/19 25 07/23/2024 CBC W/DIF F lymphocytes 13.4 % 15.0-5 0.0 low Not Available [facility] (Lab) [address] [facility], [place], [address], 07/26/2024 15:08:34 07/23/19 25 07/23/2024 CBC W/DIF F monocytes 9.3 % 1.0-15 .0 Not Available [facility] (Lab) [address] [facility], [place], [address], 07/26/2024 15:08:34 07/23/19 25 07/23/2024 CBC W/DIF F eosinophils 2.7 % 0.0-8. 0 Not Available [facility] (Lab) [address] [facility], [place], [address], 07/26/2024 15:08:34 07/23/19 25 07/23/2024 CBC W/DIF F basophils 0.5 % 0.0-2. 0 Not Available [facility] (Lab) [address] [facility], [place], [address], 07/26/2024 15:08:34 07/23/19 25 07/23/2024 CBC W/DIF F immature granulocytes 0.5 % no define d refere nce range Immat ure Granu locyt es (IG) repre sents autom ated enume ratio n of Metam yeloc ytes, Myelo cytes and Promy elocy paulette when IG is < 5%. Blast s are not inclu ded in IG and repor robby separ ately if prese nt. Not Available [facility] (Lab) [address] [facility], [place], [address], 07/26/2024 15:08:34 07/23/19 25 07/23/2024 CBC W/DIF F absolute neutrophils 7.3 10'3/ uL 1.5-8. 0 Not Available [facility] (Lab) [address] [facility], [place], [address], 07/26/2024 15:08:34 07/23/19 25 07/23/2024 CBC W/DIF F absolute lymphocytes 1.3 10'3/ uL 1.0-4. 0 Not Available [facility] (Lab) [address] [facility], [place], [address], 07/26/2024 15:08:34 07/23/19 25 07/23/2024 CBC W/DIF F absolute monocytes 0.9 10'3/ uL 0.2-1. 0 Not Available [facility] (Lab) [address] [facility], [place], [address], 07/26/2024 15:08:34 07/23/19 25 07/23/2024 CBC W/DIF F absolute eosinophils 0.3 10'3/ uL 0.0-0. 6 Not Available [facility] (Lab) [address] [facility], [place], [address], 07/26/2024 15:08:34 07/23/19 25 07/23/2024 CBC W/DIF F absolute basophils 0.1 10'3/ uL 0.0-0. 3 Not Available [facility] (Lab) [address] [facility], [place], [address], 07/26/2024 15:08:34 07/23/19 25 07/23/2024 CBC W/DIF F absolute immature granulocytes 0.1 10'3/ uL 0.00-0 .10 Refer ence range s for nonbi nary/ inter sex or unspe cifie d gende r patie nts have not been estab lishe d. Pleas e refer to the freddieo wing table for range s estab lishe d for cisge nder patie nts and evalu ate in the clini ned azeem xt of the indiv idual patie nt: https ://landon joyner book. nm.or g/gen derx Not Available [facility] (Lab) [address] [facility], [place], [address], 07/26/2024 15:08:34 07/23/19 25 07/23/2024 CMP(C OMPRE HENSI VE METAB OLIC PANEL ) sodium 136 mmol/ L 133-14 6 Not Available [facility] (Lab) [address] [facility], [place], [address], 07/26/2024 15:08:34 07/23/19 25 07/23/2024 CMP(C OMPRE HENSI VE METAB OLIC PANEL ) potassium 4.2 mmol/ L 3.5-5. 1 Not Available [facility] (Lab) [address] [facility], [place], [address], 07/26/2024 15:08:34 07/23/19 25 07/23/2024 CMP(C OMPRE HENSI VE METAB OLIC PANEL ) chloride 102 mmol/ L 98-107 Not Available [facility] (Lab) [address] [facility], [place], [address], 07/26/2024 15:08:34 07/23/19 25 07/23/2024 CMP(C OMPRE HENSI VE METAB OLIC PANEL ) carbon dioxide 23 mmol/ L 21-31 Not Available [facility] (Lab) [address] [facility], [place], [address], 07/26/2024 15:08:34 07/23/19 25 07/23/2024 CMP(C OMPRE HENSI VE METAB OLIC PANEL ) anion gap 11 mmol/ L 4-13 Not Available [facility] (Lab) [address] [facility], [place], [address], 07/26/2024 15:08:34 07/23/19 25 07/23/2024 CMP(C OMPRE HENSI VE METAB OLIC PANEL ) blood urea nitrogen 9 mg/dL 7-25 Not Available [facility] (Lab) [address] [facility], [place], [address], 07/26/2024 15:08:34 07/23/19 25 07/23/2024 CMP(C OMPRE HENSI VE METAB OLIC PANEL ) creatinine 0.59 mg/dL 0.60-1 .30 low Not Available [facility] (Lab) [address] [facility], [place], [address], 07/26/2024 15:08:34 07/23/19 25 07/23/2024 CMP(C OMPRE HENSI VE METAB OLIC PANEL ) egfrcr (CKD-epi 2020) >90 mL/mi n/1.7 3_m2 >=60 Not Available [facility] (Lab) [address] [facility], [place], [address], 07/26/2024 15:08:34 07/23/19 25 07/23/2024 CMP(C OMPRE HENSI VE METAB OLIC PANEL ) calcium 9.3 mg/dL 8.3-10 .5 Not Available [facility] (Lab) [address] [facility], [place], [address], 07/26/2024 15:08:34 07/23/19 25 07/23/2024 CMP(C OMPRE HENSI VE METAB OLIC PANEL ) glucose 68 mg/dL 70-100 low Not Available [facility] (Lab) [address] [facility], [place], [address], 07/26/2024 15:08:34 07/23/19 25 07/23/2024 CMP(C OMPRE HENSI VE METAB OLIC PANEL ) protein, total 6.9 g/dL 6.4-8. 3 Not Available [facility] (Lab) [address] [facility], [place], [address], 07/26/2024 15:08:34 07/23/19 25 07/23/2024 CMP(C OMPRE HENSI VE METAB OLIC PANEL ) albumin 3.7 g/dL 3.5-5. 0 Not Available [facility] (Lab) [address] [facility], [place], [address], 07/26/2024 15:08:34 07/23/19 25 07/23/2024 CMP(C OMPRE HENSI VE METAB OLIC PANEL ) ALT 11 units /L 9-43 Not Available [facility] (Lab) [address] [facility], [place], [address], 07/26/2024 15:08:34 07/23/19 25 07/23/2024 CMP(C OMPRE HENSI VE METAB OLIC PANEL ) alkaline phosphatase 94 units /L 34-104 Not Available [facility] (Lab) [address] [facility], [place], [address], 07/26/2024 15:08:34 07/23/19 25 07/23/2024 CMP(C OMPRE HENSI VE METAB OLIC PANEL ) AST 14 units /L 13-39 Not Available [facility] (Lab) [address] [facility], [place], [address], 07/26/2024 15:08:34 07/23/19 25 07/23/2024 CMP(C OMPRE HENSI VE METAB OLIC PANEL ) bilirubin, total 0.3 mg/dL 0.2-1. 2 Not Available [facility] (Lab) [address] [facility], [place], [address], 07/26/2024 15:08:34 07/23/19 25 07/23/2024 URIC ACID uric acid 3.5 mg/dL 2.3-6. 6 Not Available [facility] (Lab) [address] [place], [address], 07/26/2024 15:08:34 07/23/19 25 07/23/2024 PROTE IN/CR EATIN INE RATIO , URINE creatinine, urine 64.1 mg/dL R-No refer ence range estab lishe d for this assay Not Available [facility] (Lab) [address] [place], [address], 07/26/2024 15:08:35 07/23/19 25 07/23/2024 PROTE IN/CR EATIN INE RATIO , URINE protein, urine 9 mg/dL R-No refer ence range estab lishe d for this assay Not Available [facility] (Lab) [address] [facility], [place], [address], 07/26/2024 15:08:35 07/23/19 25 07/23/2024 PROTE IN/CR EATIN INE RATIO , URINE protein/crea tinine ratio, urine 0.14 . No Refer ence Range avail able for Rando m Urine s. A prote in to creat inine ratio of >=0.1 9 is a good predi ctor of signi fican t prote inuri a. A level of <0.14 can rule out signi fican t prote inuri a. Not Available [facility] (Lab) [address] [facility], [place], [address], 07/26/2024 15:08:35 07/23/19 25 07/23/2024 CULTU RE: GROUP B STREP SCREE N, REFLE X SUSCE PTIBI LITY result report SEE RESULT S BELOW Test: Cultu re: Group B Strep , Refle x Susce ptibi lity ([facility]/ [facility] ) Speci men Sourc e: Vagin a/Rec brendan Speci men Type: Vagin al/Re ctal Speci men Date: 2024 1307 Resul t Date: 025 1406 Resul t Statu s: Final resul t Abnor mal: No Resul ting Lab: [facility] [address] [facility] [address] Tel: CULTU RE ----- ----- ----- --- No Group B strep isola robby at 2 days (vic ctive broth enhan cemen t) Not Available [facility] (Lab) [address] [facility], [place], [address], 07/26/2024 15:08:35 06/28/1906/28/2024 US, obste tric, limit ed No observ ation record ed. [email or web address] [place] [address], [place], [address], 06/28/2024 16:26:57 06/28/19 25 06/28/2024 US, obste tric, limit ed No observ ation record ed. [email or web address] [address], [place], [address], 06/28/2024 21:45:19 07/07/19 25 07/07/2024 US, obste tric, follo w-up No observ ation record ed. [email or web address] [place] [address], [place], [address], 07/07/2024 12:50:28 07/07/19 25 07/07/2024 US, obste tric, follo w-up No observ ation record ed. [address], [place], [address], 07/12/2024 09:58:53 07/08/19 25 06/29/2024 johana r monit or No observ ation record ed. [address] [place] [address], [address], 07/19/2024 16:01:44 07/08/19 25 06/29/2024 johana r monit or No observ ation record ed. [address] (Neurology) [address] [place] [address] [place] [address], [address], 07/19/2024 16:01:45 07/23/19 25 07/23/2024 non-s tress test No observ ation record ed. [email or web address] [facility] [address], [place], [address], 07/23/2024 18:04:10 07/23/19 25 07/23/2024 non-s tress test No observ ation record ed. [email or web address] [facility] [address], [place], [address], 07/23/2024 18:18:35 03/05/20 25 US, obste tric, bioph ysica l profi le + non-s tress test No observ ation record ed. [facility] [address], [place], [address], 07/28/2024 13:06:01 07/29/19 25 07/28/2024 [place], obste tric, bioph ysica l profi le + non-s tress test No observ ation record ed. [id number], [place], [address], 07/28/2024 13:09:23 Result Notes None recorded. Problems Name Problem SNOMED Code Status Onset Date Resolution Date Notes Provider Name and Address Organization Details Recorded Time Mixed anxiety and depressi ve disorder 372281556 Active no current meds Katherin Hammond CNM [address], [place], [address], [facility] 4 18:13:46 Attentio n deficit hyperact ivity disorder 071208644 Active no current meds Katherin Hammond CNM [address], [place], [address], [facility] 4 18:13:41 Human papillom a virus infectio n 314211740 Active Katherin Hammond CNM [address], [place], [address], [facility] 4 18:11:59 Herpesvi jhon infectio n 47746580 Active 2023 Sherrie willard, [facility] 4 17:47:43 Abnormal cervical Papanico laou smear 965685148 Active 2023 8 ascus hpv Sherrie willard, [facility] 4 17:48:39 Pregnanc y 58255145 Active 2023 Sherrie Blankenship null, [facility] 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 5 17:39:03 Mixed anxiety and depressi ve disorder 969383760 Active no current meds Katherin Hammond CNM [address], [place], [address], [facility] 4 18:13:46 Attentio n deficit hyperact ivity disorder 653081899 Active no current meds Katherin Hammond CNM [address], [place], [address], [facility] 4 18:13:41 Hemorrho idectomy Active 2021 with colonosc opy Katherin Hammond CNM [address], [place], [address], [facility] 4 18:13:32 Placenta previa marginal is 61057067 Active resolved Katherin Hammond CNM [address], [place], [address], [facility] 4 10:41:39 Blood glucose outside referenc e range 964430920 Active decided on 3hr gtt sced 06/17 Re Little [facility], [facility] 5 14:32:15 Blood glucose outside referenc e range 313306364 Active decided on 3hr gtt sced 06/17 Re willard, [facility] 5 14:32:15 Pregnanc y-induce d hyperten abigail 12102298 Active 37wk delivery , antenata l testing Re Little null, [facility] 5 12:27:56 Pregnanc y-induce d hyperten abigail 92258863 Active 37wk delivery , antenata l testing Re Little null, [facility] 5 12:27:56 Speciali zed medical examinat ion Completed 201305/23/2020 Other specifie d chlamydi al diseases ;Practic e ID: 0001 Jenn Solano MD [address], [place], [address], [facility] 0 16:44:24 Venereal disease screenin g Completed 201305/23/2020 Screenin g examinat ion for venereal disease; Practice ID: 0001 Jenn Solano MD [address], [place], [address], [facility] 0 16:44:40 Amenorrh ea 95312104 Completed 201405/23/2020 AMENORRH EA;Pract ice ID: 0001 Jenn Solano MD [address], [place], [address], [facility] 0 16:43:25 Pregnanc y test negative 923605550 Completed 201405/23/2020 Negative Pregnanc y Test;Pra ctice ID: 0001 Jenn Solano MD [address], [place], [address], [facility] 0 16:44:08 Female genital organ symptoms 547011794 Completed 201405/23/2020 Pelvic Pain;Pra ctice ID: 0001 Jenn Solano MD [address], [place], [address], [facility] 0 16:43:42 Leukorrh ea 709135128 Completed 201405/23/2020 Leukorrh ea, not specifie d as infectiv e;Practi ce ID: 0001 Jenn Solano MD [address], [place], [address], [facility] 0 16:44:00 Fever 561279985 Completed 201405/23/2020 FEVER NOS;Prac dorothy ID: 0001 Jenn Solano MD [address], [place], [address], [facility] 0 16:43:49 Nausea 027848120 Completed 201405/23/2020 Nausea alone;Pr actice ID: 0001 Jenn Solano MD [address], [place], [address], [facility] 0 16:44:03 Adult health examinat ion Completed 201405/23/2020 Routine general medical examinat ion at a health care facility ;Practic e ID: 0001 Jenn Solano MD [address], [place], [address], [facility] 0 16:43:27 Sexually transmit robby infectio us disease 3648045 Completed 201402/05/2021 Venereal disease, unspecif ied;Prac dorothy ID: 0001 Galilea willard, [facility] 1 10:29:40 Vaginola bial hernia Completed 201405/23/2020 Other specifie d noninfla mmatory disorder s of vagina;P ractice ID: 0001 Jenn Solano MD [address], [place], [address], [facility] 0 16:44:36 Pelvic and perineal pain 435806173 Completed 201405/23/2020 Pelvic and perineal pain;Pra ctice ID: 0001 Jenn Solano MD [address], [place], [address], [facility] 0 16:44:06 Speciali zed medical examinat ion Completed 201305/23/2020 ROUTINE EARLY MORNING EXAMINAT ION;Cosmo rded Elsewher e: No Locat ion: [facility] S ource: EHR Compressor Stations Superintendent kwame: N Practi ce ID: 0001 Scott lable Time: 01:30:00 PM Jenn Solano MD [address], [place], [address], [facility] 0 16:44:17 Educatio n Completed 201805/23/2020 Encounte r for other general counseli ng and advice on contrace ption;Re corded Elsewher e: No Locat ion: [facility] S ource: EHR Compressor Stations Superintendent kwame: N Practi ce ID: 0001 Scott lable Time: 11:00:00 AM Jenn Solano MD [address], [place], [address], [facility] 0 16:43:35 Bleeding 919726062 Completed 201905/23/2020 Abnormal uterine bleeding ;Recorde d Elsewher e: No Locat ion: [facility] S ource: EHR Compressor Stations Superintendent kwame: N Practi ce ID: 0001 Scott lable Time: 10:15:00 AM MD [address], [place], [address], [facility] [address] 16:43:[address] Concept Completed 201605/23/2020 Encntr for clinical operations specialist exam (general ) (routine ) w/o abn findings ;Recorde d Elsewher e: No Locat ion: [facility] S ource: EHR Compressor Stations Superintendent kwame: N Practi ce ID: 0001 Scott lable Time: 08:30:00 AM MD [address], [place], [address], [facility] 0 16:44:21 Increase d frequenc y of urinatio n 303883017 Completed 201705/23/2020 Frequenc y of micturit ion;Cosmo rded Elsewher e: No Locat ion: [facility] S ource: EHR Compressor Stations Superintendent kwame: N Lyndsayti ce ID: 0001 Scott lable Time: 08:30:00 AM Jenn Solano MD [address], [place], [address], [facility] 0 16:43:57 Disorder of breast 88111444 Completed 201605/23/2020 Disorder of breast, unspecif ied;Cosmo rded Elsewher e: No Locat ion: [facility] S ource: EHR Compressor Stations Superintendent kwame: N Practi ce ID: 0001 Scott lable Time: 09:30:00 AM Jenn Solano MD [address], [place], [address], [facility] 0 16:43:32 Finding of regulari ty of menstrua l cycle Completed 201905/23/2020 Irregula r menstrua tion, unspecif ied;Cosmo rded Elsewher e: No Locat ion: [facility] S ource: EHR Compressor Stations Superintendent kwame: N Lyndsayti ce ID: 0001 Scott lable Time: 09:30:00 AM Jenn Solano MD [address], [place], [address], [facility] [address] 16:43:[address] Concept Completed 201405/23/2020 Encntr for general adult medical exam w/o abnormal findings ;Recorde d Elsewher e: No Locat ion: [facility] S ource: EHR Compressor Stations Superintendent kwame: N Practi ce ID: 0001 Scott lable Time: 09:45:00 AM Jenn Solano MD [address], [place], [address], [facility] 0 16:44:12 Urinary tract infectio us disease 74075098 Completed 201705/23/2020 Urinary tract infectio n, site not specifie d;Record ed Elsewher e: No Locat ion: [facility] S ource: EHR Compressor Stations Superintendent kwame: N Practi ce ID: 0001 Scott lable Time: 08:30:00 AM Jenn Solano MD [address], [place], [address], [facility] 0 16:44:30 Atypical squamous cells of undeterm ined signific ance on cervical Papanico laou smear 535762924 Completed 201712/17/2021 Irma willard, [facility] 2 11:49:39 Acute vaginiti s 09084075 Completed 201705/23/2020 Acute vulvovag initis;R ecorded Elsewher e: No Locat ion: [facility] S ource: EHR Compressor Stations Superintendent kwame: N Practi ce ID: 0001 Scott lable Time: 08:30:00 AM Jenn Solano MD [address], [place], [address], [facility] 0 16:43:22 Evaluati on finding Completed 201705/23/2020 Hematuri a, unspecif ied;Cosmo rded Elsewher e: No Locat ion: [facility] S ource: EHR Compressor Stations Superintendent kwame: N Practi ce ID: 0001 Scott lable Time: 08:30:00 AM Jenn Solano MD [address], [place], [address], [facility] 0 16:43:38 Herpes simplex 20814333 Completed 201512/17/2021 Irma willard, [facility] 2 11:49:39 Atypical squamous cells on cervical Papanico laou smear cannot exclude high grade squamous intraepi thelial lesion 537294080 Completed 201802/05/[address] [facility] 10:41:03 Abnormal uterine bleeding 3930061883 9100 Completed 201802/05/2021 Other specifie d abnormal uterine and vaginal bleeding ;Practic e ID: 0001 Galilea willard [facility] 10:29:37 Problem Notes None recorded. Procedures Surgical History Date Name Laterality Status Provider Name and Address Organization Details Recorded Time 024 Date of Last Pap Smear completed [facility] 02/18/2024 17:17:49 022 thumb surgery completed [facility] 01/15/2024 12:37:08 022 hemorrhoidectomy completed [facility] 01/15/2024 12:36:55 021 Date of Last Colonoscopy completed Irma Lanier [facility] 12/17/2021 12:03:00 021 Colonoscopy completed [facility] 01/15/2024 12:36:43 021 procedure on wrist completed [facility] 01/15/2024 12:37:03 Imaging Results Imaging Date Name Status LastModified by Organiz ation Details LastModified Time 06/28/2024 US, obstetric, limited completed [email or web address] [facility] [address], [place], [address], 06/28/2024 16:26:57 06/28/2024 US, obstetric, limited completed [email or web address] [address], [place], [address], 06/28/2024 21:45:19 07/07/2024 US, obstetric, follow-up completed [email or web address] [facility] [address], [place], [address], 07/07/2024 12:50:28 07/07/2024 US, obstetric, follow-up completed [email or web address] [address], [place], [address], 07/12/2024 09:58:53 06/29/2024 holter monitor completed [address], [address], 07/19/2024 16:01:44 06/29/2024 holter monitor completed [address] (Neurology) [address] [place] [address], [address], 07/19/2024 16:01:45 07/23/2024 non-stress test completed [address], [place], [address], 07/23/2024 18:04:10 07/23/2024 non-stress test completed [place] [address], [place], [address], 07/23/2024 18:18:35 07/28/2024 US, obstetric, biophysical profile + non-stress test active [facility] [address], [place], [address], 07/28/2024 13:06:01 07/28/2024 US, obstetric, biophysical profile + non-stress test active [email or web address] [address], [place], [address], 07/28/2024 13:09:23 Procedure Notes None recorded. Medical Equipment None Reported. Allergies Allergen ID Allergen Name Allergen Category Reaction Reaction Severity Criticality Documentation Date Start Date Code Code System Note Provider Name and Address Organization Details Recorded Time 573 cefdinir medicatio n Not available Not available Not available 10/06/2019 43735 RxNorm [address]ong [facility] 0 11:50:55 574 Product containin g cephalosp lidia (product) medicatio n Not available Not available Not available 10/06/2019 17622 9009 SNOMED Gayatri [facility] 0 11:51:08 575 citalopra m medicatio n Not available Not available Not available 10/06/2019 2556 RxNorm cital opram hydro bromi de Gayatri [facility] 0 11:51:56 576 Product containin g penicilli n (product) medicatio n Not available Not available Not available 10/06/2019 65471 8001 SNOMED Gayatri [facility] 0 11:52:07 Medications Name Sig Start [...] Prescrib ed Elsewher e: No Locat ion: [facility] odify By: cfrieder jesenia mcdaniel DateTime : 02/17/20 19 10:30:00 AM Not [...] Prescrib ed Elsewher e: Yes Loca tion: [facility] odify By: [email or web address] trick En counter [...] Prescrib ed Elsewher e: No Locat ion: [facility] odify By: [email or web address] trick En counter DateTime : 12/20/19 15 10:37:18 AM Not Available Not Available Not Available Diflucan 50 mg tablet take 2 tablet by oral route every day 01/12 completed Prescrib ed Elsewher e: Yes Loca tion: [facility] odify By: [email or web address] trick En counter DateTime : 12/15/19 15 09:00:00 AM Not Available Not Available Not Available Loestrin 06/14 (21) 1 mg-20 mcg tablet take 1 tablet by oral route every day 11/25 completed Prescrib ed Elsewher e: No Locat ion: [facility] odify By: carmelo koch DateTime : 11/04/19 03:55:59 PM Not Available Not Available Not Available Valtrex 1 gram tablet take 1 tablet by oral route every 24 hours 05/23 completed Prescrib ed Elsewher e: No Locat ion: [facility] odify By: lissette Montaño nter DateTime : [...] Prescrib ed Elsewher e: No Locat ion: [facility] odify By: fabiola lee DateTime : 10/29/19 18 03:01:34 PM Not [...] Prescrib ed Elsewher e: Yes Loca tion: [facility] odify By: [email or web address] trick En counter DateTime : 12/17/19 15 02:35:38 PM Not Available Not Available Not Available Zithromax 500 mg tablet Take 2 pills all at once by oral route 01/12 completed Prescrib ed Elsewher e: No Locat ion: [facility] odify By: [email or web address] trick En counter [...] Elsewher e: Yes Loca tion: [facility] odify By: [email or web address] javyk En counter DateTime : 12/15/19 15 09:00:00 AM Not Available Not Available Not Available Lexapro 5 mg tablet take 1 tablet by oral route every day 05/23 completed Prescrib ed Elsewher e: Yes Loca tion: [facility] odify By: [email or web address] z [address] ter DateTime : 02/17/20 19 10:30:00 AM Not Available Not Available Not Available Ritalin LA 10 mg capsule,e xtended release take 1 capsule by oral route every day in the morning 05/23 completed Prescrib ed Elsewher e: Yes Loca tion: [facility] odify By: padmaja Teixeira ncounter DateTime : [...] Elsewher e: No Locat ion: [facility] odify By: lissette tz Encou nter DateTime : 02/17/20 19 10:30:00 AM Not Available Not Available Not Available B12 5,000 mcg-100 mcg sublingua l lozenge 05/23 completed Prescrib ed Elsewher e: Yes Loca tion: [facility] odify By: padmaja lee DateTime : 06/01/19 03:30:00 PM Not Available Not Available Not Available ProChambe r USE DIRECTED 07/24 completed Not Available Not Available Not Available Gynazole- 1 2 % vaginal cream insert 1 applicat orful by vaginal route once 06/15 completed Prescrib ed Elsewher e: No Locat ion: Thanh puneet [facility] odify By: david ba Enco unter DateTime : 02/19/20 01:26:20 PM Not Available Not Available Not Available Nasacort 55 mcg nasal spray aerosol 05/23 completed Prescrib ed Elsewher e: Yes [facility]oca [facility]ion[facility] odify By: padmaja lee DateTime : 06/01/19 03:30:00 PM Not Available [...] weight Body mass index (BMI) Body height Body height Body mass index (BMI) Body weight Systolic blood pressure Diastolic blood pressure Systolic blood pressure Diastolic blood pressure Provider Name and Address Organization Details Last Updated DateTime 5 04618.6 5874 g 33.1 kg/m2 166.37 cm 166.37 cm 33.1 kg/m2 30808.6 6 g 132 mm[Hg] 93 mm[Hg] 132 mm[Hg] 93 mm[Hg] Sherrie Blankenship [facility] 5 18:01:57 Date Recorded Body weight Body mass index (BMI) Body height Systolic blood pressure Diastolic blood pressure Systolic blood pressure Diastolic blood pressure Provider Name and Address Organization Details Last Updated DateTime 5 98910.4 3585 g 33.6 kg/m2 166.37 cm 155 mm[Hg] 101 mm[Hg] 160 mm[Hg] 108 mm[Hg] Sherrie Blankenship [facility] 13:14:30 Social History Question Answer Notes LastModified by Organizat ion Details LastModified Time Tobacco Smoking Status Never Smoker Naila Paul willard, [facility] 06/04/2023 09:52:40 Do You Have An Advance Directive? No [email or web address] Information n ot available 02/05/2021 What Is Your Level Of Alcohol Consumption? None [email or web address] Information not available 01/14/2024 If You Are , What Was Your Level Of Alcohol Consumption Prior To ? Occasional [email or web address] Information not available 01/14/2024 Are You Blind Or Do You Have Difficulty Seeing? No [email or web address] Information n ot available 02/05/2021 What Is Your Level Of Caffeine Consumption? Moderate Information not available 12/17/2021 How Much Tobacco Do You Chew? None [email or web address] Information not available 02/05/2021 In The 14 Days Before Symptom Onset, Have You Had Close Contact With A Laboratory-confirm ed COVID-19 While That Case Was Ill? No [email or web address] Information n ot available 02/05/2021 In The 14 Days Before Symptom Onset, Have You Had Close Contact With A Person Who Is Under Investigation For COVID-19 While That Person Was Ill? No [email or web address] Information not available 02/05/2021 Have You Been To An Area Known To Be High Risk For COVID-19? No Information not available 02/05/2021 Are You Deaf Or Do You Have Serious Difficulty Hearing? No [email or web address] Information not available 02/05/2021 What Type Of Diet Are You Following? REGULAR [email or web address] Information n ot available 02/05/2021 What Is The Highest Grade Or Level Of School You Have Completed Or The Highest Degree You Have Received? EC29303-6 [email or web address] Information not available 02/05/2021 Are There Any Guns Present In Your Home? No [email or web address] Information not available 02/05/2021 Do You Use Protection During Sex? No Information not available 12/17/2021 Do You Use Your Seat Belt Or Car Seat Routinely? Yes [email or web address] Information not available 02/05/2021 Are You Sexually Active? Yes [email or web address] Information not available 06/10/2024 Do You Have Smoke And Carbon Monoxide Detectors In Your Home? No Information not available 02/05/2021 How Much Tobacco Do You Smoke? No Information not available 02/05/2021 Do You Feel Stressed (tense, Restless, Nervous, Or Anxious, Or Unable To Sleep At Night)? [id number] [email or web address] Information not available 02/05/2021 Do You Use Any Illicit Or Recreational Drugs? No [email or web address] Information not available 02/05/2021 Do You Use Sunscreen Routinely? No [email or web address] Information not available 02/05/2021 Have You Used IV Drugs? No [email or web address] Information not available 02/05/2021 Sex: Unknown Functional Status Question Answer Note LastModified by Organizat ion Details LastModified Time Do you have difficulty walking or climbing stairs? No [email or web address] Information not available 06/04/2023 Are you able to walk? [email or web address] Information not available 02/05/2021 Are you able to care for yourself? Yes [email or web address] Information not available 06/04/2023 Do you have difficulty dressing or bathing? No [email or web address] Information not available 06/04/2023 What is your exercise level? Occasional [email or web address] Information not available 02/18/2024 Mental Status None [...] Diagnosis ICD10 Code Diagnosis Note [id number] Henny Joseph [facility] [address] [address] 10/06/2019 11:38:39 10/07/2019 10:48:16 Acute urinary tract infection 394525646 N39.0 Increase water and decrease caffeine. WIll start macrobid and send out diflucan since she is prone to yeast infections . Pt is also agreeable to have STD screening from urine. 6364 Mirian Chandler [facility] [address],[place] [address] 10/27/2019 10:28:54 10/27/2019 11:24:47 Dysuria 51409599 R30.9 R35.0 Patient is here today for [...] of care. Urinary tr act infectious disease 86663925 N39.0 [id number] Mirian Chandler [facility] [address],[place] [address] 03/13/2020 10:23:48 03/14/2020 13:16:27 Urinary tract infectious disease 17869417 N39.0 Urine dip sent for culture/UA . Will treat based on sx's & await return of results. [id number] Kris Huynh MD [facility] [address],[place] [address] 03/18/2020 10:13:08 03/18/2020 13:40:22 Sexually transmitted infectious disease 2652569 A64 this patient is a 25-year-ol d [...] the portal.She willbe contacted for abnormal results. [id number] Kris Huynh MD [facility] [address],[place] [address] 04/17/2020 15:02:49 04/17/2020 15:55:17 Infection by Trichomonas 01573380 A59.9 this patient is a 25-year-ol d female presents for test of cure for Trichomona s. The vulva and distal vagina were examined and a swab was taken. It all appeared normal. We will follow up on those results. She has not had exposure to the partner she previously had. [id number] Jenn Solano MD [facility] [address],[place] [address] 05/23/2020 16:15:44 05/23/2020 16:54:00 Urgent desire to urinate 78197913 R39.15 Increased frequency of urination 625967545 R35.0 Venereal d isease screening 253220899 Z11.3 Contracept ion care management 832919935 Z30.9 [id number] [facility] [address],[place] [address] 08/02/2020 09:18:58 08/02/2020 10:01:57 Urinary tract infectious disease 89997331 N39.0 47648 Henny Joseph [facility] [address] [place] [address] 02/05/2021 10:33:03 02/05/2021 12:08:03 Vaginitis 74907766 N76.0 Discussed use of mild soap like dove or ivory, cotton underwear w/out dye, hypoallerg enic detergent, wipe from front to back, avoid tub baths, keep perineum clean and dry, d/c use of baby wipes. Encouraged daily intake of yogurt or womens health probiotic. Internal and external affirm collected along with STD screen. [id number] ALCON [facility] [address] [address] 12/17/2021 11:40:46 12/17/2021 12:36:48 Gynecologic examination 15112782 Z01.419 Take Calcium with Vitamin D 1200mg [...] orderedmam mo na Adult heal th examination 500005352 Z00.00 Will update routine labs to ensure body systems are in check Reproducti ve care management 179560659 Z31.9 Will evaluate [facility] to gain an idea of fertilityD oesn't use BC & has never gotten . [id number] [facility]atherin Hammond, [facility] [address] [address] 07/24/2022 11:13:17 07/24/2022 12:33:26 Trying to conceive 172177778 Z31.9 [id number] [facility]ian [facility] [address],[place] [address] 06/04/2023 09:50:45 06/04/2023 10:35:27 Irregular periods 91517823 N92.6 Today we reviewed her menstrual applicatio [...] and review of plan of care. [id number] [facility] [address],[place] [address] 01/01/2024 12:14:39 01/01/2024 12:40:58 Uncertain viability of 216913675 O36.80X0 Z3A.01 [id number] Sofia Wakefield [facility] [address],[place] [address] 01/14/2024 16:45:29 01/14/2024 17:19:04 [id number] Katherin Hammond [facility] [address],[place] [address] 01/14/2024 16:45:51 01/15/2024 09:47:50 Amenorrhea 69781240 N91.2 [id number] [facility] [address],[place] [address] 02/18/2024 16:44:03 02/18/2024 23:27:31 screening 012323605 Z36.82 Z3A.13 [id number] Sherrie Blankenship [facility] [address],[place] [address] 02/18/2024 16:44:43 02/19/2024 11:36:35 Routine care 385406096 Z34.90 Gestation period, 12 weeks 75627316 Z3A.12 [id number] [facility] [address],[place] [address] 03/17/2024 16:49:53 03/17/2024 17:25:00 Gestation period, 17 weeks 56845121 Z3A.17 [id number] Guerita Jiménez Carbonado [address],[place] [address] 03/23/2024 15:14:06 03/23/2024 15:35:59 Vaginitis 86823841 N76.0 [id number] [facility] [address],[place] [address] 03/31/2024 13:01:02 03/31/2024 13:23:11 Urinary tract infectious disease 63894299 N39.0 Yeast detected 159762492 R89.5 [id number] [facility] [address],[place] [address] 04/07/2024 11:33:40 04/07/2024 12:52:43 screening for malformation 305039523 Z36.3 Z3A.20 [id number] Katherin Hammond [facility] [address],[place] [address] 04/07/2024 11:34:02 04/07/2024 13:01:19 Gestation period, 20 weeks 68604777 Z3A.20 continue vitamin Placenta p revia partialis 59397387 O44.20 [id number] [facility] [address] [place] [address] 05/05/2024 09:20:42 05/05/2024 10:25:15 Placenta circumvallata 7764287 O43.112 O44.40 Z3A.24 [id number] [facility] [address],[place] [address] 05/05/2024 09:21:22 05/05/2024 10:52:21 Gestation period, 24 weeks 343349803 Z3A.24 [id number] Katherin Hammond [facility] [address],[place] [address] 06/10/2024 09:53:50 06/10/2024 11:35:44 Gestation period, 29 weeks 85349192 Z3A.29 [id number] [facility] [address],[place] [address] 06/23/2024 10:51:13 06/23/2024 12:11:51 Gestation period, 31 weeks 46379150 Z3A.31 [id number] [facility] [address],[place] [address] 06/28/2024 11:47:52 06/28/2024 12:42:11 Spotting per vagina in 026605073 O26.853 Z3A.31 [id number] [facility] [address],[place] [address] 07/07/2024 09:24:38 07/07/2024 10:06:57 Placenta circumvallata 2548647 O43.113 Z3A.33 [id number] Katherin Hammond [facility] [address],[place] [address] 07/07/2024 09:24:57 07/07/2024 10:26:33 Gestation period, 33 weeks 89950962 Z3A.33 [id number] Katherin Hammond [facility] [address],[place] [address] 07/16/2024 09:43:14 07/16/2024 10:06:11 Gestation period, 34 weeks 71593728 Z3A.34 [id number] [facility] [address],[place] [address] 07/23/2024 11:43:30 07/23/2024 12:37:39 screening 646161034 Z36.85 - induced hypertension 18901133 O13.9 Gestation period, 35 weeks 97131008 Z3A.35 [id number] Sherrie Blankenship Carbonado [address],[place] [address] 07/23/2024 18:00:14 07/26/2024 02:46:21 -induced hypertension 30889070 O13.9 [id number] Sofia Wakefield Carbonado [address],[place] [address] 07/28/2024 11:43:02 07/28/2024 13:33:13 Chronic hypertension complicating AND/OR reason for care during 99455575 O16.3 Z3A.36 [id number] Katherin Hammond [facility] [address],[place] [address] 07/28/2024 11:43:24 07/28/2024 14:09:14 Gestation period, 36 weeks 64263185 Z3A.36 Health Concerns Section Related Observation LastModified by Organization Detai ls LastModified Time None Recorded Concern Status LastModified by Organization Details LastModified Time None Recorded Advance Directives Directive N: Payers Encounter Date Sequence Insurance Name Policy Number Policy Ellison Covered Member ID Ellison Member ID Guarantor Name 07/23/2024 1 [employer] [id number] Ira Boeser [id number] Ira Boeser 07/23/2024 1 UMR [id number] Ira Boeser [id number] Ira Boeser 07/28/2024 1 UMR [id number] Ira Boeser [id number] Ira Boeser 07/28/2024 1 UMR [id number] Ira Boeser [id number] Ira Boeser OBGyn Episode Ob Episode Information Episode Created Date Number of Fetuses Patient Bloodtype Patient rh Status Prepregnancy Weight lbs Domestic Partner Domestic Partner Phone Father Name Security Screener Status 02/18/20 24 1 A Positive 153 OPEN Fetus Data First Name Last Name Admitted to NICU Weight (g) Sex Living Outcome Pediatric Complications Fetus ID Race Codes Race Delivery Type [id number] Problems Problem Notes Checking BS x 2 wk07/19/2024 referral to cardiology for chest pain and shortness of breathe had holter monitor done Cardiolgy consult scheduled Dr Nicholson 08/02/24 1030 Problem Name Start Date End Date Resolution Snomed Code Not e Blood glucose outside reference range 351838271 decided on 3 hr gtt sced 06/17 Mixed anxiety and depressive disorder 850118701 no curre nt meds Hemorrhoidectomy 72830543 202 2 with colonoscopy Placenta previa marginalis 83785489 resolved -induced hypertension 72648964 37wk delivery , testing Herpes simplex 12110146 on bl ood test, plan 36 week valtrex, as a precaution2/4 Outbreak Valtrex 500mg BID x3 days , followed by daily suppression until delivery Attention deficit hyperactivity disorder 781540652 no cu rrent meds Alber Calculation Initial Alber Date Initial Exam Date Initial Exam Provider Initial Ultrasound Date Last Menstrual Period Date Ultra Sound Weeks Gestation 08/24/2024 01/14/2024 Katherin Stephany 01/01/2024 11/18/2023 6 Eighteen To Twenty Week [...] Type Weight in lbs Pre/Post Dialysis Refused 158.505124033594 BP Diastolic BP Location Tested BP Systolic BP Type 93 125 Fetus Heart Rate Present Fetus Movement A No Comments reviewed history, no current medications, moving from [place] to [place] this weekend with FOB, doing well, some stress after told family about , reviewed US, blood work complete, ok for flu and covid, start routine care Flowsheet Date 03/17/2024 Nunez Score Blood Edema Fundus Height Fundus Units Glucose Ketones Leukocytes Nitrite Labor Signs Protein Cervic Dilation Cervic Effacement Cervic Station none Type Weight in lbs Pre/Post Dialysis Refused 167.673259398801 BP Diastolic BP Location Tested BP Systolic [...] Weight in lbs Pre/Post Dialysis Refused Weight 168.888110426828 BP Diastolic BP Location Tested BP Systolic BP Type 85 L arm 126 sitting Fetus Heart Rate Present Fetus Movement Comments Flowsheet Date 03/31/2024 Nunez Score Blood Edema Fundus Height Fundus Units Glucose Ketones Leukocytes Nitrite Labor Signs Protein Cervic Dilation Cervic Effacement Cervic Station Type Weight in lbs Pre/Post Dialysis Refused Weight 168.526100334574 BP Diastolic BP Location Tested BP Systolic [...] Type Weight in lbs Pre/Post Dialysis Refused 171.813891329313 BP Diastolic BP Location Tested BP Systolic [...] Type Weight in lbs Pre/Post Dialysis Refused 182.000069295994 BP Diastolic BP Location Tested BP Systolic [...] Weight in lbs Pre/Post Dialysis Refused Weight 193.262124968116 BP Diastolic BP Location Tested BP Systolic [...] Type Weight in lbs Pre/Post Dialysis Refused 196.129589642614 BP Diastolic BP Location Tested BP Systolic BP Type 87 139 Fetus Heart Rate Present Fetus Movement A Yes Comments bp elevated last night with chest tightness, had this 2 years ago had echo and cardiac workup all was negative, went away and now back only at hs, feels fine now, will plan monitoring tech. passed 3 hr GCTnormotensive today, +FM precautions [...] Type Weight in lbs Pre/Post Dialysis Refused 198.383709690814 BP Diastolic BP Location Tested BP Systolic [...] Type Weight in lbs Pre/Post Dialysis Refused 205.636453126109 BP Diastolic BP Location Tested BP Systolic [...] Type Weight in lbs Pre/Post Dialysis Refused 202.907898822684 BP Diastolic BP Location Tested BP Systolic [...] Weight in lbs Pre/Post Dialysis Refused Weight 202.095892830625 BP Diastolic BP Location Tested BP Systolic [...] Type Weight in lbs Pre/Post Dialysis Refused 205.656474284671 BP Diastolic BP Location Tested BP Systolic [...]
--- OUTSIDE RECORDS SUMMARY | 2024-07-28 13:48 | XMS_ITS | Encounter Summary ---
Author Organization [facility] Address [address] [place] [address] Care Team Providers Care Packager Machine Name Role Phone Vikash Ibarra MD Primary Care Provider [phone] Reason for Referral * Surgical (Routine) - Closed Specialty Diagnoses / Procedures Referred By Amanda so Referred To Contact Procedures Case request operating room: COLONOSCOPY DIAGNOSTIC WITH/WITHOUT SPECIMEN BRUSH/WASH POSSIBLE POLYPECTOMY POSSIBLE BIOPSY Sami Andersen MD [address] [facility] [address] [place] [address] Phone: tel: fax: Referral ID Status Reason Start Date Expiration Date Visits Re quested Visits Authorized [id number] Closed 02/09/2021 03/11/2022 1 1 Encounter Details Date Type Department Care Team (Late st Contact Info) Description 02/09/2021 Prep for Procedure [facility] [address] [place], [place] [address] Sami Andersen MD [address] [facility] [address] [place] [address] Social History Tobacco Use Types [...] complication documented in this encounter Care Teams Packager Machine Relationship Specialty Start Date End Date Vikash Ibarra MD [address] [place] [address] [address] [place] [address] PCP - General FAMILY PRACTICE 02/08/21 documented as of this encounter
--- OUTSIDE RECORDS SUMMARY | 2024-07-28 13:48 | XMS_ITS | Referral Summary ---
Author Organization [facility] Address [address] [facility] [place] [address] Care Team Providers Care Caterpillar Tractor Operator Name Role Phone Unavailable Primary Care Provider Unavailabl e Source Comments [facility],non-owned Affiliates and Associated Physician Practices is amultiple site organization consisting of ambulatory clinics and hospital sitesin [place], [place], [place] and [place]. This disclosure is being madepursuant to the Care Everywhere program and may not contain all information available regarding this patient. Last updated 18.[facility] Allergies Active Allergy Reactions Criticality Noted Date [...] Comments Blood Pressure 132/84 07/08/2020 10:27 AM STORE ASSISTANT Pulse 85 07/08/2020 10:27 AM STORE ASSISTANT Temperature 37.2 C (99 F) 07/08/2020 10:27 AM STORE ASSISTANT Respiratory Rate 16 07/08/2020 10:27 AM STORE ASSISTANT Oxygen Saturation 98% 07/08/2020 10:27 AM STORE ASSISTANT Inhaled Oxygen Concentration - - Weight 77.1 kg (170 lb) 07/08/2020 10:27 AM STORE ASSISTANT Height 167.6 cm (5' 6 ) 07/08/2020 10:27 AM STORE ASSISTANT Body Mass Index 27.44 07/08/2020 10:27 AM STORE ASSISTANT Plan of Treatment Not on file Jenny Apple Personal/Famil y Self [address] [place] [address]
--- OUTSIDE RECORDS SUMMARY | 2024-07-28 13:48 | XMS_ITS | Clinical Summary ---
Author Organization [facility] Address [address] [facility] [place] [address] Care Team Providers Care Nursing Aide Name Role Phone Unavailable Primary Care Provider Unavailabl e Source Comments [facility],non-owned Affiliates and Associated Physician Practices is amultiple site organization consisting of ambulatory clinics and hospital sitesin [place], [place]. This disclosure is being madepursuant to the Care Everywhere program and may not contain all information available regarding this patient. Last updated 18.[facility] Allergies Active Allergy Reactions Criticality Noted Date [...] Comments Blood Pressure 132/84 07/08/2020 10:27 AM WASH CREW PERSON Pulse 85 07/08/2020 10:27 AM WASH CREW PERSON Temperature 37.2 C (99 F) 07/08/2020 10:27 AM WASH CREW PERSON Respiratory Rate 16 07/08/2020 10:27 AM WASH CREW PERSON Oxygen Saturation 98% 07/08/2020 10:27 AM WASH CREW PERSON Inhaled Oxygen Concentration - - Weight 77.1 kg (170 lb) 07/08/2020 10:27 AM WASH CREW PERSON Height 167.6 cm (5' 6 ) 07/08/2020 10:27 AM WASH CREW PERSON Body Mass Index 27.44 07/08/2020 10:27 AM WASH CREW PERSON Plan of Treatment Health Maintenance Due Date [...] Jenny Apple Personal/Famil y Self 1995 [place] [address]
--- OUTSIDE RECORDS SUMMARY | 2024-07-28 13:48 | XMS_ITS | Patient Health Summary ---
Author Organization [facility] Address [address] [facility] [place] [address] Care Team Providers Care Compliance Officer Name Role Phone Unavailable Primary Care Provider Unavailabl e Note from [facility],non-owned Affiliates and Associated Physician Practices is amultiple site organization consisting of ambulatory clinics and hospital sitesin [place], [place], [place] and [place]. This disclosure is being madepursuant to the Care Everywhere program and may not contain all information available regarding this patient. Last updated 18.[facility] Allergies * Citalopram(Rash) -Medium Criticality * Cefdinir(Other) [...] Comments Blood Pressure 132/84 07/08/2020 10:27 AM SOFTWARE INTEGRATION DEVELOPER Pulse 85 07/08/2020 10:27 AM SOFTWARE INTEGRATION DEVELOPER Temperature 37.2 C (99 F) 07/08/2020 10:27 AM SOFTWARE INTEGRATION DEVELOPER Respiratory Rate 16 07/08/2020 10:27 AM SOFTWARE INTEGRATION DEVELOPER Oxygen Saturation 98% 07/08/2020 10:27 AM SOFTWARE INTEGRATION DEVELOPER Inhaled Oxygen Concentration - - Weight 77.1 kg (170 lb) 07/08/2020 10:27 AM SOFTWARE INTEGRATION DEVELOPER Height 167.6 cm (5' 6 ) 07/08/2020 10:27 AM SOFTWARE INTEGRATION DEVELOPER Body Mass Index 27.44 07/08/2020 10:27 AM SOFTWARE INTEGRATION DEVELOPER
--- OUTSIDE RECORDS SUMMARY | 2024-07-28 13:48 | XMS_ITS | Encounter Summary ---
Author Organization [facility] Address [address] [facility] [place] [address] Care Team Providers Care Toolroom Clerk Name Role Phone Unavailable Primary Care Provider Unavailabl e Encounter Details Date Type Department Care Team (Latest Contact Info) Description 03/09/2024 Transcribe Orders [facility] [place] [address] [place] [id number] Cassandra Butt MD [address] [facility] [address] [facility] [address] [place] [address] resulting from in vitro fertilization [...]
--- OUTSIDE RECORDS SUMMARY | 2024-07-28 13:48 | XMS_ITS | Encounter Summary ---
Author Organization [facility] Address [address] [place] [address] Care Team Providers Care Production Metal Sprayer Name Role Phone Vikash Ibarra MD Primary Care Provider [phone] Encounter Details Date Type Department Care Team (Late st Contact Info) Description 07/18/2021 Pronutria Message Enc [facility] General Surgery [address], [address] [place] [address] Sami Andersen MD [address] [address] Question Social History Tobacco Use [...] on filedocumented in this encounter Care Teams Production Metal Sprayer Relationship Specialty Start Date End Date Vikash Ibarra MD [address] [place] [address] [address] [place] [address] PCP - General FAMILY PRACTICE 9/16/21 documented as of this encounter
--- OUTSIDE RECORDS SUMMARY | 2024-07-28 13:48 | XMS_ITS | Continuity of Care Document ---
Author Organization [facility] [place] Address [address] [place] [address] Care Team Providers Care Specimen Boss Name Role Phone ROSE LAROSE Primary Care Provider [phone] Assessment Encounter Date Assessment Date Assessment LastModified by Organization Details LastModified Time 07/28/2024 07/28/2024 Patient is __36_weeks . Discussed [...] recorde d. Surgeries None recorde d. Imaging None recorde d. Medication Orders None recorde d. Patient TargetsNo targets recorded. Patient InstructionsNo instructions recorded. Reason for Referral None Reported. Results Created Date Observation Date Name Description Value Unit Range Abnormal Flag Note LastModifiedBy Organization Detail LastModifiedTime 02/18/20 24 02/18/2024 US, obste tric, nucha l trans lucen cy No observ ation record ed. [facility] [place] [address], [place], [address], 02/18/2024 18:17:42 02/18/20 24 02/18/2024 US, obste tric, nucha l trans lucen cy No observ ation record ed. HAYDE [address], [place], [address], 02/19/2024 10:17:39 04/07/20 24 04/07/2024 US, obste tric, 2nd or 3rd trime ster No observ ation record ed. [facility] [place] [address], [place], [address], 04/07/2024 18:21:04 04/07/20 24 04/07/2024 US, obste tric, 2nd or 3rd trime ster No observ ation record ed. tee [address], [place], [address], 04/07/2024 23:13:22 05/05/20 24 05/05/2024 US, obste tric, follo w-up No observ ation record ed. [facility] [address], [place], [address], 05/05/2024 13:09:30 05/05/20 24 05/05/2024 US, obste tric, follo w-up No observ ation record ed. [email or web address] [address], [place], [address], 05/05/2024 22:53:04 06/28/19 25 06/28/2024 US, obste tric, limit ed No observ ation record ed. [email or web address] [place] [address], [place], [address], 06/28/2024 16:26:57 06/28/19 25 06/28/2024 US, obste tric, limit ed No observ ation record ed. [email or web address] [address], [place], [address], 06/28/2024 21:45:19 07/07/19 25 07/07/2024 US, obste tric, follo w-up No observ ation record ed. [facility] [place] [address], [place], [address], 07/07/2024 12:50:28 07/07/19 25 07/07/2024 US, obste tric, follo w-up No observ ation record ed. [address], [place], [address], 07/12/2024 09:58:53 07/08/19 25 06/29/2024 johana r monit or No observ ation record ed. [address], [place], [address], 07/19/2024 16:01:44 07/08/19 25 06/29/2024 johana r monit or No observ ation record ed. [address] (Neurology) [address], [place], [address], 07/19/2024 16:01:45 07/23/19 25 07/23/2024 non-s tress test No observ ation record ed. [email or web address] [place] [address], [place], [address], 07/23/2024 18:04:10 07/23/19 25 07/23/2024 non-s tress test No observ ation record ed. [email or web address] [place] [address], [place], [address], 07/23/2024 18:18:35 07/29/19 US, obste tric, bioph ysica l profi le + non-s tress test No observ ation record ed. deborah [place] [address], [place], [address], 07/28/2024 13:06:01 07/29/19 25 07/28/2024 US, obste tric, bioph ysica l profi le + non-s tress test No observ ation record ed. [email or web address] [facility], [place], [address], 07/28/2024 13:09:23 Result Notes None recorded. Problems Name Problem SNOMED Code Status Onset Date Resolution Date Notes Provider Name and Address Organization Details Recorded Time Mixed anxiety and depressi ve disorder 222399267 Active no current meds Katherin Hammond CNM [address], [place], [address], [facility] 4 18:13:46 Attentio n deficit hyperact ivity disorder 638918692 Active no current meds Katherin Hammond CNM [address], [place], [address], [facility] 4 18:13:41 Human papillom a virus infectio n 060947566 Active Katherin Hammond CNM [address], [place], [address], [facility] 4 18:11:59 Herpesvi jhon infectio n 55133000 Active 2023 Sherrie Blankenship null, [facility] 4 17:47:43 Abnormal cervical Papanico laou smear 403887319 Active 2023 8 ascus hpv Sherrie Blankenship null, [facility] 4 17:48:39 Pregnanc y 86305229 Active 2023 Sherrie willard, [facility] 4 17:18:41 Herpes simplex 34795855 Active on blood test, plan 36 week valtrex, as a precauti on 06/29 Outbreak Valtrex 500mg BID x3 days , followed by daily suppress ion until delivery Re Little null, [facility] 5 17:39:03 Mixed anxiety and depressi ve disorder 446238460 Active no current meds Katherin Hammond CNM [address], [place], [address], [facility] 4 18:13:46 Attentio n deficit hyperact ivity disorder 251104592 Active no current meds Katherin Hammond CNM [address], [place], [address], [facility] 4 18:13:41 Hemorrho idectomy Active 2021 with colonosc opy Katherin Hammond CNM [address], [place], [address], [facility] 4 18:13:32 Placenta previa marginal is 60513441 Active resolved Katherin Hammond, [place] [address], [place], [address], [facility] 4 10:41:39 Blood glucose outside referenc e range 310108223 Active decided on 3hr gtt sced 06/17 Re Little null, [facility] 5 14:32:15 Blood glucose outside referenc e range 810241094 Active decided on 3hr gtt sced 06/17 Re Green null, [facility] 5 14:32:15 Pregnanc y-induce d hyperten abigail 94303150 Active 37wk delivery , antenata l testing Re Little null, [facility] 5 12:27:56 Pregnanc y-induce d hyperten abigail 15989998 Active 37wk delivery , antenata l testing Re Little null, [facility] 5 12:27:56 Speciali zed medical examinat ion Completed 201305/23/2020 Other specifie d chlamydi al diseases ;Practic e ID: 0001 Jenn Solano MD [address], [place], [address], [facility] 0 16:44:24 Venereal disease screenin g Completed 201305/23/2020 Screenin g examinat ion for venereal disease; Practice ID: 0001 Jenn Solano MD [address], [place], [address], [facility] 0 16:44:40 Amenorrh ea 65413669 Completed 201405/23/2020 AMENORRH EA;Pract ice ID: 0001 Jenn Solano MD [address], [place], [address], [facility] 0 16:43:25 Pregnanc y test negative 093321564 Completed 201405/23/2020 Negative Pregnanc y Test;Pra ctice ID: 0001 Jenn Solano MD [address], [place], [address], [facility] 0 16:44:08 Female genital organ symptoms 955125569 Completed 201405/23/2020 Pelvic Pain;Pra ctice ID: 0001 Jenn Solano MD [address], [place], [address], [facility] 0 16:43:42 Leukorrh ea 779287971 Completed 201405/23/2020 Leukorrh ea, not specifie d as infectiv e;Practi ce ID: 0001 Jenn Solano MD [address], [place], [address], [facility] 0 16:44:00 Fever 603511732 Completed 201405/23/2020 FEVER NOS;Prac dorothy ID: 0001 Jenn Solano MD [address], [place], [address], [facility] 0 16:43:49 Nausea 462177153 Completed 201405/23/2020 Nausea alone;Pr actice ID: 0001 Jenn Solano MD [address], [place], [address], [facility] 0 16:44:03 Adult health examinat ion Completed 201405/23/2020 Routine general medical examinat ion at a health care facility ;Practic e ID: [address] MD [address], [place], [address] 0 16:43:27 Sexually transmit robby infectio us disease 8562319 Completed 201402/05/2021 Venereal disease, unspecif ied;Prac dorothy ID: 0001 Galilea Power montse, [facility] 1 10:29:40 Vaginola bial hernia Completed 201405/23/2020 Other specifie d noninfla mmatory disorder s of vagina;P ractice ID: 0001 Jenn Solano MD [address], [place], [address], [facility] 0 16:44:36 Pelvic and perineal pain 756609156 Completed 201405/23/2020 Pelvic and perineal pain;Pra ctice ID: 0001 Jenn Solano MD [address], [place], [address], [facility] 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 0 16:44:17 Educatio n Completed 201805/23/2020 Encounte r for other general counseli ng and advice on contrace ption;Re corded Elsewher e: No [facility] ource: EHR Marketing/Sales Person kwame: N Practi ce ID: 0001 Scott lable Time: 11:00:00 AM Jenn Solano MD [address], [place], [address], [facility] 0 16:43:35 Bleeding 340139999 Completed 201905/23/2020 Abnormal uterine bleeding ;Recorde d Elsewher e: No [facility] S ource: EHR Marketing/Sales Person kwame: N Practi ce ID: 0001 Scott lable Time: 10:15:00 AM Jenn Solano MD [address], [place], [address], [facility] 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 0 16:44:21 Increase d frequenc y of urinatio n 268250802 Completed 201705/23/2020 Frequenc y of micturit ion;Cosmo rded Elsewher e: No Locat ion: [facility] S ource: EHR Marketing/Sales Person kwame: N Practi ce ID: 0001 Scott lable Time: 08:30:00 AM Jenn Solano MD [address], [place], [address], [facility] 0 16:43:57 Disorder of breast 85241789 Completed 201605/23/2020 Disorder of breast, unspecif ied;Cosmo rded Elsewher e: No Locat ion: [facility] S ource: EHR Marketing/Sales Person kwame: N Practi ce ID: 0001 Scott lable Time: 09:30:00 AM Jenn Solano MD [address], [place], [address], [facility] 0 16:43:32 Finding of regulari ty of menstrua l cycle Completed 201905/23/2020 Irregula r menstrua tion, unspecif ied;Cosmo rded Elsewher e: No Locat ion: [facility] S ource: EHR Marketing/Sales Person kwame: N Practi ce ID: 0001 Scott lable Time: 09:30:00 AM Jenn Solano MD [address], [place], [address], [facility] [address] 16:43:[address] Concept Completed 201405/23/2020 Encntr for general adult medical exam w/o abnormal findings ;Recorde d Elsewher e: No [facility] S ource: EHR Marketing/Sales Person kwame: N Practi ce ID: 0001 Scott lable Time: 09:45:00 AM Jenn Solano MD [address], [place], [address], [facility] 0 16:44:12 Urinary tract infectio us disease 00443410 Completed 201705/23/2020 Urinary tract infectio n, site not specifie d;Record ed Elsewher e: No Locat ion: [facility] S ource: EHR Marketing/Sales Person wkame: N Practi ce ID: 0001 Scott lable Time: 08:30:00 AM Jenn Solano MD [address], [place], [address], [facility] 0 16:44:30 Atypical squamous cells of undeterm ined signific ance on cervical Papanico laou smear 062766987 Completed 201712/17/2021 [facility] 11:49:39 Acute vaginiti s 04212132 Completed 201705/23/2020 Acute vulvovag initis;R ecorded Elsewher e: No [facility]at [facility] S ource: EHR Marketing/Sales Person kwame: N Practi ce ID: 0001 Scott lable Time: 08:30:00 AM MD [address], [place], [address], [facility] 0 16:43:22 Evaluati on finding Completed 201705/23/2020 Hematuri a, unspecif ied;Comso rded Elsewher e: No Locat ion: Indigo puneet [facility] S ource: EHR Marketing/Sales Person kwame: N Practi ce ID: 0001 Scott lable Time: 08:30:00 AM Jenn Solano MD [address], [place], [address], [facility] 0 16:43:38 Herpes simplex 16952127 Completed 201512/17/2021 Irma willard [facility] 2 11:49:39 Atypical squamous cells on cervical Papanico laou smear cannot exclude high grade squamous intraepi thelial lesion 583461147 Completed 201802/05/2021 Galilea willard [facility] 1 10:41:03 Abnormal uterine bleeding 5307572302 9100 Completed 201802/05/2021 Other specifie d abnormal uterine and vaginal bleeding ;Practic e ID: 0001 Galilea willard [facility] 1 10:29:37 Problem Notes None recorded. Procedures Surgical History Date Name Laterality Status Provider Name and Address Organization Details Recorded Time 024 Date of Last Pap Smear completed Sherrie Blankenship [facility] 02/18/2024 17:17:49 022 thumb surgery completed Sherrie Blankenship [facility] 01/15/2024 12:37:08 022 hemorrhoidectomy completed Sherrie Blankenship [facility] 01/15/2024 12:36:55 021 Date of Last Colonoscopy completed Irma Lanier [facility] 12/17/2021 12:03:00 021 Colonoscopy completed Sherrie [facility] 01/15/2024 12:36:43 021 procedure on wrist completed Sherrie [facility] 01/15/2024 12:37:03 Imaging Results None recorded. Procedure Notes None recorded. Medical Equipment None Reported. Allergies Allergen ID Allergen Name Allergen Category Reaction Reaction Severity Criticality Documentation Date Start Date Code Code System Note Provider Name and Address Organization Details Recorded Time 573 cefdinir medicatio n Not available Not available Not available 10/06/2019 07861 RxNorm [address] [facility] 0 11:50:55 574 Product containin g cephalosp lidia (product) medicatio n Not available Not available Not available 10/06/2019 85034 9009 SNOMED Gayatri [facility] 0 11:51:08 575 citalopra m medicatio n Not available Not available Not available 10/06/2019 2556 RxNorm cital opram hydro bromi de Gayatri [facility] 0 11:51:56 576 Product containin g penicilli n (product) medicatio n Not available Not available Not available 10/06/2019 57997 8[facility] 0 11:52:07 Medications Name Sig [...] Prescrib ed Elsewher e: No Locat ion: [facility] odify By: david mcdaniel DateTime : 02/17/20 10:30:00 AM Not Available [...] Prescrib ed Elsewher e: Yes Loca tion: [facility] odify By: [email or web address] trick En counter [...] Prescrib ed Elsewher e: No Locat ion: [facility] odify By: [email or web address] trick En counter DateTime : 12/20/19 15 10:37:18 AM Not Available Not Available Not Available Diflucan 50 mg tablet take 2 tablet by oral route every day 01/12 completed Prescrib ed Elsewher e: Yes Loca tion: [facility] odify By: [email or web address] trick En counter DateTime : 12/15/19 15 09:00:00 AM Not Available Not Available Not Available Loestrin 06/14 (21) 1 mg-20 mcg tablet take 1 tablet by oral route every day 11/25 completed Prescrib ed Elsewher e: No Locat ion: [facility] odify By: carmelo koch DateTime : 11/04/19 03:55:59 PM Not Available Not Available Not Available Valtrex 1 gram tablet take 1 tablet by oral route every 24 hours 05/23 completed Prescrib ed Elsewher e: No Locat ion: [facility] odify By: lissette Montaño nter DateTime [...] Prescrib ed Elsewher e: No [facility] By: fabiola Teixeira ncounter DateTime : 10/29/19 18 03:01:34 PM Not [...] Prescrib ed Elsewher e: Yes [facility] By: [email or web address] trick En counter DateTime : 12/17/19 15 02:35:38 PM Not Available Not Available Not Available Zithromax 500 mg tablet Take 2 pills all at once by oral route 01/12 completed Prescrib ed Elsewher e: No Locat ion: [facility] odify By: [email or web address] trick En counter [...] Prescrib ed Elsewher e: Yes Loca tion: [facility] odify By: [email or web address] trick En counter DateTime : 12/15/19 15 09:00:00 AM Not Available Not Available Not Available Lexapro 5 mg tablet take 1 tablet by oral route every day 05/23 completed Prescrib ed Elsewher e: Yes Loca tion: [facility] odify By: [email or web address] z Encoun ter DateTime : 02/17/20 10:30:00 AM Not Available Not Available Not Available Ritalin LA 10 mg capsule,e xtended release take 1 capsule by oral route every day in the morning 05/23 completed Prescrib ed Elsewher e: Yes Loca tion: [facility] odify By: padmaja stahluntbrady DateTime : 06/01/19 03:30:00 PM Not Available [...] Elsewher e: No Locat ion: Indigo teixeira [facility] odify By: lissette Seniorou nter DateTime : 02/17/20 10:30:00 AM Not Available Not Available Not Available B12 5,000 mcg-100 mcg sublingua l lozenge 05/23 completed Prescrib ed Elsewher e: Yes Loca tion: Indigo teixeira [facility] odify By: padmaja lee DateTime : 06/01/19 03:30:00 PM Not Available Not Available Not Available ProChambe r USE DIRECTED 07/24 completed Not Available Not Available Not Available Gynazole- 1 2 % vaginal cream insert 1 applicat orful by vaginal route once 06/15 completed Prescrib ed Elsewher e: No Locat ion: [facility] te[facility] odify By: david Senioro unter DateTime : 02/19/20 01:26:20 PM Not Available Not Available Not Available Nasacort 55 mcg nasal spray aerosol 05/23 completed Prescrib ed Elsewher e: Yes Loca tion: [facility] teixeira [facility] odify By: padmaja lee DateTime : [...] Address Organization Details Last Updated DateTime 5 [address]39.4 3585 g 33.6 kg/m2 166.37 cm 155 mm[Hg] 101 mm[Hg] 160 mm[Hg] 108 mm[Hg] Sherrie Blankenship [facility] 13:14:30 Social History Question Answer Notes LastModified by Organizat ion Details LastModified Time Tobacco Smoking Status Never Smoker Naila Miller montse, [facility] 06/04/2023 09:52:40 Do You Have An Advance Directive? No Information n ot available 02/05/2021 What Is Your Level Of Alcohol Consumption? None [email or web address] Information not available 01/14/2024 If You Are , What Was Your Level Of Alcohol Consumption Prior To ? Occasional [email or web address] Information not available 01/14/2024 Are You Blind Or Do You Have Difficulty Seeing? No [email or web address] Information n ot available 02/05/2021 What Is Your Level Of Caffeine Consumption? Moderate Information not available 12/17/2021 How Much Tobacco Do You Chew? None Information not available 02/05/2021 In The 14 Days Before Symptom Onset, Have You Had Close Contact With A Laboratory-confirm ed COVID-19 While That Case Was Ill? No Information n ot available 02/05/2021 In The 14 Days Before Symptom Onset, Have You Had Close Contact With A Person Who Is Under Investigation For COVID-19 While That Person Was Ill? No [email or web address] Information not available 02/05/2021 Have You Been To An Area Known To Be High Risk For COVID-19? No [email or web address] Information not available 02/05/2021 Are You Deaf Or Do You Have Serious Difficulty Hearing? No [email or web address] Information not available 02/05/2021 What Type Of Diet Are You Following? REGULAR Information n ot available 02/05/2021 What Is The Highest Grade Or Level Of School You Have Completed Or The Highest Degree You Have Received? [id number] [email or web address] Information not available 02/05/2021 Are There Any Guns Present In Your Home? No Information not available 02/05/2021 Do You Use Protection During Sex? No Information not available 12/17/2021 Do You Use Your Seat Belt Or Car Seat Routinely? Yes [email or web address] Information not available 02/05/2021 Are You Sexually Active? Yes [email or web address] Information not available 06/10/2024 Do You Have Smoke And Carbon Monoxide Detectors In Your Home? No [email or web address] Information not available 02/05/2021 How Much Tobacco Do You Smoke? No [email or web address] Information not available 02/05/2021 Do You Feel Stressed (tense, Restless, Nervous, Or Anxious, Or Unable To Sleep At Night)? [id number] [email or web address] Information not available 02/05/2021 Do You Use Any Illicit Or Recreational Drugs? No [email or web address] Information not available 02/05/2021 Do You Use Sunscreen Routinely? No [email or web address] Information not available 02/05/2021 Have You Used IV Drugs? No [email or web address] Information not available 02/05/2021 Sex: Unknown Functional Status Question Answer Note LastModified by Organizat ion Details LastModified Time Do you have difficulty walking or climbing stairs? No [email or web address] Information not available 06/04/2023 Are you able to walk? YESWOREST [email or web address] Information not available 02/05/2021 Are you able to care for yourself? Yes [email or web address] Information not available 06/04/2023 Do you have difficulty dressing or bathing? No [email or web address] Information not available 06/04/2023 What is your exercise level? Occasional [email or web address] Information not available 02/18/2024 Mental Status None [...] Not available 2021 12:02:56 Mother Myocardial infarction [email or web address] Not available 12/25 12:37:37 Maternal Grandmother Hypertensive [...] (Food, seasonal, environmental ) Y Other N Drug/Latex Allergies/Reactions Y Breast Cancer N Blood Transfusion N Lung Disease N Dermatologic Disorders N Defects or Inherited Disease N Breast Problem N Gestational Diabetes N Hematologic disorders N Anesthesia Complications N History of STI Y Deep Vein Thrombosis N Polycystic ovary syndrome N Anxiety Disorder Y Autoimmune disease N Arthritis N Polyps N Infertility N History of abnormal pap Y Acid Reflux (GERD) Y Cancer N Varicosities N Stroke N Neurologic/Epilepsy Y Endometriosis N High Cholesterol N Headaches N Fibromyalgia N Kidney Disease N Heart Problems N Thyroid Problems N Kidney or Bladder Problems N GI Problems Y Eating Disorder [...] SNOMED-CT Code Diagnosis ICD10 Code Diagnosis Note [id number] Janice Lanier [place] [address] [address] 07/07/2024 09:24:38 07/07/2024 10:06:57 Placenta circumvallata 0971592 O43.113 Z3A.33 [id number] Katherin Hammond [facility] [address] [address] 07/07/2024 09:24:57 07/07/2024 10:26:33 Gestation period, 33 weeks 02414078 Z3A.33 [id number] Katherin Hammond [facility] [address],[place] [address] 07/16/2024 09:43:14 07/16/2024 10:06:11 Gestation period, 34 weeks 44361849 Z3A.34 [id number] Katherin Hammond [facility] [address],[place] [address] 07/23/2024 11:43:30 07/23/2024 12:37:39 screening 222782339 Z36.85 - induced hypertension 08788567 O13.9 Gestation period, 35 weeks 24143215 Z3A.35 [id number] Sherrie Blankenship [place] [address],[place], [place] [address] 07/23/2024 18:00:14 07/26/2024 02:46:21 -induced hypertension 05233140 O13.9 [id number] Sofia Wakefield Hudson [address],[place] [address] 07/28/2024 11:43:02 07/28/2024 13:33:13 Chronic hypertension complicating AND/OR reason for care during 63912307 O16.3 Z3A.36 [id number] [facility]atherin Hammond, [facility] [address] [address] 07/28/2024 11:43:24 07/28/2024 14:09:14 Gestation period, 36 weeks [id number] Z3A.36 Health Concerns Section Related Observation LastModified by Organization Detai ls LastModified Time None Recorded Concern Status LastModified by Organization Details LastModified Time None Recorded Payers Encounter Date Sequence Insurance Name Policy Number Policy Ellison Covered Member ID Ellison Member ID Guarantor Name 07/28/2024 1 [facility] [id number] Ira Zechariah [id number] Ira Apple OBGyn Episode Ob Episode Information Episode Created Date Number of Fetuses Patient Bloodtype Patient rh Status Prepregnancy Weight lbs Domestic Partner Domestic Partner Phone Father Name District Attorney Status 02/18/20 24 1 A Positive 153 OPEN Fetus Data First Name Last Name Admitted to NICU Weight (g) Sex Living Outcome Pediatric Complications Fetus ID Race Codes Race Delivery Type [id number] Problems Problem Notes Checking BS x 2 wk07/19/2024 referral to cardiology for chest pain and shortness of breathe had holter monitor done Cardiolgy consult scheduled Dr Nicholson 08/02/24 1030 Problem Name Start Date End Date Resolution Snomed Code Not e Blood glucose outside reference range 586883740 decided on 3 hr gtt sced 06/17 Mixed anxiety and depressive disorder 442157463 no curre nt meds Hemorrhoidectomy 92778168 202 2 with colonoscopy Placenta previa marginalis 21607671 resolved -induced hypertension 70304408 37wk delivery , testing Herpes simplex 80058601 on bl ood test, plan 36 week valtrex, as a precaution2/4 Outbreak Valtrex 500mg BID x3 days , followed by daily suppression until delivery Attention deficit hyperactivity disorder 604026836 no cu rrent meds Alber Calculation Initial [...] Type Weight in lbs Pre/Post Dialysis Refused 158.099830729865 BP Diastolic BP Location Tested BP Systolic BP Type 93 125 Fetus Heart Rate Present Fetus Movement A No Comments reviewed history, no current medications, moving from [place] to [place] this weekend with FOB, doing well, some stress after told family about , reviewed US, blood work complete, ok for flu and covid, start routine care Flowsheet Date 03/17/2024 Nunez Score Blood Edema Fundus Height Fundus Units Glucose Ketones Leukocytes Nitrite Labor Signs Protein Cervic Dilation Cervic Effacement Cervic Station none Type Weight in lbs Pre/Post Dialysis Refused 167.753074462640 BP Diastolic BP Location Tested BP Systolic [...] Weight in lbs Pre/Post Dialysis Refused Weight 168.006554116393 BP Diastolic BP Location Tested BP Systolic BP Type 85 L arm 126 sitting Fetus Heart Rate Present Fetus Movement Comments Flowsheet Date 03/31/2024 Nunez Score Blood Edema Fundus Height Fundus Units Glucose Ketones Leukocytes Nitrite Labor Signs Protein Cervic Dilation Cervic Effacement Cervic Station Type Weight in lbs Pre/Post Dialysis Refused Weight 168.638123013760 BP Diastolic BP Location Tested BP Systolic [...] Type Weight in lbs Pre/Post Dialysis Refused 171.567293395322 BP Diastolic BP Location Tested BP Systolic [...] Type Weight in lbs Pre/Post Dialysis Refused 182.954353864348 BP Diastolic BP Location Tested BP Systolic [...] Weight in lbs Pre/Post Dialysis Refused Weight 193.577676627439 BP Diastolic BP Location Tested BP Systolic [...] Type Weight in lbs Pre/Post Dialysis Refused 196.348269363237 BP Diastolic BP Location Tested BP Systolic BP Type 87 139 Fetus Heart Rate Present Fetus Movement A Yes Comments bp elevated last night with chest tightness, had this 2 years ago had echo and cardiac workup all was negative, went away and now back only at hs, feels fine now, will plan car lubricator. passed 3 hr GCTnormotensive today, +FM precautions [...] Type Weight in lbs Pre/Post Dialysis Refused 198.423935054325 BP Diastolic BP Location Tested BP Systolic [...] Type Weight in lbs Pre/Post Dialysis Refused 205.182757155449 BP Diastolic BP Location Tested BP Systolic [...] Type Weight in lbs Pre/Post Dialysis Refused 202.520177279169 BP Diastolic BP Location Tested BP Systolic [...] Weight in lbs Pre/Post Dialysis Refused Weight 202.613735759140 BP Diastolic BP Location Tested BP Systolic [...] Type Weight in lbs Pre/Post Dialysis Refused 205.475784041819 BP Diastolic BP Location Tested BP Systolic [...]
--- OUTSIDE RECORDS SUMMARY | 2024-07-28 13:48 | XMS_ITS | Encounter Summary ---
Author Organization [facility] Address [address] [place] [address] Care Team Providers Care Health Professor Name Role Phone Vikash Ibarra MD Primary Care Provider [phone] Encounter Details Date Type Department Care Team (Late st Contact Info) Description 07/25/2022 [employer] Message [facility] Patient Accounts [address] [place] [address] [facility], [facility] Provider Monthly Credit Card Payment Social [...] on filedocumented in this encounter Care Teams Health Professor Relationship Specialty Start Date End Date Vikash Ibarra MD [address] [place] [address] [address] [place] [address] PCP - General FAMILY PRACTICE 02/08/21 documented as of this encounter
--- OUTSIDE RECORDS SUMMARY | 2024-07-28 13:48 | XMS_ITS | Clinical Summary ---
Author Organization [facility] Address [address] [place] [address] Care Team Providers Care Accounting Methods Analyst Name Role Phone Vikash Ibarra MD Primary Care Provider [phone] Allergies Active Allergy Reactions Criticality Noted Date [...] 89 03/27/2022 1:18 PM CDT Temperature 36.8 C (98.2 F) 03/27/2022 1:18 PM CDT Respiratory Rate 20 03/27/2022 1:18 PM CDT [...] Years 2023 12/17/2021, 02/05/2021 COVID-19 Vaccine ( season) 2024 09/03/2020, 08/12/2020 Influenza Adult (#1) [...] patient's age to complete this topic Insurance [facility] Care Teams Accounting Methods Analyst Relationship Specialty Start Date End Date Vikash Ibarra MD [address] [place] [address] [address] [place] [address] PCP - General FAMILY PRACTICE 02/08/21
== END 2024-07-28 13:50 | disposition home or self-care (01) ==
LOC: ANHOBOP 12:30 → ANHOBPP 12:32
PROVIDERS: Advanced Practice Midwife; PCP Family Medicine; Visit Provider Obstetrics & Gynecology
DX: Z3A.00 Weeks of gestation of pregnancy not specified (principal)
CPT/HCPCS: 36415; 59025; 80053; 81001; 82570; 84156; 84550; 85025; 87086; 99199

== ENCOUNTER 2024-08-03 15:51 | Inpatient (IN) | payer OTHER, SELFPAY ==
[2024-08-03] VITALS (19 sets, daily range): BP systolic 121–172; BP diastolic 61–104; PULSE 79–126; TEMP 36.7–37.4; BMI 33.8
[2024-08-03 16:22] LABS: Basophils Absolute Auto 0.1 K/mm3 (0.0-0.1); Basophils Percent Auto 0.6 % (0.2-1.2); Eosinophils Absolute Auto 0.3 K/mm3 (0-0.3); Eosinophils Percent Auto 2.2 % (0-4.4); Hematocrit 34.6 % (37.0-47.0); Hemoglobin 11.6 g/dL (12.0-15.0); Immature Granulocyte Absolute 0.11 K/mm3 (0.00-0.031); Immature Granulocyte Percent A 0.9 % (0-0.5); Lymphocytes Absolute Auto 1.49 K/mm3 (0.9-3.2); Lymphocytes Percent Auto 11.9 % (18.3-44.2); Mean Corpuscular HGB Conc 33.5 g/dl (32-36); Mean Corpuscular Hemoglobin 30.4 pg (26-34); Mean Corpuscular Volume 90.6 fl (80-100); Mean Platelet Volume 9.5 fl (7.4-10.4); Monocytes Absolute Auto 0.9 K/mm3 (0.1-0.6); Monocytes Percent Auto 7.5 % (2.6-8.5); Neutrophils Absolute Auto 9.7 K/mm3 (1.3-6.7); Neutrophils Percent Auto 76.9 % (45.5-73.1); Platelet Count Result 251 k/mm3 (150-375); Red Blood Count 3.82 M/mm3 (4.2-5.4); White Blood Count 12.6 K/mm3 (4.5-10.0)
--- NOTE | 2024-08-03 16:25 | LDADM ---
This patient, Ira Apple, was admitted to Labor/Delivery/Recovery 104 on 08/03/24 at 15:51. Plans for labor, pain management and were discussed with patient. Patient/family oriented to hospital policies and general routines including ID bracelet, bed and alarms, visiting hours, pain management, procedures, bathroom and other care routines, personal items, smoking policy, room service/diet and guest tray routines, security routines, and visiting hours. Patient/Family are encouraged to report perceived risks to care and to ask questions if they do not understand what they are told or what they should do. See [facility]BI[employer] for further documentation.
[2024-08-03] MEDS: miSOPROStol 25 MCG TABLET 50 MCG BUCCAL ×2 (16:52→20:52)
[2024-08-03 17:01] LABS: Alanine Aminotransferase 18 U/L (6-35); Albumin Level 3.6 g/dL (3.5-5.1); Alkaline Phosphatase 104 U/L (38-126); Anion Gap 12 mmol/L (4-12); Aspartate Amino Transferase 16 U/L (14-36); Bilirubin,Total 0.2 mg/dL (0.2-1.3); Blood Urea Nitrogen 11 mg/dL (7-17); Calcium 8.9 mg/dL (8.4-10.2); Carbon Dioxide 15 mmol/L (22-30); Chloride 108 mmol/L (98-107); Estimated CRCL calculation 124 ml/min; Estimated Glomerular Filt Rate > 60; Glucose 131 mg/dL (65-110); Potassium 3.8 mmol/L (3.4-5.0); Sodium 135 mmol/L (137-145); Uric Acid 3.7 mg/dL (2.5-7.5)
[2024-08-03 17:15] LABS: HIV 1/2 Ab P24 Ag Result Negative (Negative)
[2024-08-03 17:24] LABS: Syphilis IgG/IgM Antibody Negative (Negative)
--- OUTSIDE RECORDS SUMMARY | 2024-08-03 17:47 | XMS_ITS | Clinical Summary ---
Author Organization [facility] Address [address] [place] [address] Phone Care Team Providers Care Procurement Technician Name Role Phone Vikash Ibarra MD Primary Care Provider [phone] Sami Andersen MD Unavailable [phone] Allergies Active Allergy Reactions Criticality Noted Date [...] Comments Blood Pressure 118/86 04/04/2021 12:33 PM [employer] Pulse 99 04/04/2021 12:33 PM [employer] Temperature 36.7 C (98 F) 04/04/2021 12:33 PM [employer] Respiratory Rate - - Oxygen Saturation 98% 04/04/2021 12:33 PM [employer] Inhaled Oxygen Concentration - - Weight 73.5 kg (162 lb) 04/04/2021 12:33 PM [employer] Height 167.6 cm (5' 6 ) 04/04/2021 12:33 PM [employer] Body Mass Index 26.15 04/04/2021 12:33 PM [employer] Plan of Treatment Health Maintenance Due Date [...] patient's age to complete this topic Insurance [facility] Care Teams Procurement Technician Relationship Specialty Start Date End Date Vikash Ibarra MD [address] [address] PCP - General Family Medicine 02/23/21 Sami Andersen MD [address] [facility] [address] [place] [address] Colon & Rectal Surgery 02/23/21
--- OUTSIDE RECORDS SUMMARY | 2024-08-03 17:47 | XMS_ITS | Data Portability ---
Author Organization [facility] [place] Address [address] [place] [address] Care Team Providers Care Bioengineer Name Role Phone ROSE LAROSE Primary Care Provider Assessment Encounter Date Assessment Date Assessment LastModified by Organization Details LastModified Time 07/23/2024 07/23/2024 Patient is _35__weeks . Discussed plan. [email or web address] Not available 07/23/2024 12:33:48 07/28/2024 07/28/2024 Patient is __36_weeks . Discussed plan. [email or web address] Not available 07/28/2024 14:05:05 Plan of Treatment Reminders Order Date Submit Date Provider Last Modified By Organization Details Last Modified Time Details Appointments U/S OB BPP 2024 09:30A M ULTRASOUND Not available Not available Not available INDUCTI ON 2024 04:00P M Katherin Hammond CNM Not available Not available Not available NST [...] Lab CBC w/ auto diff 2024 025 [facility] (Lab), [address], [place], [address], 07/26/2024 15:08:34 CMP, serum or plasma 2024 025 [facility] (Lab), [address], [place], [address], 07/26/2024 15:08:34 uric acid, serum or plasma 2024 025 [facility] (Lab), [address], [place], [address], 07/26/2024 15:08:34 protein :creati nine ratio, urine 2024 025 [facility] (Lab), [address], [place], [address], 07/26/2024 15:08:35 strepto coccus group B, culture , unspeci fied specime n 2024 025 [facility] (Lab), [address], [place], [address], 07/26/2024 15:08:35 Referral None recorde d. Procedures None recorde d. Surgeries None recorde d. Imaging US, obstetr ic, biophys ical profile + non-str ess test 2024 025 [email or web address] [place], [address], [address], [place], [address], 07/28/2024 17:38:23 non-str ess test 2024 025 [email or web address] , [address], [address], [place], [address], 07/30/2024 00:15:06 Medication Orders None recorde d. Patient TargetsNo targets recorded. Patient InstructionsNo instructions recorded. Reason for Referral None Reported. Results Created Date Observation Date Name Description Value Unit Range Abnormal Flag Note LastModifiedBy Organization Detail LastModifiedTime 07/16/19 25 07/16/2024 CBC W/DIF F WBC 9.8 10'3/ uL 3.5-10 .5 Not Available [facility] (Lab) [address], [place], [address], 07/18/2024 23:59:14 07/16/19 25 07/16/2024 CBC W/DIF F RBC 3.66 10'6/ uL (based on docume nted legal sex) 3.80-5 .20 low Not Available [facility] (Lab) [address], [place], [address], 07/18/2024 23:59:14 07/16/19 25 07/16/2024 CBC W/DIF F HGB 11.2 g/dL (based on docume nted legal sex) 11.6-1 5.4 low Not Available [facility] (Lab) [address], [place], [address], 07/18/2024 23:59:14 07/16/19 25 07/16/2024 CBC W/DIF F HCT 34.5 % (based on docume nted legal sex) 34.0-4 5.0 Not Available [facility] (Lab) [address] [place], [address], 07/18/2024 23:59:14 07/16/19 25 07/16/2024 CBC W/DIF F MCV 94.3 fL 80.0-9 9.0 Not Available [facility] (Lab) [address] [place], [address], 07/18/2024 23:59:14 07/16/19 25 07/16/2024 CBC W/DIF F MCH 30.6 pg 27.0-3 4.0 Not Available [facility] (Lab) [address], [place], [address], 07/18/2024 23:59:14 07/16/19 25 07/16/2024 CBC W/DIF F MCHC 32.5 g/dL 32.0-3 5.5 Not Available [facility] (Lab) [address], [place], [address], 07/18/2024 23:59:14 07/16/19 25 07/16/2024 CBC W/DIF F RDW 13.2 % 11.0-1 5.0 Not Available [facility] (Lab) [address], [place], [address], 07/18/2024 23:59:14 07/16/19 25 07/16/2024 CBC W/DIF F plt 254 10'3/ uL 150-40 0 Not Available [facility] (Lab) [address], [place], [address], 07/18/2024 23:59:14 07/16/19 25 07/16/2024 CBC W/DIF F MPV 10.5 fL 8.8-12 .1 Not Available [facility] (Lab) [address], [place], [address], 07/18/2024 23:59:14 07/16/19 25 07/16/2024 CBC W/DIF F neutrophils 74.0 % 34.0-7 3.0 high Not Available [facility] (Lab) [address], [place], [address], 07/18/2024 23:59:14 07/16/19 25 07/16/2024 CBC W/DIF F lymphocytes 11.9 % 15.0-5 0.0 low Not Available [facility] (Lab) [address], [place], [address], 07/18/2024 23:59:14 07/16/19 25 07/16/2024 CBC W/DIF F monocytes 9.0 % 1.0-15 .0 Not Available [facility] (Lab) [address], [place], [address], 07/18/2024 23:59:14 07/16/19 25 07/16/2024 CBC W/DIF F eosinophils 3.8 % 0.0-8. 0 Not Available [facility] (Lab) [address], [place], [address], 07/18/2024 23:59:14 07/16/19 25 07/16/2024 CBC W/DIF F basophils 0.6 % 0.0-2. 0 Not Available [facility] (Lab) [address], [place], [address], 07/18/2024 23:59:14 07/16/19 25 07/16/2024 CBC W/DIF [...] separ ately if prese nt. Not Available [facility] (Lab) [address], [place], [address], 07/18/2024 23:59:14 07/16/19 25 07/16/2024 CBC W/DIF F absolute neutrophils 7.2 10'3/ uL 1.5-8. 0 Not Available [facility] (Lab) [address], [place], [address], 07/18/2024 23:59:14 07/16/19 25 07/16/2024 CBC W/DIF F absolute lymphocytes 1.2 10'3/ uL 1.0-4. 0 Not Available [facility] (Lab) [address], [place], [address], 07/18/2024 23:59:14 07/16/19 25 07/16/2024 CBC W/DIF F absolute monocytes 0.9 10'3/ uL 0.2-1. 0 Not Available [facility] (Lab) [address], [place], [address], 07/18/2024 23:59:14 07/16/19 25 07/16/2024 CBC W/DIF F absolute eosinophils 0.4 10'3/ uL 0.0-0. 6 Not Available [facility] (Lab) [address], [place], [address], 07/18/2024 23:59:14 07/16/19 25 07/16/2024 CBC W/DIF F absolute basophils 0.1 10'3/ uL 0.0-0. 3 Not Available [facility] (Lab) [address], [place], [address], 07/18/2024 23:59:14 07/16/19 25 07/16/2024 CBC W/DIF [...] joyner book. nm.or g/gen derx Not Available [facility] (Lab) [address], [place], [address], 07/18/2024 23:59:14 07/16/19 25 07/16/2024 CMP(C OMPRE HENSI VE METAB OLIC PANEL ) sodium 137 mmol/ L 133-14 6 Not Available [facility] (Lab) [address], [place], [address], 07/18/2024 23:59:15 07/16/19 25 07/16/2024 CMP(C OMPRE HENSI VE METAB OLIC PANEL ) potassium 4.1 mmol/ L 3.5-5. 1 Not Available [facility] (Lab) [address], [place], [address], 07/18/2024 23:59:15 07/16/19 25 07/16/2024 CMP(C OMPRE HENSI VE METAB OLIC PANEL ) chloride 105 mmol/ L 98-107 Not Available [facility] (Lab) [address], [place], [address], 07/18/2024 23:59:15 07/16/19 25 07/16/2024 CMP(C OMPRE HENSI VE METAB OLIC PANEL ) carbon dioxide 23 mmol/ L 21-31 Not Available [facility] (Lab) [address], [place], [address], 07/18/2024 23:59:15 07/16/19 25 07/16/2024 CMP(C OMPRE HENSI VE METAB OLIC PANEL ) anion gap 9 mmol/ L 4-13 Not Available [facility] (Lab) [address], [place], [address], 07/18/2024 23:59:15 07/16/19 25 07/16/2024 CMP(C OMPRE HENSI VE METAB OLIC PANEL ) blood urea nitrogen 5 mg/dL 7-25 low Not Available [facility] (Lab) [address], [place], [address], 07/18/2024 23:59:15 07/16/19 25 07/16/2024 CMP(C OMPRE HENSI VE METAB OLIC PANEL ) creatinine 0.52 mg/dL 0.60-1 .30 low Not Available [facility] (Lab) [address], [place], [address], 07/18/2024 23:59:15 07/16/19 25 07/16/2024 CMP(C OMPRE HENSI VE METAB OLIC PANEL ) egfrcr (CKD-epi 2020) >90 mL/mi n/1.7 3_m2 >=60 Not Available [facility] (Lab) [address], [place], [address], 07/18/2024 23:59:15 07/16/19 25 07/16/2024 CMP(C OMPRE HENSI VE METAB OLIC PANEL ) calcium 8.9 mg/dL 8.3-10 .5 Not Available [facility] (Lab) [address], [place], [address], 07/18/2024 23:59:15 07/16/19 25 07/16/2024 CMP(C OMPRE HENSI VE METAB OLIC PANEL ) glucose 75 mg/dL 70-100 Not Available [facility] (Lab) [address], [place], [address], 07/18/2024 23:59:15 07/16/19 25 07/16/2024 CMP(C OMPRE HENSI VE METAB OLIC PANEL ) protein, total 6.0 g/dL 6.4-8. 3 low Not Available [facility] (Lab) [address], [place], [address], 07/18/2024 23:59:15 07/16/19 25 07/16/2024 CMP(C OMPRE HENSI VE METAB OLIC PANEL ) albumin 3.4 g/dL 3.5-5. 0 low Not Available [facility] (Lab) [address], [place], [address], 07/18/2024 23:59:15 07/16/19 25 07/16/2024 CMP(C OMPRE HENSI VE METAB OLIC PANEL ) ALT 11 units /L 9-43 Not Available [facility] (Lab) [address], [place], [address], 07/18/2024 23:59:15 07/16/19 25 07/16/2024 CMP(C OMPRE HENSI VE METAB OLIC PANEL ) alkaline phosphatase 81 units /L 34-104 Not Available [facility] (Lab) [address], [place], [address], 07/18/2024 23:59:15 07/16/19 25 07/16/2024 CMP(C OMPRE HENSI VE METAB OLIC PANEL ) AST 12 units /L 13-39 low Not Available [facility] (Lab) [address], [place], [address], 07/18/2024 23:59:15 07/16/19 25 07/16/2024 CMP(C OMPRE HENSI VE METAB OLIC PANEL ) bilirubin, total 0.3 mg/dL 0.2-1. 2 Not Available [facility] (Lab) [address], [place], [address], 07/18/2024 23:59:15 07/16/19 25 07/16/2024 URIC ACID uric acid 3.6 mg/dL 2.3-6. 6 Not Available [facility] (Lab) [address], [place], [address], 07/18/2024 23:59:15 07/16/19 25 07/16/2024 PROTE IN/CR EATIN INE RATIO , URINE creatinine, urine 50.1 mg/dL R-No refer ence range estab lishe d for this assay Not Available [facility] (Lab) [address] [place], [address], 07/18/2024 23:59:15 07/16/19 25 07/16/2024 PROTE IN/CR EATIN INE RATIO , URINE protein, urine 11 mg/dL R-No refer ence range estab lishe d for this assay Not Available [facility] (Lab) [address] [place], [address], 07/18/2024 23:59:15 07/16/19 25 07/16/2024 PROTE IN/CR [...] fican t prote inuri a. Not Available [facility] (Lab) [address], [place], [address], 07/18/2024 23:59:15 07/23/1907/23/2024 CBC W/DIF F WBC 9.9 10'3/ uL 3.5-10 .5 Not Available [facility] (Lab) [address], [place], [address], 07/26/2024 15:08:34 07/23/19 25 07/23/2024 CBC W/DIF F RBC 3.95 10'6/ uL (based on docume nted legal sex) 3.80-5 .20 Not Available [facility] (Lab) [address], [place], [address], 07/26/2024 15:08:34 07/23/1907/23/2024 CBC W/DIF F HGB 12.0 g/dL (based on docume nted legal sex) 11.6-1 5.4 Not Available [facility] (Lab) [address], [place], [address], 07/26/2024 15:08:34 07/23/1907/23/2024 CBC W/DIF F HCT 36.3 % (based on docume nted legal sex) 34.0-4 5.0 Not Available [facility] (Lab) [address] [place], [address], 07/26/2024 15:08:34 07/23/19 25 07/23/2024 CBC W/DIF F MCV 91.9 fL 80.0-9 9.0 Not Available [facility] (Lab) [address] [place], [address], 07/26/2024 15:08:34 07/23/19 25 07/23/2024 CBC W/DIF F MCH 30.4 pg 27.0-3 4.0 Not Available [facility] (Lab) [address], [place], [address], 07/26/2024 15:08:34 07/23/19 25 07/23/2024 CBC W/DIF F MCHC 33.1 g/dL 32.0-3 5.5 Not Available [facility] (Lab) [address], [place], [address], 07/26/2024 15:08:34 07/23/19 25 07/23/2024 CBC W/DIF F RDW 12.9 % 11.0-1 5.0 Not Available [facility] (Lab) [address], [place], [address], 07/26/2024 15:08:34 07/23/19 25 07/23/2024 CBC W/DIF F plt 269 10'3/ uL 150-40 0 Not Available [facility] (Lab) [address], [place], [address], 07/26/2024 15:08:34 07/23/19 25 07/23/2024 CBC W/DIF F MPV 10.3 fL 8.8-12 .1 Not Available [facility] (Lab) [address], [place], [address], 07/26/2024 15:08:34 07/23/19 25 07/23/2024 CBC W/DIF F neutrophils 73.6 % 34.0-7 3.0 high Not Available [facility] (Lab) [address], [place], [address], 07/26/2024 15:08:34 07/23/19 25 07/23/2024 CBC W/DIF F lymphocytes 13.4 % 15.0-5 0.0 low Not Available [facility] (Lab) [address], [place], [address], 07/26/2024 15:08:34 07/23/19 25 07/23/2024 CBC W/DIF F monocytes 9.3 % 1.0-15 .0 Not Available [facility] (Lab) [address], [place], [address], 07/26/2024 15:08:34 07/23/19 25 07/23/2024 CBC W/DIF F eosinophils 2.7 % 0.0-8. 0 Not Available [facility] (Lab) [address], [place], [address], 07/26/2024 15:08:34 07/23/19 25 07/23/2024 CBC W/DIF F basophils 0.5 % 0.0-2. 0 Not Available [facility] (Lab) [address], [place], [address], 07/26/2024 15:08:34 07/23/19 25 07/23/2024 CBC W/DIF [...] separ ately if prese nt. Not Available [facility] (Lab) [address], [place], [address], 07/26/2024 15:08:34 07/23/19 25 07/23/2024 CBC W/DIF F absolute neutrophils 7.3 10'3/ uL 1.5-8. 0 Not Available [facility] (Lab) [address], [place], [address], 07/26/2024 15:08:34 07/23/19 25 07/23/2024 CBC W/DIF F absolute lymphocytes 1.3 10'3/ uL 1.0-4. 0 Not Available [facility] (Lab) [address], [place], [address], 07/26/2024 15:08:34 07/23/19 25 07/23/2024 CBC W/DIF F absolute monocytes 0.9 10'3/ uL 0.2-1. 0 Not Available [facility] (Lab) [address], [place], [address], 07/26/2024 15:08:34 07/23/19 25 07/23/2024 CBC W/DIF F absolute eosinophils 0.3 10'3/ uL 0.0-0. 6 Not Available [facility] (Lab) [address], [place], [address], 07/26/2024 15:08:34 07/23/19 25 07/23/2024 CBC W/DIF F absolute basophils 0.1 10'3/ uL 0.0-0. 3 Not Available [facility] (Lab) [address], [place], [address], 07/26/2024 15:08:34 07/23/19 25 07/23/2024 CBC W/DIF [...] joyner book. nm.or g/gen derx Not Available [facility] (Lab) [address], [place], [address], 07/26/2024 15:08:34 07/23/19 25 07/23/2024 CMP(C OMPRE HENSI VE METAB OLIC PANEL ) sodium 136 mmol/ L 133-14 6 Not Available [facility] (Lab) [address], [place], [address], 07/26/2024 15:08:34 07/23/19 25 07/23/2024 CMP(C OMPRE HENSI VE METAB OLIC PANEL ) potassium 4.2 mmol/ L 3.5-5. 1 Not Available [facility] (Lab) [address], [place], [address], 07/26/2024 15:08:34 07/23/19 25 07/23/2024 CMP(C OMPRE HENSI VE METAB OLIC PANEL ) chloride 102 mmol/ L 98-107 Not Available [facility] (Lab) [address], [place], [address], 07/26/2024 15:08:34 07/23/19 25 07/23/2024 CMP(C OMPRE HENSI VE METAB OLIC PANEL ) carbon dioxide 23 mmol/ L 21-31 Not Available [facility] (Lab) [address], [place], [address], 07/26/2024 15:08:34 07/23/19 25 07/23/2024 CMP(C OMPRE HENSI VE METAB OLIC PANEL ) anion gap 11 mmol/ L 4-13 Not Available [facility] (Lab) [address], [place], [address], 07/26/2024 15:08:34 07/23/19 25 07/23/2024 CMP(C OMPRE HENSI VE METAB OLIC PANEL ) blood urea nitrogen 9 mg/dL 7-25 Not Available [facility] (Lab) [address], [place], [address], 07/26/2024 15:08:34 07/23/19 25 07/23/2024 CMP(C OMPRE HENSI VE METAB OLIC PANEL ) creatinine 0.59 mg/dL 0.60-1 .30 low Not Available [facility] (Lab) [address], [place], [address], 07/26/2024 15:08:34 07/23/19 25 07/23/2024 CMP(C OMPRE HENSI VE METAB OLIC PANEL ) egfrcr (CKD-epi 2020) >90 mL/mi n/1.7 3_m2 >=60 Not Available [facility] (Lab) [address], [place], [address], 07/26/2024 15:08:34 07/23/19 25 07/23/2024 CMP(C OMPRE HENSI VE METAB OLIC PANEL ) calcium 9.3 mg/dL 8.3-10 .5 Not Available [facility] (Lab) [address], [place], [address], 07/26/2024 15:08:34 07/23/19 25 07/23/2024 CMP(C OMPRE HENSI VE METAB OLIC PANEL ) glucose 68 mg/dL 70-100 low Not Available [facility] (Lab) [address], [place], [address], 07/26/2024 15:08:34 07/23/19 25 07/23/2024 CMP(C OMPRE HENSI VE METAB OLIC PANEL ) protein, total 6.9 g/dL 6.4-8. 3 Not Available [facility] (Lab) [address], [place], [address], 07/26/2024 15:08:34 07/23/19 25 07/23/2024 CMP(C OMPRE HENSI VE METAB OLIC PANEL ) albumin 3.7 g/dL 3.5-5. 0 Not Available [facility] (Lab) [address], [place], [address], 07/26/2024 15:08:34 07/23/19 25 07/23/2024 CMP(C OMPRE HENSI VE METAB OLIC PANEL ) ALT 11 units /L 9-43 Not Available [facility] (Lab) [address], [place], [address], 07/26/2024 15:08:34 07/23/19 25 07/23/2024 CMP(C OMPRE HENSI VE METAB OLIC PANEL ) alkaline phosphatase 94 units /L 34-104 Not Available [facility] (Lab) [address], [place], [address], 07/26/2024 15:08:34 07/23/19 25 07/23/2024 CMP(C OMPRE HENSI VE METAB OLIC PANEL ) AST 14 units /L 13-39 Not Available [facility] (Lab) [address], [place], [address], 07/26/2024 15:08:34 07/23/19 25 07/23/2024 CMP(C OMPRE HENSI VE METAB OLIC PANEL ) bilirubin, total 0.3 mg/dL 0.2-1. 2 Not Available [facility] (Lab) [address], [place], [address], 07/26/2024 15:08:34 07/23/19 25 07/23/2024 URIC ACID uric acid 3.5 mg/dL 2.3-6. 6 Not Available [facility] (Lab) [address], [place], [address], 07/26/2024 15:08:34 07/23/19 25 07/23/2024 PROTE IN/CR EATIN INE RATIO , URINE creatinine, urine 64.1 mg/dL R-No refer ence range estab lishe d for this assay Not Available [facility] (Lab) [address] [place], [address], 07/26/2024 15:08:35 07/23/19 25 07/23/2024 PROTE IN/CR EATIN INE RATIO , URINE protein, urine 9 mg/dL R-No refer ence range estab lishe d for this assay Not Available [facility] (Lab) [address] [place], [address], 07/26/2024 15:08:35 07/23/19 25 07/23/2024 PROTE IN/CR [...] fican t prote inuri a. Not Available [facility] (Lab) [address], [place], [address], 07/26/2024 15:08:35 07/23/19 25 07/23/2024 CULTU RE: [...] t Abnor mal: No Resul ting Lab: [facility] [address] [facility] [address] Tel: CULTU RE ----- ----- ----- --- No Group B strep isola robby at 2 days (vic ctive broth enhan cemen t) Not Available [facility] (Lab) [address], [place], [address], 07/26/2024 15:08:35 06/28/19 25 06/28/2024 US, obste tric, limit ed No observ ation record ed. [email or web address] [place] [address], [place], [address], 06/28/2024 16:26:57 06/28/19 25 06/28/2024 US, obste tric, limit ed No observ ation record ed. [email or web address] [address], [place], [address], 06/28/2024 21:45:19 07/07/19 25 07/07/2024 US, obste tric, follo w-up No observ ation record ed. [email or web address] [place] [address], [place], [address], 07/07/2024 12:50:28 07/07/19 25 07/07/2024 US, obste tric, follo w-up No observ ation record ed. [address] [facility], [place], [address], 07/12/2024 09:58:53 07/08/19 25 06/29/2024 johana r monit or No observ ation record ed. [address], [address], 07/19/2024 16:01:44 07/08/19 25 06/29/2024 johana r monit or No observ ation record ed. [address] (Neurology) [address] [place] [address], [address], 07/19/2024 16:01:45 07/23/19 25 07/23/2024 non-s tress test No observ ation record ed. [email or web address] [place] [address], [place], [address], 07/23/2024 18:04:10 07/23/19 25 07/23/2024 non-s tress test No observ ation record ed. [email or web address] [place] [address], [place], [address], 07/23/2024 18:18:35 07/29/19 25 07/28/2024 US, stan palafox, bioph ysica l profi le + non-s tress test No observ ation record ed. [email or web address] [place] [address], [place], [address], 07/28/2024 18:46:08 07/29/1907/28/2024 US, obste tric, bioph ysica l profi le + non-s tress test No observ ation record ed. [email or web address] [address], [place], [address], 07/28/2024 21:06:05 07/30/19 25 07/29/2024 non-s tress test No observ ation record ed. [email or web address] [place] [address], [place], [address], 07/29/2024 09:42:10 Result Notes None recorded. Problems Name Problem SNOMED Code Status Onset Date Resolution Date Notes Provider Name and Address Organization Details Recorded Time Mixed anxiety and depressi ve disorder 743024469 Active no current meds Katherin Hammond CNM [address], [place], [address], [facility] 4 18:13:46 Attentio n deficit hyperact ivity disorder 562844878 Active no current meds Katherin Hammond CNM [address], [place], [address], [facility] 4 18:13:41 Human papillom a virus infectio n 597050290 Active Katherin Hammond CNM [address], [place], [address], [facility] 4 18:11:59 Herpesvi jhon infectio n 82949075 Active 2023 Sherrie willard, [facility] 4 17:47:43 Abnormal cervical Papanico laou smear 496327323 Active 2023 8 ascus hpv Sherrie Blankenship null, [facility] 4 17:48:39 Pregnanc y 20651037 Active 2023 Sherrie Blankenship null, [facility] 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 5 17:39:03 Mixed anxiety and depressi ve disorder 556306287 Active no current meds Katherin Hammond CNM [address], [place], [address], [facility] 4 18:13:46 Attentio n deficit hyperact ivity disorder 860079296 Active no current meds Katherin Hammond CNM [address], [place], [address], [facility] 4 18:13:41 Hemorrho idectomy Active 2021 with colonosc opy Katherin Hammond CNM [address], [place], [address], [facility] 4 18:13:32 Placenta previa marginal is 49627457 Active resolved Katherin Hammond CNM [address], [place], [address], [facility] 4 10:41:39 Blood glucose outside referenc e range 519610394 Active decided on 3hr gtt sced 06/17 Re willard, [facility] 5 14:32:15 Blood glucose outside referenc e range 449159564 Active decided on 3hr gtt sced 06/17 Re willard, [facility] 5 14:32:15 Pregnanc y-induce d hyperten abigail 17366122 Active 37wk delivery , antenata l testing Re Little null, [facility] 5 12:27:56 Pregnanc y-induce d hyperten abigail 65871663 Active 37wk delivery , antenata l testing Re Little null, [facility] 5 12:27:56 Speciali zed medical examinat ion Completed 201305/23/2020 Other specifie d chlamydi al diseases ;Practic e ID: [id number] Jenn Solano MD [address], [place], [address], [facility] 0 16:44:24 Venereal disease screenin g Completed 201305/23/2020 Screenin g examinat ion for venereal disease; Practice ID: 0001 Jenn Solano MD [address], [place], [address], [facility] 0 16:44:40 Amenorrh ea 33648516 Completed 201405/23/2020 AMENORRH EA;Pract ice ID: 0001 Jenn Solano MD [address], [place], [address], [facility] 0 16:43:25 Pregnanc y test negative 778871477 Completed 201405/23/2020 Negative Pregnanc y Test;Pra ctice ID: 0001 Jenn Solano MD [address], [place], [address], [facility] 0 16:44:08 Female genital organ symptoms 323791205 Completed 201405/23/2020 Pelvic Pain;Pra ctice ID: 0001 Jenn Solano MD [address], [place], [address], [facility] 0 16:43:42 Leukorrh ea 279975517 Completed 201405/23/2020 Leukorrh ea, not specifie d as infectiv e;Practi ce ID: 0001 Jenn Solano MD [address], [place], [address], [facility] 0 16:44:00 Fever 596912319 Completed 201405/23/2020 FEVER NOS;Prac dorothy ID: 0001 Jenn Solano MD [address], [place], [address], [facility] 0 16:43:49 Nausea 654603488 Completed 201405/23/2020 Nausea alone;Pr actice ID: 0001 Jenn Solano MD [address], [place], [address], [facility] 0 16:44:03 Adult health examinat ion Completed 201405/23/2020 Routine general medical examinat ion at a health care facility ;Practic e ID: 0001 Jenn Solano MD [address], [place], [address], [facility] 0 16:43:27 Sexually transmit robby infectio us disease 7318213 Completed 201402/05/2021 Venereal disease, unspecif ied;Prac dorothy ID: 0001 Galilea willard, [facility] 1 10:29:40 Vaginola bial hernia Completed 201405/23/2020 Other specifie d noninfla mmatory disorder s of vagina;P ractice ID: 0001 Jenn Solano MD [address], [place], [address], [facility] 0 16:44:36 Pelvic and perineal pain 592291762 Completed 201405/23/2020 Pelvic and perineal pain;Pra ctice ID: 0001 Jenn Solano MD [address], [place], [address], [facility] 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 0 16:44:17 Educatio n Completed 201805/23/2020 Encounte r for other general counseli ng and advice on contrace ption;Re corded Elsewher e: No Locat ion: [facility] S ource: EHR Behavioral Science Chair kwame: N Lyndsayti ce ID: 0001 Scott lable Time: 11:00:00 AM Jenn Solano MD [address], [place], [address], [facility] 0 16:43:35 Bleeding [id number] Completed 201905/23/2020 Abnormal uterine bleeding ;Recorde d Elsewher e: No Locat ion: [facility] S ource: EHR Behavioral Science Chair kwame: N Practi ce ID: 0001 Scott lable Time: 10:15:00 AM Jenn Solano MD [address], [place], [address], [facility] 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 0 16:44:21 Increase d frequenc y of urinatio n 412883869 Completed 201705/23/2020 Frequenc y of micturit ion;Cosmo rded Elsewher e: No [facility] S ource: EHR Behavioral Science Chair kwame: N Lyndsayti ce ID: 0001 Scott lable Time: 08:30:00 AM Jenn Solano MD [address], [place], [address], [facility] 0 16:43:57 Disorder of breast 67861673 Completed 201605/23/2020 Disorder of breast, unspecif ied;Cosmo rded Elsewher e: No Locat ion: [facility] S ource: EHR Behavioral Science Chair kwame: N Montez ce ID: 0001 Scott lable Time: 09:30:00 AM Jenn Solano MD [address], [place], [address], [facility] 0 16:43:32 Finding of regulari ty of menstrua l cycle Completed 201905/23/2020 Irregula r menstrua tion, unspecif ied;Cosmo rded Elsewher e: No Locat ion: [facility] S ource: EHR Behavioral Science Chair kwame: N Lyndsayti ce ID: 0001 Scott lable Time: 09:30:00 AM Jenn Solano MD [address], [place], [address], [facility] [address] 16:43:[address] Concept Completed 201405/23/2020 Encntr for general adult medical exam w/o abnormal findings ;Recorde d Elsewher e: No [facility]at [facility] S ource: EHR Behavioral Science Chair kwame: N Practi ce ID: 0001 Scott lable Time: 09:45:00 AM Jenn Solano MD [address], [place], [address], [place] [facility] 0 16:44:12 Urinary tract infectio us disease 73989962 Completed 201705/23/2020 Urinary tract infectio n, site not specifie d;Record ed Elsewher e: No Locat ion: [facility] S ource: EHR Behavioral Science Chair kwame: N Montez ce ID: 0001 Scott lable Time: 08:30:00 AM Jenn Solano MD [address], [place], [address], [facility] 0 16:44:30 Atypical squamous cells of undeterm ined signific ance on cervical Papanico laou smear 571407740 Completed 201712/17/2021 Irma willard, [facility] 2 11:49:39 Acute vaginiti s 63818863 Completed 201705/23/2020 Acute vulvovag initis;R ecorded Elsewher e: No Locat ion: [facility] S ource: EHR Behavioral Science Chair kwame: N Montez ce ID: 0001 Scott lable Time: 08:30:00 AM Jenn Solano MD [address], [place], [address], [facility] 0 16:43:22 Evaluati on finding Completed 201705/23/2020 Hematuri a, unspecif ied;Cosmo rded Elsewher e: No Locat ion: [facility] S ource: EHR Behavioral Science Chair kwame: N Montez ce ID: 0001 Scott lable Time: 08:30:00 AM Jenn Solano MD [address], [place], [address], [facility] 0 16:43:38 Herpes simplex 57284607 Completed 201512/17/2021 Irma [facility] 11:49:39 Atypical squamous cells on cervical Papanico laou smear cannot exclude high grade squamous intraepi thelial lesion 433770766 Completed 201802/05/2021 [employer] [facility] 10:41:03 Abnormal uterine bleeding 5146394848 9100 Completed 201802/05/2021 Other specifie d abnormal uterine and vaginal bleeding ;Practic e ID: 0001 [employer] [facility] 10:29:37 Problem Notes None recorded. Procedures Surgical History Date Name Laterality Status Provider Name and Address Organization Details Recorded Time 024 Date of Last Pap Smear completed [facility] 02/18/2024 17:17:49 022 thumb surgery completed [facility] 01/15/2024 12:37:08 022 hemorrhoidectomy completed [facility] 01/15/2024 12:36:55 021 Date of Last Colonoscopy completed [facility] 12/17/2021 12:03:00 021 Colonoscopy completed [facility] 01/15/2024 12:36:43 021 procedure on wrist completed [facility] 01/15/2024 12:37:03 Imaging Results Imaging Date Name Status LastModified by Organiz ation Details LastModified Time 06/28/2024 US, obstetric, limited completed [email or web address] [facility] [address], [place], [address], 06/28/2024 16:26:57 06/28/2024 US, obstetric, limited completed [email or web address] [address], [place], [address], 06/28/2024 21:45:19 07/07/2024 US, obstetric, follow-up completed [email or web address] [facility] [address], [place], [address], 07/07/2024 12:50:28 07/07/2024 US, obstetric, follow-up completed [email or web address] [address], [place], [address], 07/12/2024 09:58:53 06/29/2024 holter monitor completed [address], [address], 07/19/2024 16:01:44 06/29/2024 holter monitor completed [address] (Neurology) [address] [place] [address], [address], 07/19/2024 16:01:45 07/23/2024 non-stress test completed [address], [place], [address], 07/23/2024 18:04:10 07/23/2024 non-stress test completed [address], [place], [address], 07/23/2024 18:18:35 07/28/2024 US, obstetric, biophysical profile + non-stress test completed [email or web address] [facility] [address], [place], [address], 07/28/2024 18:46:08 07/28/2024 US, obstetric, biophysical profile + non-stress test completed [email or web address] [address], [place], [address], 07/28/2024 21:06:05 07/29/2024 non-stress test completed [facility] [address], [place], [address], 07/29/2024 09:42:10 Procedure Notes None recorded. Medical Equipment None Reported. Allergies Allergen ID Allergen Name Allergen Category Reaction Reaction Severity Criticality Documentation Date Start Date Code Code System Note Provider Name and Address Organization Details Recorded Time 573 cefdinir medicatio n Not available Not available Not available 10/06/2019 91251 RxNorm Gayatri Chong [facility] 0 11:50:55 574 Product containin g cephalosp lidia (product) medicatio n Not available Not available Not available 10/06/2019 63343 9009 SNOMED [facility] 11:51:08 575 citalopra m medicatio n Not available Not available Not available 10/06/2019 2556 RxNorm cital opram hydro bromi de Gayatri [facility] 0 11:51:56 576 Product containin g penicilli n (product) medicatio n Not available Not available Not available 10/06/[address] [facility] 11:52:07 Medications Name [...] Prescrib ed Elsewher e: No Locat ion: [facility] odify By: david mcdaniel DateTime : 02/17/20 19 10:30:00 AM [...] Not Available Flonase 50 mcg/actua tion nasal spray,abiley pension spray 1 spray by intranas al route every day in each nostril 01/12 completed Prescrib ed Elsewher e: Yes Loca tion: [facility] odify By: [email or web address] trick En counter DateTime : 06/30/19 15 02:30:00 PM Not Available Not Available Not Available metronida zole 500 mg tablet 01/16 /2025 completed Not Available Not Available Not Available [...] Prescrib ed Elsewher e: No Locat ion: [facility] odify By: [email or web address] trick En counter DateTime : 12/20/19 15 10:37:18 AM Not Available Not Available Not Available Diflucan 50 mg tablet take 2 tablet by oral route every day 01/12 completed Prescrib ed Elsewher e: Yes Loca tion: [facility] odify By: [email or web address] trick En counter DateTime : 12/15/19 15 09:00:00 AM Not Available Not Available Not Available Loestrin 06/14 (21) 1 mg-20 mcg tablet take 1 tablet by oral route every day 11/25 completed Prescrib ed Elsewher e: No Locat ion: [facility] odify By: carmelo koch DateTime : 11/04/19 03:55:59 PM Not Available Not Available Not Available Valtrex 1 gram tablet take 1 tablet by oral route every 24 hours 05/23 completed Prescrib ed Elsewher e: No Locat ion: [facility] odify By: lissette quiñoneser DateTime : 02/17/20 19 10:30:00 AM Not [...] Prescrib ed Elsewher e: No Locat ion: [facility] odify By: fabiola Teixeira ncounter DateTime : [...] Prescrib ed Elsewher e: Yes Loca tion: [facility] odify By: [email or web address] trick En counter DateTime : 12/17/19 15 02:35:38 PM Not Available Not Available Not Available Zithromax 500 mg tablet Take 2 pills all at once by oral route 01/12 completed Prescrib ed Elsewher e: No Locat ion: [facility] odify By: [email or web address] [...] Prescrib ed Elsewher e: Yes [facility] odify By: [email or web address] trick En counter DateTime : 12/15/19 15 09:00:00 AM Not Available Not Available Not Available Lexapro 5 mg tablet take 1 tablet by oral route every day 05/23 completed Prescrib ed Elsewher e: Yes [facility]oca [facility] odify By: [email or web address] z Encoun ter DateTime : 02/17/20 10:30:00 AM Not Available Not Available Not Available Ritalin LA 10 mg capsule,e xtended release take 1 capsule by oral route every day in the morning 05/23 completed Prescrib ed Elsewher e: Yes Loca tion: [facility] odify By: padmaja stahluntbrady DateTime : 06/01/19 [...] Elsewher e: No Locat ion: [facility] odify By: lissette Seniorou nter DateTime : 02/17/20 10:30:00 AM Not Available Not Available Not Available B12 5,000 mcg-100 mcg sublingua l lozenge 05/23 completed Prescrib ed Elsewher e: Yes Loca tion: [facility] odify By: padmaja lee DateTime : 06/01/19 03:30:00 PM Not Available Not Available Not Available ProChambe r USE DIRECTED 07/24 completed Not Available Not Available Not Available Gynazole- 1 2 % vaginal cream insert 1 applicat orful by vaginal route once 06/15 completed Prescrib ed Elsewher e: No Locat ion: [facility] odify By: david Senioro unter DateTime : 02/19/20 01:26:20 PM Not Available Not Available Not Available Nasacort 55 mcg nasal spray aerosol 05/23 completed Prescrib ed Elsewher e: Yes Loca tion: [facility] odify By: padmaja lee DateTime : 06/01/19 [...] Address Organization Details Last Updated DateTime 5 41784.6 5874 g 33.1 kg/m2 166.37 cm 166.37 cm 33.1 kg/m2 77318.6 6 g 132 mm[Hg] 93 mm[Hg] 132 mm[Hg] 93 mm[Hg] Sherrie Blankenship [facility] 5 18:01:57 Date Recorded Body weight Body mass index (BMI) Body height Systolic blood pressure Diastolic blood pressure Systolic blood pressure Diastolic blood pressure Provider Name and Address Organization Details Last Updated DateTime 5 70245.4 3585 g 33.6 kg/m2 166.37 cm 155 mm[Hg] 101 mm[Hg] 160 mm[Hg] 108 mm[Hg] Sherrie Blankenship [facility] 5 13:14:30 Date Recorded Body height Provider Name an d Address Organization Details Last Updated DateTime 07/28/2024 166.37 cm Shantell Bateman [facility] 07/29/2024 09:41:41 Social History Question Answer Notes LastModified by Organizat ion Details LastModified Time Tobacco Smoking Status Never Smoker Naila Miller montse, [facility] 06/04/2023 09:52:40 Do You Have An Advance Directive? No [email or web address] Information n ot available 02/05/2021 What Is Your Level Of Alcohol Consumption? None [email or web address] Information not available 01/14/2024 If You Are , What Was Your Level Of Alcohol Consumption Prior To ? Occasional [email or web address] Information not available 01/14/2024 Are You Blind Or Do You Have Difficulty Seeing? No [email or web address] Information n ot available 02/05/2021 What Is Your Level Of Caffeine Consumption? Moderate Information not available 12/17/2021 How Much Tobacco Do You Chew? None Information not available 02/05/2021 In The 14 Days Before Symptom Onset, Have You Had Close Contact With A Laboratory-confirm ed COVID-19 While That Case Was Ill? No [email or web address] Information n ot available 02/05/2021 In The 14 Days Before Symptom Onset, Have You Had Close Contact With A Person Who Is Under Investigation For COVID-19 While That Person Was Ill? No [email or web address] Information not available 02/05/2021 Have You Been To An Area Known To Be High Risk For COVID-19? No [email or web address] Information not available 02/05/2021 Are You Deaf Or Do You Have Serious Difficulty Hearing? No [email or web address] Information not available 02/05/2021 What Type Of Diet Are You Following? REGULAR [email or web address] Information n ot available 02/05/2021 What Is The Highest Grade Or Level Of School You Have Completed Or The Highest Degree You Have Received? [id number] Information not available 02/05/2021 Are There Any Guns Present In Your Home? No [email or web address] Information not available 02/05/2021 Do You Use Protection During Sex? No Information not available 12/17/2021 Do You Use Your Seat Belt Or Car Seat Routinely? Yes Information not available 02/05/2021 Are You Sexually Active? Yes [email or web address] Information not available 06/10/2024 Do You Have Smoke And Carbon Monoxide Detectors In Your Home? No Information not available 02/05/2021 How Much Tobacco Do You Smoke? No [email or web address] Information not available 02/05/2021 Do You Feel Stressed (tense, Restless, Nervous, Or Anxious, Or Unable To Sleep At Night)? [id number] [email or web address] Information not available 02/05/2021 Do You Use Any Illicit Or Recreational Drugs? No [email or web address] Information not available 02/05/2021 Do You Use Sunscreen Routinely? No [email or web address] Information not available 02/05/2021 Have You Used IV Drugs? No [email or web address] Information not available 02/05/2021 Sex: Unknown Functional Status Question Answer Note LastModified by Organizat ion Details LastModified Time Do you have difficulty walking or climbing stairs? No [email or web address] Information not available 06/04/2023 Are you able to walk? YESWOREST [email or web address] Information not available 02/05/2021 Are you able to care for yourself? Yes [email or web address] Information not available 06/04/2023 Do you have difficulty dressing or bathing? No [email or web address] Information not available 06/04/2023 What is your exercise level? Occasional [email or web address] Information not available 02/18/2024 Mental Status None recorded. Family History Relationship Description Onset Age of this Age Resolved Age Notes LastModified by Organization Details LastModified Time Mother Asthma [email or web address] Not available 12:02:56 Mother Diabetes mellitus [email or web address] Not available 2019 11:52:51 Mother Hypertensive disorder [email or web address] Not available 2019 11:53:19 Mother Female infertility [email or web address] Not available 07/24 12:50:16 Mother Cyst of ovary Not available 2024 12:50:16 Mother Polycystic ovary syndrome [email or web address] Not available 2024 12:50:16 Mother Anxiety disorder [email or web address] Not available 2020 10:34:10 Mother Mental disorder [email or web address] Not available 2020 10:34:10 Mother Depressive disorder [email or web address] Not available 2021 12:02:56 Mother Heart disease [email or web address] Not available 2021 12:02:56 Mother Myocardial infarction [email or web address] Not available 12/25 12:37:37 Maternal Grandmother Hypertensive disorder [email or web address] Not available 2019 11:53:19 Father Hypertensive disorder jgumber Not available 2019 11:53:19 Maternal Grandfather Family history of blood coagulation disorder [email or web address] Not available 2024 12:50:16 Paternal Grandmother Depressive disorder [email or web address] Not available [...] ICD10 Code Diagnosis Note [id number] Henny Joseph [facility] [address] [address] 10/06/2019 11:38:39 10/07/2019 10:48:16 Acute urinary tract infection 699727315 N39.0 Increase water and decrease caffeine. WIll start macrobid and send out diflucan since she is prone to yeast infections . Pt is also agreeable to have STD screening from urine. [id number] [facility] [address] [address] 10/27/2019 10:28:54 10/27/2019 11:24:47 Dysuria 66682322 R30.9 R35.0 Patient is here today for [...] of care. Urinary tr act infectious disease 88993616 N39.0 [id number] Mirian Chandler [facility] [address],[place] [address] 03/13/2020 10:23:48 03/14/2020 13:16:27 Urinary tract infectious disease 45008704 N39.0 Urine dip sent for culture/UA . Will treat based on sx's & await return of results. [id number] Kris Huynh MD [facility] [address],[place] [address] 03/18/2020 10:13:08 03/18/2020 13:40:22 Sexually transmitted infectious disease 0271643 A64 this patient is a 25-year-ol d [...] the portal.She willbe contacted for abnormal results. [id number] Kris Huynh MD [facility] [address],[place] [address] 04/17/2020 15:02:49 04/17/2020 15:55:17 Infection by Trichomonas 50410752 A59.9 this patient is a 25-year-ol d female presents for test of cure for Trichomona s. The vulva and distal vagina were examined and a swab was taken. It all appeared normal. We will follow up on those results. She has not had exposure to the partner she previously had. [id number] Jenn Solano MD [facility] [address],[place] [address] 05/23/2020 16:15:44 05/23/2020 16:54:00 Urgent desire to urinate 66434399 R39.15 Increased frequency of urination 411912456 R35.0 Venereal d isease screening 819448948 Z11.3 Contracept ion care management 311060195 Z30.9 [id number] [facility] [address],[place] [address] 08/02/2020 09:18:58 08/02/2020 10:01:57 Urinary tract infectious disease 19546007 N39.0 [id number] Henny Joseph [facility] [address],[place] [address] 02/05/2021 10:33:03 02/05/2021 12:08:03 Vaginitis 04986572 N76.0 Discussed use of mild soap like dove or ivory, cotton underwear w/out dye, hypoallerg enic detergent, wipe from front to back, avoid tub baths, keep perineum clean and dry, d/c use of baby wipes. Encouraged daily intake of yogurt or womens health probiotic. Internal and external affirm collected along with STD screen. [id number] Mirian Chandler [facility] [address],[place] [address] 12/17/2021 11:40:46 12/17/2021 12:36:48 Gynecologic examination 53172909 Z01.419 Take Calcium with Vitamin D 1200mg [...] orderedmam mo na Adult heal th examination 322045369 Z00.00 Will update routine labs to ensure body systems are in check Reproducti ve care management 789950984 Z31.9 Will evaluate [facility] to gain an idea of fertilityD oesn't use BC & has never gotten . [id number] [facility] [address],[place] [address] 07/24/2022 11:13:17 07/24/2022 12:33:26 Trying to conceive 071908341 Z31.9 [id number] [facility] [address],[place] [address] 06/04/2023 09:50:45 06/04/2023 10:35:27 Irregular periods 61131381 N92.6 Today we reviewed her menstrual applicatio [...] and review of plan of care. [id number] Janice Lanier [facility] [address],[place] [address] 01/01/2024 12:14:39 01/01/2024 12:40:58 Uncertain viability of 447564767 O36.80X0 Z3A.01 [id number] Sofia Wakefield [facility] [address],[place] [address] 01/14/2024 16:45:29 01/14/2024 17:19:04 [id number] [facility] [address],[place] [address] 01/14/2024 16:45:51 01/15/2024 09:47:50 Amenorrhea 66987367 N91.2 [id number] [facility] [address],[place] [address] 02/18/2024 16:44:03 02/18/2024 23:27:31 screening 824188750 Z36.82 Z3A.13 [id number] Sherrie Blankenship [facility] [address],[place] [address] 02/18/2024 16:44:43 02/19/2024 11:36:35 Routine care 768367484 Z34.90 Gestation period, 12 weeks 98894437 Z3A.12 [id number] [facility] [address],[place] [address] 03/17/2024 16:49:53 03/17/2024 17:25:00 Gestation period, 17 weeks 60082663 Z3A.17 [id number] Guerita Tino [facility] [address],[place] [address] 03/23/2024 15:14:06 03/23/2024 15:35:59 Vaginitis 31065453 N76.0 [id number] Irma Mendoza [facility] [address],[place] [address] 03/31/2024 13:01:02 03/31/2024 13:23:11 Urinary tract infectious disease 79144968 N39.0 Yeast detected 114589218 R89.5 [id number] [facility] [address],[place] [address] 04/07/2024 11:33:40 04/07/2024 12:52:43 screening for malformation 659299731 Z36.3 Z3A.20 [id number] Katherin Hammodn CNM [facility] [address],[place] [address] 04/07/2024 11:34:02 04/07/2024 13:01:19 Gestation period, 20 weeks 98653236 Z3A.20 continue vitamin Placenta p revia partialis [id number] O44.20 [id number] [facility] [address],[place] [address] 05/05/2024 09:20:42 05/05/2024 10:25:15 Placenta circumvallata [id number] O43.112 O44.40 Z3A.24 [id number] Katherin Hammond [facility] [address],[place] [address] 05/05/2024 09:21:22 05/05/2024 10:52:21 Gestation period, 24 weeks [id number] Z3A.24 [id number] [facility] [address],[place] [address] 06/10/2024 09:53:50 06/10/2024 11:35:44 Gestation period, 29 weeks [id number] Z3A.29 [id number] [facility] [address],[place] [address] 06/23/2024 10:51:13 06/23/2024 12:11:51 Gestation period, 31 weeks [id number] Z3A.31 [id number] [facility] [address],[place] [address] 06/28/2024 11:47:52 06/28/2024 12:42:11 Spotting per vagina in 611389739 O26.853 Z3A.31 [id number] [facility] [address],[place] [address] 07/07/2024 09:24:38 07/07/2024 10:06:57 Placenta circumvallata 1096032 O43.113 Z3A.33 [id number] [facility] [address],[place] [address] 07/07/2024 09:24:57 07/07/2024 10:26:33 Gestation period, 33 weeks [id number] Z3A.33 [id number] [facility] [address],[place] [address] 07/16/2024 09:43:14 07/16/2024 10:06:11 Gestation period, 34 weeks [id number] Z3A.34 [id number] [facility] [address],[place] [address] 07/23/2024 11:43:30 07/23/2024 12:37:39 screening [id number] Z36.85 - induced hypertension 48085870 O13.9 Gestation period, 35 weeks 69459726 Z3A.35 [id number] Sherrie Blankenship [facility] [address],[place] [address] 07/23/2024 18:00:14 07/26/2024 02:46:21 -induced hypertension 78303129 O13.9 [id number] Shantell Bateman [facility] [address],[place] [address] 07/28/2024 11:42:11 07/29/2024 09:44:31 Chronic hypertension complicating AND/OR reason for care during 23980722 O16.9 [id number] Sofia Wakefield [facility] [address],[place] [address] 07/28/2024 11:43:02 07/28/2024 13:33:13 Chronic hypertension complicating AND/OR reason for care during 10811148 O16.3 Z3A.36 [id number] [facility] [address],[place] [address] 07/28/2024 11:43:24 07/28/2024 14:09:14 Gestation period, 36 weeks [id number] Z3A.36 Health Concerns Section Related Observation LastModified by Organization Detai ls LastModified Time None Recorded Concern Status LastModified by Organization Details LastModified Time None Recorded Advance Directives Directive N: Payers Encounter Date Sequence Insurance Name Policy Number Policy Ellison Covered Member ID Ellison Member ID Guarantor Name 07/23/2024 1 [employer] [id number] Ira Apple [id number] Ira Zechariah 07/28/2024 1 [employer] [id number] Ira Boeser [id number] Ira Boeser 07/28/2024 1 [facility] [id number] Ira Boeser [id number] Ira Boeser 07/28/2024 1 [facility] [id number] Ira Boeser [id number] Ira Boeser OBGyn Episode Ob Episode Information Episode Created Date Number of Fetuses Patient Bloodtype Patient rh Status Prepregnancy Weight lbs Domestic Partner Domestic Partner Phone Father Name Button Tacker Status 02/18/20 24 1 A Positive 153 OPEN Fetus Data First Name Last Name Admitted to NICU Weight (g) Sex Living Outcome Pediatric Complications Fetus ID Race Codes Race Delivery Type 13860 Problems Problem Notes Checking BS x 2 wk07/19/2024 referral to cardiology for chest pain and shortness of breathe had holter monitor done Cardiolgy consult scheduled Dr Nicholson 08/02/24 1030 Problem Name Start Date End Date Resolution Snomed Code Not e Blood glucose outside reference range 248404898 decided on 3 hr gtt sced 06/17 Mixed anxiety and depressive disorder 828366781 no curre nt meds Hemorrhoidectomy 24495561 202 2 with colonoscopy Placenta previa marginalis 68898431 resolved -induced hypertension 83505474 37wk delivery , testing Herpes simplex 85532933 on bl ood test, plan 36 week valtrex, as a precaution2/4 Outbreak Valtrex 500mg BID x3 days , followed by daily suppression until delivery Attention deficit hyperactivity disorder 695043213 no cu rrent meds Alber Calculation Initial [...] Type Weight in lbs Pre/Post Dialysis Refused 158.257163876574 BP Diastolic BP Location Tested BP Systolic BP Type 93 125 Fetus Heart Rate Present Fetus Movement A No Comments reviewed history, no current medications, moving from [place] to [place] this weekend with FOB, doing well, some stress after told family about , reviewed US, blood work complete, ok for flu and covid, start routine care Flowsheet Date 03/17/2024 Nunez Score Blood Edema Fundus Height Fundus Units Glucose Ketones Leukocytes Nitrite Labor Signs Protein Cervic Dilation Cervic Effacement Cervic Station none Type Weight in lbs Pre/Post Dialysis Refused 167.146090021606 BP Diastolic BP Location Tested BP Systolic [...] Weight in lbs Pre/Post Dialysis Refused Weight 168.168554270737 BP Diastolic BP Location Tested BP Systolic BP Type 85 L arm 126 sitting Fetus Heart Rate Present Fetus Movement Comments Flowsheet Date 03/31/2024 Nunez Score Blood Edema Fundus Height Fundus Units Glucose Ketones Leukocytes Nitrite Labor Signs Protein Cervic Dilation Cervic Effacement Cervic Station Type Weight in lbs Pre/Post Dialysis Refused Weight 168.732408151757 BP Diastolic BP Location Tested BP Systolic [...] Type Weight in lbs Pre/Post Dialysis Refused 171.696107654123 BP Diastolic BP Location Tested BP Systolic [...] Type Weight in lbs Pre/Post Dialysis Refused 182.839307518439 BP Diastolic BP Location Tested BP Systolic [...] Weight in lbs Pre/Post Dialysis Refused Weight 193.044664628485 BP Diastolic BP Location Tested BP Systolic [...] Type Weight in lbs Pre/Post Dialysis Refused 196.070163675646 BP Diastolic BP Location Tested BP Systolic BP Type 87 139 Fetus Heart Rate Present Fetus Movement A Yes Comments bp elevated last night with chest tightness, had this 2 years ago had echo and cardiac workup all was negative, went away and now back only at hs, feels fine now, will plan leaf sorter. passed 3 hr GCTnormotensive today, +FM precautions [...] Type Weight in lbs Pre/Post Dialysis Refused 198.519257232734 BP Diastolic BP Location Tested BP Systolic [...] Type Weight in lbs Pre/Post Dialysis Refused 205.663877238739 BP Diastolic BP Location Tested BP Systolic [...] Type Weight in lbs Pre/Post Dialysis Refused 202.153843630664 BP Diastolic BP Location Tested BP Systolic [...] Weight in lbs Pre/Post Dialysis Refused Weight 202.544014532966 BP Diastolic BP Location Tested BP Systolic [...] Type Weight in lbs Pre/Post Dialysis Refused 205.005278509061 BP Diastolic BP Location Tested BP Systolic BP Type 101 155 108 160 Fetus Heart Rate Present Fetus Movement A Yes Comments Patient has had some pain an d back pain and swelling. denies mondragon, visual changes, epigastric pain to LD for evaluation Flowsheet Date 08/03/2024 Nunez Score Blood Edema Fundus Height Fundus [...]
--- OUTSIDE RECORDS SUMMARY | 2024-08-03 17:48 | XMS_ITS | Patient Health Summary ---
Author Organization [facility] Address [address] [facility] [place] [address] Care Team Providers Care Cathead Worker Name Role Phone Unavailable Primary Care Provider Unavailabl e Note from [facility],non-owned Affiliates and Associated Physician Practices is amultiple site organization consisting of ambulatory clinics and hospital sitesin [place], [place], [place] and [place]. This disclosure is being madepursuant to the Care Everywhere program and may not contain all information available regarding this patient. Last updated 18.[facility] Allergies * Citalopram(Rash) -Medium Criticality * [...] Comments Blood Pressure 132/84 07/08/2020 10:27 AM TRAFFIC SERGEANT Pulse 85 07/08/2020 10:27 AM TRAFFIC SERGEANT Temperature 37.2 C (99 F) 07/08/2020 10:27 AM TRAFFIC SERGEANT Respiratory Rate 16 07/08/2020 10:27 AM TRAFFIC SERGEANT Oxygen Saturation 98% 07/08/2020 10:27 AM TRAFFIC SERGEANT Inhaled Oxygen Concentration - - Weight 77.1 kg (170 lb) 07/08/2020 10:27 AM TRAFFIC SERGEANT Height 167.6 cm (5' 6 ) 07/08/2020 10:27 AM TRAFFIC SERGEANT Body Mass Index 27.44 07/08/2020 10:27 AM TRAFFIC SERGEANT
--- OUTSIDE RECORDS SUMMARY | 2024-08-03 17:48 | XMS_ITS | Encounter Summary ---
Author Organization [facility] Address [address] [place] [address] Care Team Providers Care Manufacturing Test Engineer Name Role Phone Vikash Ibarra MD Primary Care Provider [phone] Reason for Referral * Surgical (Routine) - Closed Specialty Diagnoses / Procedures Referred By Amanda so Referred To Contact Procedures Case request operating room: COLONOSCOPY DIAGNOSTIC WITH/WITHOUT SPECIMEN BRUSH/WASH POSSIBLE POLYPECTOMY POSSIBLE BIOPSY Sami Andersen MD [address] [facility] [address] [place] [address] Phone: tel: fax: Referral ID Status Reason Start Date Expiration Date Visits Re quested Visits Authorized [id number] Closed 02/09/2021 03/11/2022 1 1 Encounter Details Date Type Department Care Team (Late st Contact Info) Description 02/09/2021 Prep for Procedure [facility] [address] [place], [place] [address] Sami Andersen MD [address] [facility] [address] [place] [address] Social History Tobacco Use Types [...] complication documented in this encounter Care Teams Manufacturing Test Engineer Relationship Specialty Start Date End Date Vikash Ibarra MD [address] [place] [address] [address] [place] [address] PCP - General FAMILY PRACTICE 02/08/21 documented as of this encounter
--- OUTSIDE RECORDS SUMMARY | 2024-08-03 17:48 | XMS_ITS | Clinical Summary ---
Author Organization [facility] Address [address] [place] [address] Care Team Providers Care Leather Scrubber Name Role Phone Vikash Ibarra MD Primary Care Provider [phone] Allergies Active Allergy Reactions Criticality Noted Date [...] patient's age to complete this topic Insurance [facility] Care Teams Leather Scrubber Relationship Specialty Start Date End Date Vikash Ibarra MD [address] [place] [address] [address] [place] [address] PCP - General FAMILY PRACTICE 02/08/21
--- OUTSIDE RECORDS SUMMARY | 2024-08-03 17:48 | XMS_ITS | Encounter Summary ---
Author Organization [facility] Address [address] [place] [address] Care Team Providers Care Player Development Executive Name Role Phone Vikash Ibarra MD Primary Care Provider [phone] Encounter Details Date Type Department Care Team (Late st Contact Info) Description 07/25/2022 Semmx Message [facility] Patient Accounts [address] [place] [address] [facility] Provider Monthly Credit Card Payment Social [...] on filedocumented in this encounter Care Teams Player Development Executive Relationship Specialty Start Date End Date Vikash Ibarra MD [address] [place] [address] [address] [place] [address] PCP - General FAMILY PRACTICE 02/08/21 documented as of this encounter
--- OUTSIDE RECORDS SUMMARY | 2024-08-03 17:48 | XMS_ITS | Clinical Summary ---
Author Organization [facility] Address [address] [facility] [place] [address] Care Team Providers Care Commercial Management Accountant Name Role Phone Unavailable Primary Care Provider Unavailabl e Source Comments [facility],non-owned Affiliates and Associated Physician Practices is amultiple site organization consisting of ambulatory clinics and hospital sitesin [place], [place], [place] and [place]. This disclosure is being madepursuant to the Care Everywhere program and may not contain all information available regarding this patient. Last updated 18.[facility] Allergies Active Allergy Reactions Criticality Noted Date [...] Comments Blood Pressure 132/84 07/08/2020 10:27 AM CHIEF LOCK TENDER OPERATOR Pulse 85 07/08/2020 10:27 AM CHIEF LOCK TENDER OPERATOR Temperature 37.2 C (99 F) 07/08/2020 10:27 AM CHIEF LOCK TENDER OPERATOR Respiratory Rate 16 07/08/2020 10:27 AM CHIEF LOCK TENDER OPERATOR Oxygen Saturation 98% 07/08/2020 10:27 AM CHIEF LOCK TENDER OPERATOR Inhaled Oxygen Concentration - - Weight 77.1 kg (170 lb) 07/08/2020 10:27 AM CHIEF LOCK TENDER OPERATOR Height 167.6 cm (5' 6 ) 07/08/2020 10:27 AM CHIEF LOCK TENDER OPERATOR Body Mass Index 27.44 07/08/2020 10:27 AM CHIEF LOCK TENDER OPERATOR Plan of Treatment Health Maintenance Due [...] Jenny Apple Personal/Famil y Self [address] [place] [address]
--- OUTSIDE RECORDS SUMMARY | 2024-08-03 17:48 | XMS_ITS | Encounter Summary ---
Author Organization [facility] Address [address] [place] [address] Care Team Providers Care Intern Product Marketing Manager Name Role Phone Vikash Ibarra MD Primary Care Provider [phone] Encounter Details Date Type Department Care Team (Late st Contact Info) Description 07/18/2021 [facility] Message Enc [facility] General Surgery [address], [address] [place] [address] Sami Andersen MD [address] [address] Question Social History Tobacco Use [...] on filedocumented in this encounter Care Teams Intern Product Marketing Manager Relationship Specialty Start Date End Date Vikash Ibarra MD [address] [place] [address] [address] [place] [address] PCP - General FAMILY PRACTICE 9/16/21 documented as of this encounter
--- OUTSIDE RECORDS SUMMARY | 2024-08-03 17:48 | XMS_ITS | Encounter Summary ---
Author Organization [facility] Address [address] [facility] [place] [address] Care Team Providers Care Manager Chemistry Name Role Phone Unavailable Primary Care Provider Unavailabl e Encounter Details Date Type Department Care Team (Latest Contact Info) Description 03/09/2024 Transcribe Orders [facility] Care Pilot [address] [place] [address] Cassandra Butt MD [address] [facility] [address] [facility] [address] [place] [address] resulting from in vitro fertilization [...]
--- OUTSIDE RECORDS SUMMARY | 2024-08-03 17:48 | XMS_ITS | Encounter Summary ---
Author Organization [facility] Address Formerly [facility] [place] [address] Care Team Providers Care Worsted Winder Name Role Phone Vikash Ibarra MD Primary Care Provider [phone] Encounter Details Date Type Department Care Team (Late st Contact Info) Description 04/26/2022 [employer] Message Enc [facility] Medical [facility] General Surgery - [address], [address] [place] [address] Sami Andersen MD [address] [id number] Question Social History Tobacco Use Types Packs/Day [...] on filedocumented in this encounter Care Teams Worsted Winder Relationship Specialty Start Date End Date Vikash Ibarra MD [address] [place] [address] [address] [place] [address] PCP - General FAMILY PRACTICE 02/08/21 documented as of this encounter
--- OUTSIDE RECORDS SUMMARY | 2024-08-03 17:48 | XMS_ITS | Referral Summary ---
Author Organization [facility] [email or web address] Address [address] [facility] [place] [address] Care Team Providers Care Tile Picker Name Role Phone Unavailable Primary Care Provider Unavailabl e Source Comments [facility] [email or web address],non-owned Affiliates and Associated Physician Practices is amultiple site organization consisting of ambulatory clinics and hospital sitesin [place], [place], [place] and [place]. This disclosure is being madepursuant to the Care Everywhere program and may not contain all information available regarding this patient. Last updated 18.[facility] [email or web address] Allergies Active Allergy Reactions Criticality Noted Date [...] Comments Blood Pressure 132/84 07/08/2020 10:27 AM PERSONNEL PSYCHOLOGIST Pulse 85 07/08/2020 10:27 AM PERSONNEL PSYCHOLOGIST Temperature 37.2 C (99 F) 07/08/2020 10:27 AM PERSONNEL PSYCHOLOGIST Respiratory Rate 16 07/08/2020 10:27 AM PERSONNEL PSYCHOLOGIST Oxygen Saturation 98% 07/08/2020 10:27 AM PERSONNEL PSYCHOLOGIST Inhaled Oxygen Concentration - - Weight 77.1 kg (170 lb) 07/08/2020 10:27 AM PERSONNEL PSYCHOLOGIST Height 167.6 cm (5' 6 ) 07/08/2020 10:27 AM PERSONNEL PSYCHOLOGIST Body Mass Index 27.44 07/08/2020 10:27 AM PERSONNEL PSYCHOLOGIST Plan of Treatment Not on file Jenny Apple Personal/Famil y Self [address] [place] [address]
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
[2024-08-04] VITALS (178 sets, daily range): BP systolic 113–161; BP diastolic 23–101; PULSE 62–134; TEMP 36.5–36.9; O2SAT 83–100
[2024-08-04] MEDS: miSOPROStol 25 MCG TABLET 50 MCG BUCCAL ×2 (01:23→05:34)
--- NOTE | 2024-08-04 07:28 | PM.OBPNLAB ---
Pain Control Date/time seen: 08/04/24 07:28 Comments: pt resting in between contractions Pelvic Exam Dilation (cm): 1 Effacement (%): 70 station: -2 Comments: ferrell bulb placed with 40 cc saline without difficulty, pt tolerated well Contractions Monitor mode: External Status Comments: category 1
[2024-08-04] MEDS: ONDANSETRON INJ 4 MG/2 ML VIAL IV PUSH ×2 (08:02→23:24)
[2024-08-04] MEDS: LACTATED RINGERS 1,000 ML 125 ML IV CONT ×3 (09:36→19:01)
[2024-08-04] MEDS: OXYTOCIN 30 UNITS/NS 500 ML 30 UNITS/500 ML BAG IV CONT (09:36)
[2024-08-04] MEDS: fentaNYL CITRATE INJ (*CRX) 100 MCG/2 ML VIAL 50 MCG IV PUSH ×2 (10:17→11:48)
--- NOTE | 2024-08-04 14:33 | PM.OBPNLAB ---
Pain Control Date/time seen: 08/04/24 14:33 Comments: SVE 3+/80/-2 AROM moderate amount of clear fluid Pelvic Exam Dilation (cm): 1 Effacement (%): 70 station: -2 Contractions Monitor mode: External
[2024-08-04] MEDS: valACYclovir HCL 500 MG TABLET PO (20:36)
[2024-08-05] VITALS (66 sets, daily range): BP systolic 110–157; BP diastolic 60–88; PULSE 66–120; RESP 16–18; TEMP 36.4–37.2; O2SAT 98–100
[2024-08-05] MEDS: LACTATED RINGERS 1,000 ML 125 ML IV CONT (02:54)
[2024-08-05] MEDS: miSOPROStol 200 MCG TABLET 800 MCG SUBLINGUAL (03:27)
[2024-08-05] MEDS: OXYTOCIN 30 UNITS/NS 500 ML 30 UNITS/500 ML BAG 125 UNITS IV CONT (03:38)
--- NOTE | 2024-08-05 03:39 | PM.OBPRVD ---
OB - Vaginal Delivery Note Procedure Delivery date: 08/05/24 Events: Gestational Hypertension Induction method: AROM, Per Misoprostol Protocol and Per Pitocin Protocol Delivery monitor: External FHT and Internal Uterine Route of delivery: Episiotomy description: None Laceration Description: Perineal - 2nd Degree Delivery repair: vicryl Specimen: No Quantitative Blood Loss (ml): 250 Anesthesia type: Epidural Disposition: Floor Narrative: small amount of bleeding after placenta delivered, cytotec and TXA, mother and baby in stable condition
[2024-08-05] MEDS: TRANEXAMIC ACID 1,000 MG in SODIUM CHLORIDE 0.9% IV 50 ML 360 MG IVPB (03:54)
[2024-08-05] MEDS: CLINDAMYCIN 900 MG/D5W 50 ML 900 MG/50 ML PIGGYBACK 50 MG IVPB (04:09)
[2024-08-05] MEDS: IBUPROFEN 600 MG TABLET PO ×3 (04:35→19:20)
[2024-08-05] MEDS: WITCH HAZEL 40 PADS 1 PAD TOPICAL (06:18)
[2024-08-05] MEDS: DIBUCAINE 1% OINTMENT 30 GM TUBE 1 APPLIC TOPICAL (19:20)
[2024-08-05] MEDS: ACETAMINOPHEN 325 MG TABLET 650 MG PO (19:20)
[2024-08-05] MEDS: DOCUSATE SODIUM 100 MG CAPSULE PO (19:20)
[2024-08-06 03:20] VITALS: BP 105/67; PULSE 72; RESP 18; TEMP 36.2; O2SAT 98
[2024-08-06] MEDS: IBUPROFEN 600 MG TABLET PO ×3 (03:20→16:06)
[2024-08-06] MEDS: ACETAMINOPHEN 325 MG TABLET 650 MG PO ×2 (03:20→21:30)
[2024-08-06 04:07] LABS: Hemoglobin 9.2 g/dL (12.0-15.0)
[2024-08-06 07:35] VITALS: BP 113/75; PULSE 69; RESP 18; TEMP 36.6; O2SAT 98
--- NOTE | 2024-08-06 07:44 | P.PNOB_ITS ---
OB - PN: Subj Subjective Date/time seen: 08/06/24 07:44 Interval history: pp day 1 doing well OB - PN: Obj Data Labs 08/06/24 03:32 08/03/24 16:43 Labs: Laboratory Results - last 24 hr 08/06/24 03:32 Hgb 9.2 L Hct 29.0 L OB - PN A/P Plan day: 1 Plan: routine care Time Spent With Patient Time: Total time spent is greater than 50% in coordination of care (as documented) at patient's floor/unit and/or counseling patient: Review of Systems 2 Review of Systems: All systems reviewed & are unremarkable except as noted in HPI and below Exam 2 Const: General: cooperative and healthy appearing Chest: Chest palpation & inspection: normal inspection of the chest Resp: Effort & Inspection: normal respiratory effort Cardio: Rate: regular rate
[2024-08-06] MEDS: DOCUSATE SODIUM 100 MG CAPSULE PO ×2 (08:55→16:06)
[2024-08-06] MEDS: POLYSACCHARIDE IRON COMPLEX 150 MG CAPSULE PO ×2 (08:56→16:06)
--- NOTE | 2024-08-06 17:25 | WPDANLDPN2 ---
Anes-Prog Note L&D Date/Time: 08/06/24 17:25 Comfortable throughout: labor and delivery Neuraxial method: epidural Epidural/Spinal procedure site: clean & non-tender Neuro status: Neuro function grossly intact. Cardiovascular status: normal Respiratory status: normal Airway patency: baseline Mental status: baseline Post-Op hydration status: normal Vital Signs: Last Vital Signs Temp 98 F 08/06/24 07:35 Pulse 69 08/06/24 07:35 Resp 18 08/06/24 07:35 BP 113/75 08/06/24 07:35 Pulse Ox 98 08/06/24 07:35 O2 Del Method Room Air 08/05/24 06:45 Pain score (VAS): 0/10 I/O: Intake & Output 08/06/24 08/06/24 08/06/24 07:59 15:59 23:59 Intake Total 480 Balance 480 Post-procedural complaints: none Patient feedback: Patient satisfied with anesthetic care.
[2024-08-06 20:15] VITALS: BP 141/83; PULSE 92; RESP 16; TEMP 36.9; O2SAT 99
[2024-08-07] MEDS: IBUPROFEN 600 MG TABLET PO ×3 (01:35→15:18)
[2024-08-07] MEDS: ACETAMINOPHEN 325 MG TABLET 650 MG PO ×2 (07:14→15:19)
[2024-08-07] MEDS: DOCUSATE SODIUM 100 MG CAPSULE PO ×2 (07:15→15:20)
[2024-08-07] MEDS: POLYSACCHARIDE IRON COMPLEX 150 MG CAPSULE PO (07:15)
[2024-08-07 08:00] VITALS: BP 148/95; PULSE 81; RESP 16; TEMP 36.5; O2SAT 100
--- NOTE | 2024-08-07 14:00 | P.PNOB_ITS ---
OB - PN: Subj Subjective Date/time seen: 08/07/24 14:00 Interval history: pp day 1 doing well Patient comments: no complaints, pain well controlled and tolerating diet OB - PN: Obj Data Labs 08/06/24 03:32 08/03/24 16:43 OB - PN A/P Plan day: 2 Plan: routine care and discharge home Time Spent With Patient Time: Total time spent is greater than 50% in coordination of care (as documented) at patient's floor/unit and/or counseling patient: Exam 2 Const: General: comfortable and no acute distress Resp: Effort & Inspection: normal respiratory effort Auscultation: no rales, no rhonchi and no wheezes Cardio: Rate: regular rate Heart sounds: no click, no murmurs and no rubs GI: GI Palp: Yes Soft to palpation and No Tenderness to palpation present (GI) Auscultation: normal bowel sounds Extrem: General: normal to inspection, no pedal edema and no calf tenderness
--- NOTE | 2024-08-07 14:01 | PM.OBDSVD ---
DS: Admitting Diagnosis Discharge Date 08/06/2024 Admitting Diagnosis Term DS: Discharge Diagnosis Discharge Diagnosis (1) Term delivered: Code(s): O80 - Encounter for full-term uncomplicated delivery Status: Acute OB - DS: Summary OB Procedures : None OB Procedures Intrapartum: Spontaneous Vag Delivery OB Procedures: : None Peripartum Data Laceration Description: Perineal - 2nd Degree Episiotomy description: None Time Spent with Patient Time attestation: Total time spent providing and/or coordinating discharge services: Discharge Plan Discharge Discharging Clinician: Kris Huynh Patient Disposition: Home, Self-Care Activity: pelvic rest Diet: regular Patient Instructions: Antibiotic Form Patient Language: Divehi Stand Alone Forms: General Discharge Information Follow-up/Referrals: Kris Huynh MD [Physician] - Discharge Medications: Continued valacyclovir [Valtrex] 500 mg tablet 500 mg PO DAILY atomoxetine [Strattera] 60 mg capsule 60 mg PO QAM Qty: 30 11RF albuterol sulfate [Ventolin HFA] 90 mcg/actuation HFA aerosol inhaler 2 puff INHALATION Q4H PRN (Reason: SOB) Qty: 8.5 11RF Date of admission: 08/03/24 15:51 Primary Care Provider: Vikash Ibarra Admitting Provider: Kris Huynh Attending physician on admission: Kris Huynh Condition: Stable
[2024-08-07] MEDS: BENZOCAINE 20% AER SPR (*SP) 56 GM CAN 1 SPRAY TOPICAL (15:20)
[2024-08-07] MEDS: DIBUCAINE 1% OINTMENT 30 GM TUBE 1 APPLIC TOPICAL (15:20)
[2024-08-07] MEDS: WITCH HAZEL 40 PADS 1 PAD TOPICAL (15:20)
[2024-08-10 09:53] VITALS: BP 144/90; PULSE 88; RESP 20; TEMP 36.9; O2SAT 98
== END 2024-08-07 15:33 | disposition home or self-care (01) | DRG 807 ==
LOC: ANHLDR 15:55 → ANHOB2 08-05 06:42
PROVIDERS: Admitting Provider Obstetrics & Gynecology; PCP Family Medicine; Referring Provider Advanced Practice Midwife; Visit Provider Obstetrics & Gynecology
DX: O13.4 Gestational [pregnancy-induced] hypertension without significant proteinuria, complicating childbirth (principal); Z37.0 Single live birth; Z3A.37 37 weeks gestation of pregnancy; O70.1 Second degree perineal laceration during delivery
CPT/HCPCS: 36415; 80053; 84550; 85014; 85018; 85025; 86593; 86703; 86850; 86900; 86901; A9270; G0432; J2405; J2590; J2795; J3010; J7120